=== PATIENT | male | born 1965 | race Caucasian/White ===

== ENCOUNTER → 2018-12-20 09:54 | Outpatient (CLI) | payer BC, SELFPAY ==
[2018-12-20 10:27] LABS: Basophils # 0.1 K/mm3 (0-0.2); Basophils % 0.6 % (0.1-2.0); Eosinophils # 0.3 K/mm3 (0.0-0.4); Eosinophils % 2.4 % (0.1-12.0); Hematocrit 45.5 % (42.0-52.0); Lymphocytes # 3.6 K/mm3 (0.7-4.5); Mean Corpuscular HGB Conc 32.9 g/dL (31.8-35.4); Mean Corpuscular Hemoglobin 29.5 pg (27.0-31.2); Mean Corpuscular Volume 89.5 fl (80-94); Mean Platelet Volume 7.2 fl (7.4-10.4); Monocytes % 7.3 % (1.7-9.3); Neutrophils # 9.2 K/mm3 (1.8-7.8); Neutrophils % 64.8 % (37.0-80.0); Platelet Count 277 K/mm3 (142-424); Red Blood Count 5.09 M/mm3 (4.60-6.20); Red Cell Distribution Width 13.8 % (11.5-17.5); White Blood Count 14.2 K/mm3 (4.8-10.8)
[2018-12-20 10:37] LABS: Alanine Aminotransferase 45 U/L (12-78); Albumin Level 3.3 gm/dL (3.4-5.0); Albumin/Globulin Ratio 0.8 (1.1-1.8); Alkaline Phosphatase 75 U/L (46-116); Anion Gap 11.3 mEq/L (5-15); Aspartate Amino Transferase 17 U/L (15-37); Bilirubin,Total 0.5 mg/dL (0.2-1.0); Blood Urea Nitrogen 16 mg/dL (7-18); Calcium 8.6 mg/dL (8.5-10.1); Carbon Dioxide 26 mmol/L (21.0-32.0); Chloride 105 mmol/L (98-107); Creatinine,Serum 1.02 mg/dL (0.70-1.30); Estimated Glomerular Filt Rate 77 ml/min (>60); GFR (African American) 93 ML/MIN (>60); Globulin 4.4 gm/dl (1.3-3.2); Glucose 116 mg/dL (74-106); Potassium 4.3 mmoL/L (3.5-5.1); Sodium 138 mmol/L (136-145); Total Protein,Serum 7.7 gm/dL (6.4-8.2)
[2018-12-20 11:58] LABS: Bilirubin,Direct 0.1 mg/dL (0.0-0.2); Chol/HDL Ratio 5.3 (1-3.5); Cholesterol 197 mg/dL (140-200); HDL Cholesterol 37 mg/dL (27-67); LDL Cholesterol 131 mg/dL (0-130); Triglycerides 144 mg/dL (30-200); VLDL Cholesterol 29 mg/dL (0-40)
--- NOTE | 2018-12-20 13:07 | CT_ITS ---
CT abdomen pelvis w con CLINICAL INDICATION: Lower abdominal pain extending to the right side ITS.REASON: ABD PAIN ORDERING PHYSICIAN: Daniela Dominguez APRN PATIENT AGE: 53 years COMPARISON: 09/21/2012 TECHNIQUE: Axial images obtained with sagittal and coronal reformats. All CT scans at the facility use one or more dose reduction, viz: automated exposure control, ma/kV adjustment per patient size (including targeted exams where dose is matched to indication, i.e. head), or iterative reconstruction technique. PROCEDURE: Oral Contrast: Gastroview IV Contrast: 75 mL Omnipaque 350. FINDINGS: Lung bases are clear. Postcholecystectomy change. The liver, spleen, adrenal glands, pancreas, and kidneys have an unremarkable appearance. Negative appendix. No intestinal obstruction or free air. No evidence of appendicitis. No intestinal obstruction or free air. There is diverticulosis of the descending and sigmoid colon. There is thickening of the junction of the descending and sigmoid colon in the left lower quadrant with mild stranding of the fat in this region consistent with diverticulitis. No abscess or free air evident. There is a small fat-containing lymph node in the left inguinal region at 2 points 8 x 1.6 cm. There are mildly prominent bilateral inguinal lymph nodes. These however do contain central fatty hilum and are not significantly changed. No acute bony findings. IMPRESSION: Acute diverticulitis in the left lower quadrant. No abscess or perforation. There is diverticulosis of the descending and sigmoid colon
== END ==
PROVIDERS: PCP Nurse Practitioner; Referring Provider Internal Medicine Cardiovascular Disease; Visit Provider Nurse Practitioner Family
DX: R10.30 Lower abdominal pain, unspecified (principal); E78.5 Hyperlipidemia, unspecified; I25.10 Atherosclerotic heart disease of native coronary artery without angina pectoris
CPT/HCPCS: 36415; 74177; 80053; 80061; 82248; 85025; Q9967

== ENCOUNTER → 2019-04-01 07:12 | Outpatient (CLI) | payer BC, SELFPAY | PROVIDERS: PCP Family Medicine; Visit Provider Internal Medicine | DX: E78.2 Mixed hyperlipidemia (principal); I25.10 Atherosclerotic heart disease of native coronary artery without angina pectoris; R06.09 Other forms of dyspnea; Z02.89 Encounter for other administrative examinations; Z95.5 Presence of coronary angioplasty implant and graft | CPT/HCPCS: 93306 ==

== ENCOUNTER → 2019-10-15 13:03 | Outpatient (CLI) | payer BC, SELFPAY ==
[2019-10-15 14:43] LABS: Alanine Aminotransferase 42 U/L (12-78); Albumin Level 4.3 g/dl (3.5-5.0); Alkaline Phosphatase 64 U/L (38-126); Aspartate Amino Transferase 45 U/L (17-59); Bilirubin,Indirect 0.4 mg/dL (0.0-0.9); Bilirubin,Total 0.4 mg/dl (0.2-1.3); Bilirubin,Unconjugated 0.6 mg/dL (0.0-1.1); Chol/HDL Ratio 5.7 (1-3.5); Cholesterol 249 mg/dl (140-200); HDL Cholesterol 44 mg/dl (40-60); Total Protein,Serum 7.4 g/dl (6.3-8.2); Triglycerides 252 mg/dl (30-150); VLDL Cholesterol 50 mg/dL (0-40)
[2019-10-15 14:54] LABS: Direct LDL Cholesterol 179.84 mg/dL (100-129)
== END ==
PROVIDERS: Visit Provider Internal Medicine Cardiovascular Disease
DX: I25.10 Atherosclerotic heart disease of native coronary artery without angina pectoris (principal); E78.2 Mixed hyperlipidemia; I10 Essential (primary) hypertension; R60.0 Localized edema; Z95.5 Presence of coronary angioplasty implant and graft
CPT/HCPCS: 36415; 80061; 80076

== ENCOUNTER → 2020-02-25 10:23 | Outpatient (CLI) | payer BC, SELFPAY ==
[2020-02-25 11:23] LABS: Alanine Aminotransferase 44 U/L (12-78); Aspartate Amino Transferase 38 U/L (17-59); Bilirubin,Unconjugated 0.3 mg/dL (0.0-1.1)
[2020-02-25 11:24] LABS: Alkaline Phosphatase 71 U/L (38-126); Bilirubin,Direct 0.1 mg/dl (0.0-0.4); Bilirubin,Indirect 0.3 mg/dL (0.0-0.9); Bilirubin,Total 0.4 mg/dl (0.2-1.3); Chol/HDL Ratio 3.8 (1-3.5); Cholesterol 188 mg/dl (140-200); HDL Cholesterol 49 mg/dl (40-60); Triglycerides 218 mg/dl (30-150); VLDL Cholesterol 44 mg/dL (0-40)
[2020-02-25 11:35] LABS: Direct LDL Cholesterol 119.18 mg/dL (100-129)
== END ==
PROVIDERS: Visit Provider Internal Medicine Cardiovascular Disease
DX: E78.5 Hyperlipidemia, unspecified (principal); F17.200 Nicotine dependence, unspecified, uncomplicated; G47.33 Obstructive sleep apnea (adult) (pediatric); I20.8 Other forms of angina pectoris; I20.9 Angina pectoris, unspecified; I50.30 Unspecified diastolic (congestive) heart failure; I50.42 Chronic combined systolic (congestive) and diastolic (congestive) heart failure; R06.00 Dyspnea, unspecified; R60.9 Edema, unspecified; Z95.5 Presence of coronary angioplasty implant and graft; I10 Essential (primary) hypertension; I25.10 Atherosclerotic heart disease of native coronary artery without angina pectoris; R06.09 Other forms of dyspnea; R07.9 Chest pain, unspecified
CPT/HCPCS: 36415; 80061; 80076

== ENCOUNTER → 2021-04-14 10:24 | Outpatient (CLI) | payer BC, SELFPAY ==
[2021-04-14 11:48] LABS: Alanine Aminotransferase 40 U/L (12-78); Alkaline Phosphatase 73 U/L (38-126); Anion Gap 14.7 mEq/L (5-15); Aspartate Amino Transferase 36 U/L (17-59); Bilirubin,Indirect 0.4 mg/dL (0.0-0.9); Bilirubin,Total 0.4 mg/dl (0.2-1.3); Bilirubin,Unconjugated 0.3 mg/dL (0.0-1.1); Blood Urea Nitrogen 18 mg/dl (9-20); Calcium 9.1 mg/dl (8.4-10.2); Carbon Dioxide 23 mmol/L (22.0-30.0); Chloride 106 mmol/L (98-107); Cholesterol 182 mg/dl (140-200); Estimated Glomerular Filt Rate 78 ml/min (>60); GFR (African American) 95 ML/MIN (>60); Glucose 128 mg/dl (74-100); HDL Cholesterol 45 mg/dl (40-60); Potassium 4.7 mmoL/L (3.5-5.1); Sodium 139 mmol/L (136-145); Total Protein,Serum 7.3 g/dl (6.3-8.2); Triglycerides 287 mg/dl (30-150); VLDL Cholesterol 57 mg/dL (0-40)
[2021-04-14 12:00] LABS: Direct LDL Cholesterol 94.43 mg/dL (100-129)
== END ==
PROVIDERS: Visit Provider Internal Medicine Cardiovascular Disease
DX: I50.30 Unspecified diastolic (congestive) heart failure (principal); I20.9 Angina pectoris, unspecified; R60.9 Edema, unspecified; I10 Essential (primary) hypertension; E78.5 Hyperlipidemia, unspecified; Z95.5 Presence of coronary angioplasty implant and graft
CPT/HCPCS: 36415; 80048; 80061; 80076

== ENCOUNTER 2021-04-17 13:26 | Emergency (ER) | payer BC, SELFPAY ==
[2021-04-17 13:45] VITALS: BP 150/68; PULSE 86; RESP 19; TEMP 36.7; O2SAT 96; BMI 56.9
--- NOTE | 2021-04-17 14:18 | HMH.EDUTC ---
[facility] Disposition Clinical Impression: Hematuria Qualifiers: Hematuria type: gross Qualified Code(s): R31.0 - Gross hematuria Disposition: Home, Self-Care Condition on Discharge: Good Instructions: DI for Hematuria Additional Instructions: Follow up with Dr Panda to ensure resolution and/or discuss additional testing Prescriptions: levoFLOXacin [Levaquin 500mg tab] 500 mg PO DAILY 7 Days #7 tab Transmission Status: Pending to [facility] Referrals: Tej Panda MD [Primary Care Provider] - Time of Disposition: 16:03 Medical Decision Making - Caleb Inquiry Pt receiving controlled substance: No Vital Signs: 04/17/21 13:45 Temperature 98.1 F Temperature Source Oral Pulse Rate [Right] 86 Respiratory Rate 19 Blood Pressure [Right Arm] 150/68 H Blood Pressure Mean [Right Arm] 95 02 Sat by Pulse Oximetry 96 - Lab Data Lab results reviewed: Yes: I reviewed the patient's lab results. Lab Results 04/17/21 14:45: Urine Color Yellow, Urine Appearance Clear, Urine pH 6.0, Ur Specific [place] 1.025, Urine Protein Negative, Urine Glucose (UA) Negative, Urine Ketones Negative, Urine Blood 3+, Urine Nitrate Negative, Urine Bilirubin Negative, Urine Urobilinogen 0.2, Ur Leukocyte Esterase Trace, Urine RBC 10-20, Urine WBC None, Ur Squamous Epith Cells 3-5, Urine Bacteria None 04/17/21 15:00: WBC 9.4, RBC 5.41, Hgb 16.7, Hct 51.0, MCV 94.2 H, MCH 30.8, MCHC 32.7, RDW 13.8, Plt Count 292, MPV 7.2 L, Neut % (Auto) 54.0, Lymph % (Auto) 34.0, [place] % (Auto) 7.3, Eos % (Auto) 3.7, Baso % (Auto) 1.0, Neut # (Auto) 5.1, Lymph # (Auto) 3.2, [place] # (Auto) 0.7, Eos # (Auto) 0.4, Baso # (Auto) 0.1 04/17/21 15:00: Sodium 142, Potassium 3.9, Chloride 103, Carbon Dioxide 29, Anion Gap 13.9, BUN 14, Creatinine 1.10, Estimated Creat Clear 83, Estimated GFR 70, Est GFR ( Amer) 85, Glucose 112 H, Calcium 9.2, Total Bilirubin 0.5, AST 45, ALT 48, Alkaline Phosphatase 77, Total Creatine Kinase 176 H, Total Protein 7.6, Albumin 4.0, Globulin 3.6 H, Albumin/Globulin Ratio 1.1 Result diagrams: 04/17/21 15:00 04/17/21 15:00 Orders (Tests/Meds): ORDERS Category Date Time Status Urine Culture Stat Micro 04/17/21 15:48 Ordered [facility] HPI - General Stated complaint: blood in urine Time Seen by Provider: 04/17/21 14:33 Mode of Arrival: Ambulatory Source of Information: Patient Limitations: No Limitations Description of Symptoms (Recalled from Triage Doc. by RN): blood in urine starting yesterday. no pain and no other complaints. HEENT Symptoms (Recalled from RN notes): No Resp Symptoms (Recalled from RN notes): No Skin Symptoms (Recalled from RN notes): No MS Symptoms (Recalled from RN notes): No Functional Status (Recalled from RN notes): na - History of Present Illness Provider Complaint: Patient went fishing yesterday. When he got home, he urinated and noticed a red streak running down the side of the toilet bowl. He wiped with tissue and there was a small amount of bright red blood there as well. He urinated when he woke up this am and again there was a small amount of blood. He has a history of HTN, CHF, ALLIE. No history diabetes. No history renal failure. No history kidney stones. He is on Repatha because he could not tolerate statins. He takes Lasix for CHF. He denies fever, pain. No dysuria. No flank pain. No prior history of bleeding. He is on Plavix. Onset (ago): day(s) (1) Location: genitals Relieving factors: none Exacerbating factors: none Associated symptoms: denies other symptoms Treatments prior to arrival: none - Related Data Home Medications Medication Instructions Recorded Confirmed aspirin 81 mg tablet,delayed 81 mg PO QDAY 08/08/17 04/14/21 release levothyroxine 200 mcg tablet 200 mcg PO QDAY tab 08/08/17 04/14/21 Previous Rx's Medication Instructions Recorded furosemide 40 mg tablet 80 mg PO DAILY PRN #90 tab 05/31/19 potassium chloride 10 mEq 10 meq PO QDAY WI
[2021-04-17 14:59] LABS: Appearance,Urine CLEAR (Clear); Bilirubin,Urine Negative (Negative); Blood, Urine 3+ (Negative); Color,Urine YELLOW (Yellow); Glucose,Urine (UA) Negative (Negative); Ketones,Urine Negative (Negative); Leukocyte Esterase,Urine TRACE (Negative); Microscopic, Urine URINE MICROSCOPIC (MICROSCOPIC); Nitrate,Urine Negative (Negative); Protein,Urine Negative (Negative); Specific Gravity, Urine 1.025 (1.005-1.030); Urobilinogen,Urine 0.2 EU/dl (0.2)
[2021-04-17 15:35] LABS: Basophils # 0.1 K/mm3 (0-0.2); Eosinophils # 0.4 K/mm3 (0.0-0.4); Eosinophils % 3.7 % (0.1-12.0); Hemoglobin 16.7 g/dL (14.1-18.0); Lymphocytes # 3.2 K/mm3 (0.7-4.5); Mean Corpuscular HGB Conc 32.7 g/dL (31.8-35.4); Mean Corpuscular Hemoglobin 30.8 pg (27.0-31.2); Mean Corpuscular Volume 94.2 fl (80-94); Mean Platelet Volume 7.2 fl (7.4-10.4); Monocytes # 0.7 K/mm3 (0.1-1.0); Monocytes % 7.3 % (1.7-9.3); Neutrophils # 5.1 K/mm3 (1.8-7.8); Platelet Count 292 K/mm3 (142-424); Red Blood Count 5.41 M/mm3 (4.60-6.20); Red Cell Distribution Width 13.8 % (11.5-17.5); White Blood Count 9.4 K/mm3 (4.8-10.8)
[2021-04-17 15:36] LABS: Chloride 103 mmol/L (98-107); Potassium 3.9 mmoL/L (3.5-5.1); Sodium 142 mmol/L (136-145)
[2021-04-17 15:39] LABS: Alanine Aminotransferase 48 U/L (12-78); Albumin/Globulin Ratio 1.1 (1.1-1.8); Alkaline Phosphatase 77 U/L (38-126); Anion Gap 13.9 mEq/L (5-15); Aspartate Amino Transferase 45 U/L (17-59); Bilirubin,Total 0.5 mg/dl (0.2-1.3); Blood Urea Nitrogen 14 mg/dl (9-20); Calcium 9.2 mg/dl (8.4-10.2); Carbon Dioxide 29 mmol/L (22.0-30.0); Creatine Kinase 176 U/L (55-170); Creatinine Clearance Estimated 83 mL/min (50-200); Estimated Glomerular Filt Rate 70 ml/min (>60); GFR (African American) 85 ML/MIN (>60); Globulin 3.6 g/dL (1.3-3.2); Glucose 112 mg/dl (74-100); Total Protein,Serum 7.6 g/dl (6.3-8.2)
[2021-04-17 16:16] VITALS: BP 145/68; PULSE 85; RESP 16; TEMP 36.7
== END 2021-04-17 16:16 | disposition home or self-care (01) ==
PROVIDERS: Emergency Provider Physician Assistant; PCP Family Medicine
DX: R31.0 Gross hematuria (principal); I10 Essential (primary) hypertension; I50.9 Heart failure, unspecified; E03.9 Hypothyroidism, unspecified; E78.5 Hyperlipidemia, unspecified; I25.10 Atherosclerotic heart disease of native coronary artery without angina pectoris; I25.2 Old myocardial infarction; Z79.899 Other long term (current) drug therapy
CPT/HCPCS: 80053; 81001; 82550; 85025; 87086; 99202; G0463

== ENCOUNTER → 2021-04-20 06:14 | Outpatient (CLI) | payer BC, SELFPAY ==
--- NOTE | 2021-04-20 06:16 | NM_ITS ---
APPROVED REPORT Exam: Nuclear Stress Test Indication: CAD, Hx of NV, HTN, High cholesterol, Tobacco use Patient Location: Outpatient Stress Tech: Lorraine HURTADO Tech:Linh Don, ARRT, RT (R)(N) Ht: 5 ft 11 in Wt: 408 lbs HR: 65 bpm BP: 123/66 mmHg BSA: 2.86 m2 BMI: 56.8 History: CAD, Hx of NV, HTN, High cholesterol, Tobacco use Procedure: Patient received a 0.4 mg of intravenous Lexiscan, resting heart rate 65 bpm, resting blood pressure 123/66 mmHg, with Lexiscan maximum heart rate achived was 83 bpm which is Less than 85 % of the maximum predicted heart rate and blood pressure was 130/68 mmHg. With Lexiscan, patient denied any complaint of chest pain. Electrocardiogram Resting electrocardiogram showed sinus rhythm, with Lexiscan there is less than 1.[address] segment depression noted from the baseline EKG. The EKG portion of the Lexiscan is nondiagnostic. Cardiac Stress and Resting SPECT Images: Cardiac Stress and Resting SPECT images were obtained using technetium 99m Myoview 29.9 mCi stress and 10.23 mCi at rest. Gated SPECT for analysis of segmental wall motion and calculation of the ejection fraction also done. Prone images were also obtained. Cardiac stress and resting SPECT images show uniform myocardial activity without segmental perfusion abnormality, computer derived ejection fraction is 62% with no regional wall motion abnormality, there is transient ischemic dilatation of the left ventricle noted, however it appears to be artifactual than a true finding. Right ventricle is normal size and contractility. Conclusion: 1. The EKG portion of the Lexiscan Myoview is nondiagnostic. 2. No scintigraphic evidence of reversible ischemia seen, computer derived ejection fraction 62% with no regional wall motion abnormality, right ventricle is normal size and contractility 3. Likely normal Lexiscan Myoview study. Electronically signed by : Rafy Senior MD 04/21/2021 09:56:34
--- NOTE | 2021-04-20 06:16 | CA_ITS ---
APPROVED REPORT Exam: Pharmacologic Technologist: Lorraine Calles Ht: 5 ft 11 in Wt: 408 lbs BSA: 2.86 m2 HR: 65 bpm BP: 123/60 mmHg Medical History Medications: Metoprolol,,,,, Asa,,,,, Losartan,,,,, CloPIdogrel,,,,, Nitroglycerin,,,,, IsosoBIDE,,,,, Potassium,,,,, LevothRYROXINE,,,,, Furosemide,,,,, ALIrocumab,,,,, Stress Test Details Test: LEXISCAN HR Resting HR: 65 bpm Max Heart Rate (APMHR): 167.242861 bpm Max HR Achieved: 87 bpm Target HR (85% APMHR): 141.987460 bpm % of APMHR: 52.10 Recovery HR: 75 bpm BP Resting BP: 123.0/60.0 mmHg Max BP: 135.0/64.0 mmHg Recovery BP: 135.0/64.0 mmHg ECG Resting ECG: Normal sinus rhythm, PVC, PAC, LPFB, poor R wave progression. Clinical Exercise duration: 04:01 min Highest Stage Achieved: Exercise capacity: 1.0 METs Stress ECG Conclusion Symptoms: Shortness of air, mild malaise and headache. No chest pain. Arrhythmias/Ectopy: Occasional isolated PVC. ST-T Changes: No significant changes. Conclusion: Unremarkable Lexiscan stress. Myoview images reported separately. Electronically signed by : Rafy Senior MD 04/21/2021 09:53:15
--- NOTE | 2021-04-20 06:16 | CA_ITS ---
APPROVED REPORT EXAM: Comprehensive 2D, Doppler, and color-flow Echocardiogram Die Reamer: Polina Evans CRT Ht: 5 ft 11 in Wt: 408lbs BSA: 2.86 BP: 121/61 mmHg Indications: CAD, edema, HTN, smoker, SOB, Obesity, HLD 2D Dimensions LVOT 2.26 cm (M/F) 1.5-2.5 LA Volume 44.60 mL LA Volume Index 15.60 mL/m2 (M/F) 16-34 M-Mode Dimensions RVDd 2.87 cm (0.9-2.6) LA Diam 4.41 cm (1.9-4.0) LVDd 4.97 cm (3.5-5.7) Ao Diam 3.86 cm (2.0-3.7) LVDs 2.64 cm (3.5-5.7) IVSd 1.42 cm (0.6-1.1) PWd 0.96 cm (0.6-1.1) EF (Teich) 78.00% FS 46.90% EDV (Teich) 116.60 mL ESV (Teich) 25.60 mL LV Diastology E Decel Time 153.00 (160-240 msec) E/A Ratio 0.81 Aortic Valve AO Peak GR. 10.80 mmHg Mitral Valve MV A Velocity 94.00 (40-130 cm/s) E/A Ratio 0.81 MV Decel. Time 153.00 (160-240 ms) Pulmonary Valve PV Peak Velocity 111.00 (50-150 cm/s) Tricuspid Valve TR P. Velocity 129.00 cm/s RAP Estimate 10.00 mmHg RVSP 16.70 mmHg Left Ventricle Technically difficult study because of the patient factors and poor acoustic windows. Left atrium is upper limit of the normal size, left ventricle is normal size, visually estimated ejection fraction of 55% with no obvious regional wall motion abnormality, endocardial surfaces are poorly visualized. Diastolic parameters are inconclusive Right Ventricle Right atrium and right ventricle qualitatively normal size and function. Aortic Valve Aortic valve is minimally thickened and fibrosed. There is no aortic stenosis or aortic insufficiency. Mitral Valve Mitral valve grossly normal, there is trace mitral regurgitation. Tricuspid Valve Tricuspid valve grossly normal, there is trace tricuspid regurgitation, tricuspid regurgitation jet velocity is inadequate for calculation of the right ventricular systolic pressure. Pulmonic Valve Pulmonic valve is poorly visualized. Great Vessels Aortic root is normal size. Pericardium No significant pericardial effusion noted. Conclusion 1. Technically difficult study, normal left ventricular size with preserved left ventricular systolic function, estimated ejection fraction 55% with no regional wall motion abnormality. Diastolic parameters are inconclusive. 2. Trace mitral and tricuspid regurgitation. 3. No significant pericardial effusion noted. Electronically signed by : Rafy Senior MD 04/21/2021 10:11:15
--- NOTE | 2021-04-20 08:15 | HMH.ITSHM ---
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 []SPIRONOLACTONE POTASSIUM NITRO METOPROLOL LOSARTAN ALIROCUMAB LEVOFLOXACIN ISOSORBIDE FUROSEMIDE CLOPIDOGREL ASA
== END ==
PROVIDERS: PCP Family Medicine; Visit Provider Internal Medicine Cardiovascular Disease
DX: I20.9 Angina pectoris, unspecified (principal); I50.30 Unspecified diastolic (congestive) heart failure; I11.0 Hypertensive heart disease with heart failure; E78.5 Hyperlipidemia, unspecified; R60.9 Edema, unspecified; Z95.5 Presence of coronary angioplasty implant and graft
CPT/HCPCS: 78452; 93017; 93306; A9502; J2785

== ENCOUNTER 2021-05-07 17:25 | Emergency (ER) | payer BC, SELFPAY ==
[2021-05-07 17:23] VITALS: BP 157/93; PULSE 76; RESP 16; TEMP 36.4; O2SAT 95; BMI 56.9
--- NOTE | 2021-05-07 17:24 | CT_ITS ---
PROCEDURE INFORMATION: Exam: CT Head Without Contrast Exam date and time: 05/07/2021 5:24 PM Age: 55 years old Clinical indication: Injury or trauma; Blunt trauma (contusions or hematomas); Injury date: 05/07/21; Injury details: Tractor rolled pain lt shoulder; Additional info: Rolled tractor TECHNIQUE: Imaging protocol: Computed tomography of the head without contrast. 3D rendering (Not supervised by radiologist): MIP and/or 3D reconstructed images were created by the technologist. Radiation optimization: All CT scans at this facility use at least one of these dose optimization techniques: automated exposure control; mA and/or kV adjustment per patient size (includes targeted exams where dose is matched to clinical indication); or iterative reconstruction. COMPARISON: No relevant prior studies available. FINDINGS: Brain: Normal. No hemorrhage. Unremarkable white matter. No mass effect. Cerebral ventricles: No ventriculomegaly. 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 Mastoid air cells: Visualized mastoid air cells are well aerated. Bones/joints: Unremarkable. No acute fracture. Soft tissues: Unremarkable. IMPRESSION: No acute intracranial abnormality.
--- NOTE | 2021-05-07 17:25 | XR_ITS ---
PROCEDURE INFORMATION: Exam: XR Left Shoulder Exam date and time: 05/07/2021 5:25 PM Age: 55 years old Clinical indication: Injury or trauma; Other: Tracto rolled; Blunt trauma (contusions or hematomas); Left; Injury date: 05/07/21; Injury details: PT rolled tractor C/O lt shoulder paain TECHNIQUE: Imaging protocol: XR Left shoulder. Views: 2 or more views. COMPARISON: CR XR CHEST AP 05/07/2021 5:58 PM FINDINGS: Bones/joints: No acute fracture or malalignment. Superior humeral head migration suggestive of rotator cuff tear. Soft tissues: Normal. IMPRESSION: 1. No acute osseous abnormality in the left shoulder. 2. Superior migration of the left humeral head suggestive of rotator cuff tear.
--- NOTE | 2021-05-07 17:25 | CT_ITS ---
PROCEDURE INFORMATION: Exam: CT Cervical Spine Without Contrast Exam date and time: 05/07/2021 6:25 PM Age: 55 years old Clinical indication: Injury or trauma; Blunt trauma; Injury date: 05-07-21; Injury details: Tractor rolled over onto PT; Patient HX: Neck pain; Additional info: Rolled tractor TECHNIQUE: Imaging protocol: Computed tomography images of the cervical spine without contrast. Radiation optimization: All CT scans at this facility use at least one of these dose optimization techniques: automated exposure control; mA and/or kV adjustment per patient size (includes targeted exams where dose is matched to clinical indication); or iterative reconstruction. COMPARISON: CT HEAD/BRAIN WO CON 05/07/2021 6:18 PM FINDINGS: Bones/joints: Nonspecific straightening. Vertebral body height and AP alignment is preserved. Moderate degenerative change about the dens. Moderate prevertebral osteophytosis. No acute cervical spine fracture. Discs/Spinal canal/Neural foramina: Multilevel central and foraminal stenoses including high-grade central canal stenosis at C2-C3. Lungs: Lung apices are normal. Pleural spaces: No visible pneumothorax. Vasculature: Vascular calcification. Soft tissues: Unremarkable. IMPRESSION: No acute cervical spine fracture.
--- NOTE | 2021-05-07 17:26 | XR_ITS ---
PROCEDURE INFORMATION: Exam: XR Chest Exam date and time: 05/07/2021 5:26 PM Age: 55 years old Clinical indication: Injury or trauma; Blunt trauma (contusions or hematomas); Injury date: 05-07-21; Injury details: Tractor rolled onto PT; Additional info: Rolled tractor TECHNIQUE: Imaging protocol: XR of the chest. Views: 4 or more views. COMPARISON: ABDPELW CT abdomen pelvis w con 12/20/2018 1:18 PM FINDINGS: Lungs: Lungs are clear. Pleural spaces: No pleural effusion. No pneumothorax. Heart/Mediastinum: Cardiomediastinal silouhette is within normal limits. Bones/joints: No acute osseous abnormality. Soft tissues: Unremarkable. IMPRESSION: No acute findings.
--- NOTE | 2021-05-07 17:27 | HMH.EDGENADL ---
ED Disposition Clinical Impression: Rotator cuff tear Qualifiers: Rotator cuff tear extent: unspecified tear extent Rotator cuff tear trauma status: traumatic Encounter type: initial encounter Laterality: left Qualified Code(s): S46.012A - Strain of muscle(s) and tendon(s) of the rotator cuff of left shoulder, initial encounter Shoulder abrasion Qualifiers: Encounter type: initial encounter Laterality: left Qualified Code(s): S40.212A - Abrasion of left shoulder, initial encounter Shoulder contusion Qualifiers: Encounter type: initial encounter Laterality: left Qualified Code(s): S40.012A - Contusion of left shoulder, initial encounter Disposition: Home, Self-Care Condition on Discharge: Fair Instructions: DI for Rotator Cuff Injury, DI for Contusion, DI for Closed Head Injury, DI for Abrasion Additional Instructions: Sling and swath until seen by orthopedics. Percocet as needed for pain. Ice 20 minutes 4-5 times a day for pain and swelling. Additional instructions for TRAUMA: See your physician as soon as possible for further evaluation. Return to the emergency department immediately if severe headache, altered mental status or confusion, severe chest pain, shortness of breath, abdominal pain, vomiting, severe neck pain, numbness or weakness of arms or legs. Additional instructions for CONTROLLED SUBSTANCES: You have been prescribed a medication that is a controlled substance. Controlled substances include pain medications known as opiates and sedative nerve medications known as benzodiazepines. Tramadol, fioricet, and gabapentin are also controlled substances. Some common opiates include: Codeine (such as Tylenol #3) Hydrocodone (Vicodin, Lortab, Lorcet, [place]) Oxycodone (Percocet, Percodan, Oxycodone, Oxy IR) Some common benzodiazepines include: Diazepam (Valium) Lorazepam (Ativan) Alprazolam (Xanax) Clonazepam (Klonopin) Oxazepam (Serax) All of these controlled substances are highly addictive and frequently abused. Misuse can and frequently does lead to addiction as well as overdose and . Medication should be stored in a locked cabinet or other secure storage unit. Do not store the medication in a motor vehicle. Short term supplies, 3 days or less, are prescribed because of the highly addictive nature of the medication. Any of the controlled substance medication NOT taken should be disposed of properly and NOT SAVED. The recommended method of disposing of unused medications is: Place the medicines in a sealable plastic bag. If the medicine is a solid, crush it or add water to dissolve it. Add something undesirable (cat litter, coffee grounds, etc.) Dispose of sealed bag in household trash Do not flush or pour unused medicines down a sink or drain. Controlled substances should not be shared, given away or sold. Because of the addictive nature and frequent abuse, these medications are sometimes stolen. These medications should be kept in a safe place where they cannot be stolen. Do not keep them in your car or purse. Lost or stolen prescriptions for controlled substances WILL NOT BE REFILLED in this emergency department, regardless of whether a police report was filed. Prescriptions: Oxycodone HCl/Acetaminophen [Percocet 5/325mg tablet] 1 tab PO Q6HP PRN #10 tablet PRN Reason: Moderate To Severe Pain Transmission Status: Sent to [facility] Referrals: Tej Panda MD [Primary Care Provider] - Anton Norton MD [Staff Physician] - 3 days - Critical Care Critical Care Time: No Attestation: On , the high probability of a clinically significant, sudden or life threatening deterioration of the following system(s) required my full and direct attention, intervention and personal management. The time I documented below is in addition to time spent performing reported procedures but includes the following listed in this critical care notation. Medical Decision Sam
--- NOTE | 2021-05-07 17:46 | CT_ITS ---
PROCEDURE INFORMATION: Exam: CT Chest With Contrast; Diagnostic Exam date and time: 05/07/2021 5:46 PM Age: 55 years old Clinical indication: Injury or trauma; Blunt trauma (contusions or hematomas); Injury date: 05-07-21; Injury details: Tractor rolled pain lt shoulder; Additional info: Rolled tractor TECHNIQUE: Imaging protocol: Diagnostic computed tomography of the chest with contrast. Radiation optimization: All CT scans at this facility use at least one of these dose optimization techniques: automated exposure control; mA and/or kV adjustment per patient size (includes targeted exams where dose is matched to clinical indication); or iterative reconstruction. Contrast material: ISOVUE; Contrast volume: 75 ml; Contrast route: IV; COMPARISON: CR XR CHEST AP 05/07/2021 5:58 PM FINDINGS: Lungs: No pulmonary contusion. No appreciable pulmonary edema. Pleural spaces: No pneumothorax. No pleural effusion. Heart: Three vessel coronary artery disease. Heart is normal in size. No pericardial effusion. Aortic valve leaflet calcifications. Aorta: Ascending aortic ectasia. No aortic aneurysm or dissection. Lymph nodes: Multiple conspicuous subcentimeter mediastinal and hilar lymph nodes. No enlarged lymph nodes by CT criteria. Bones/joints: Multilevel bridging osteophytes in the spine, compatible with diffuse idiopathic skeletal hyperostosis (DISH). No acute osseous abnormality. Soft tissues: Gynecomastia. IMPRESSION: 1. No acute findings in the chest. 2. Additional non-acute ancillary findings, as detailed above.
--- NOTE | 2021-05-07 17:47 | CT_ITS ---
PROCEDURE INFORMATION: Exam: CT Abdomen And Pelvis With Contrast Exam date and time: 05/07/2021 5:47 PM Age: 55 years old Clinical indication: Injury or trauma; Blunt; Generalized; Injury date: 05-07-21; Injury details: Tractor rolled; Additional info: Rolled tractor TECHNIQUE: Imaging protocol: Computed tomography of the abdomen and pelvis with contrast. Radiation optimization: All CT scans at this facility use at least one of these dose optimization techniques: automated exposure control; mA and/or kV adjustment per patient size (includes targeted exams where dose is matched to clinical indication); or iterative reconstruction. Contrast material: ISOVUE; Contrast volume: 75 ml; Contrast route: IV; COMPARISON: ABDPELW CT abdomen pelvis w con 12/20/2018 1:18 PM FINDINGS: Limitations: Images are severely degraded by photon starvation artifact related to patient's arm positioning. Liver: Fatty liver. Liver contour is mildly nodular and there is widening of the interlobar fissures. Gallbladder and bile ducts: Status post cholecystectomy. Pancreas: Fatty infiltration of the pancreas. Spleen: Within normal limits. Adrenal glands: Within normal limits. Kidneys and ureters: Within normal limits. Stomach and bowel: Colonic diverticulosis without inflammatory changes. Appendix: Appendix is normal. Intraperitoneal space: No free fluid. No pneumoperitoneum. Vasculature: Moderate amount of calcified and non-calcified arterial atherosclerosis. No abdominal aortic aneurysm. Lymph nodes: No enlarged lymph nodes by CT criteria. Urinary bladder: Within normal limits. Reproductive: Prostate is not included in the field of view. Bones/joints: No acute osseous abnormality, noting the lower pelvis is not included in the field of view. Soft tissues: Unremarkable. IMPRESSION: 1. No acute findings in the abdomen or pelvis. 2. Fatty liver with morphologic changes suggestive of early cirrhosis. Please correlate with liver function tests. 3. Additional chronic ancillary findings are stable, as detailed above. 4. Chest CT reported separately.
[2021-05-07 18:02] LABS: Basophils # 0.2 K/mm3 (0-0.2); Eosinophils # 0.5 K/mm3 (0.0-0.4); Eosinophils % 2.8 % (0.1-12.0); Hemoglobin 15.9 g/dL (14.1-18.0); Lymphocytes # 2.8 K/mm3 (0.7-4.5); Lymphocytes % 17.8 % (10-50); Mean Corpuscular Hemoglobin 30.3 pg (27.0-31.2); Mean Corpuscular Volume 91.7 fl (80-94); Monocytes # 0.8 K/mm3 (0.1-1.0); Neutrophils # 11.6 K/mm3 (1.8-7.8); Neutrophils % 73.3 % (37.0-80.0); Platelet Count 353 K/mm3 (142-424); Red Blood Count 5.24 M/mm3 (4.60-6.20); Red Cell Distribution Width 14.3 % (11.5-17.5); White Blood Count 15.8 K/mm3 (4.8-10.8)
[2021-05-07 18:10] LABS: Alanine Aminotransferase 43 U/L (12-78); Albumin/Globulin Ratio 1.2 (1.1-1.8); Alkaline Phosphatase 74 U/L (38-126); Anion Gap 12.2 mEq/L (5-15); Aspartate Amino Transferase 55 U/L (17-59); Bilirubin,Total 0.5 mg/dl (0.2-1.3); Blood Urea Nitrogen 14 mg/dl (9-20); Carbon Dioxide 20 mmol/L (22.0-30.0); Chloride 108 mmol/L (98-107); Estimated Glomerular Filt Rate 88 ml/min (>60); GFR (African American) 107 ML/MIN (>60); Globulin 3.4 g/dL (1.3-3.2); Glucose 143 mg/dl (74-100); Potassium 4.2 mmoL/L (3.5-5.1); Sodium 136 mmol/L (136-145); Total Protein,Serum 7.4 g/dl (6.3-8.2)
[2021-05-07 18:11] LABS: MANUAL DIFFERENTIAL MANUAL DIFFERENTIAL (MANUAL DIFF)
[2021-05-07 18:24] LABS: Eosinophils % 3 % (0-3); Lymphocytes % 12 % (10-50); Monocytes % 4 % (2-9); Neutrophils % 78 % (42-76); Total Cells Counted 100
[2021-05-07 18:26] LABS: Platelet Estimate Normal; RBC Morphology Normal
--- NOTE | 2021-05-07 20:27 | PC.NURSE ---
Called to check on cervial spine films. Advised she would [facility] to check
[2021-05-07 20:55] VITALS: BP 140/70; PULSE 80; RESP 16; TEMP 37; O2SAT 98
== END 2021-05-07 20:56 | disposition home or self-care (01) ==
PROVIDERS: Emergency Provider Emergency Medicine; PCP Family Medicine
DX: S46.012A Strain of muscle(s) and tendon(s) of the rotator cuff of left shoulder, initial encounter (principal); S40.212A Abrasion of left shoulder, initial encounter; S40.012A Contusion of left shoulder, initial encounter; V84.5XXA Driver of special agricultural vehicle injured in nontraffic accident, initial encounter; Y92.73 Farm field as the place of occurrence of the external cause; I25.10 Atherosclerotic heart disease of native coronary artery without angina pectoris; F17.210 Nicotine dependence, cigarettes, uncomplicated; E78.5 Hyperlipidemia, unspecified; I10 Essential (primary) hypertension; I25.2 Old myocardial infarction
CPT/HCPCS: 70450; 71045; 71260; 72125; 73030; 74177; 80053; 85007; 85025; 96374; 96375; 99282; J2405; Q9967

== ENCOUNTER → 2021-12-29 11:06 | Outpatient (CLI) | payer BC, SELFPAY ==
[2021-12-29 11:23] LABS: Basophils # 0.3 K/mm3 (0-0.2); Basophils % 2.3 % (0.1-2.0); Eosinophils # 0.6 K/mm3 (0.0-0.4); Eosinophils % 4.7 % (0.1-12.0); Hematocrit 47.5 % (42.0-52.0); Hemoglobin 15.3 g/dL (14.1-18.0); Lymphocytes # 2.4 K/mm3 (0.7-4.5); Mean Corpuscular HGB Conc 32.2 g/dL (31.8-35.4); Mean Corpuscular Hemoglobin 30.5 pg (27.0-31.2); Mean Corpuscular Volume 94.7 fl (80-94); Mean Platelet Volume 8.6 fl (7.4-10.4); Monocytes # 0.4 K/mm3 (0.1-1.0); Monocytes % 3.5 % (1.7-9.3); Neutrophils # 8.9 K/mm3 (1.8-7.8); Neutrophils % 70.4 % (37.0-80.0); Platelet Count 303 K/mm3 (142-424); Red Blood Count 5.02 M/mm3 (4.60-6.20); Red Cell Distribution Width 13.7 % (11.5-17.5); White Blood Count 12.6 K/mm3 (4.8-10.8)
[2021-12-29 11:53] LABS: Hemoglobin A1C 12.4 % (4.0-6.0)
[2021-12-29 11:59] LABS: Alanine Aminotransferase 81 U/L (12-78); Albumin Level 4.1 g/dl (3.5-5.0); Albumin/Globulin Ratio 1.2 (1.1-1.8); Alkaline Phosphatase 157 U/L (38-126); Anion Gap 15.6 mEq/L (5-15); Aspartate Amino Transferase 127 U/L (17-59); Bilirubin,Total 0.6 mg/dl (0.2-1.3); Blood Urea Nitrogen 21 mg/dl (9-20); Calcium 10.4 mg/dl (8.4-10.2); Carbon Dioxide 31 mmol/L (22.0-30.0); Chloride 92 mmol/L (98-107); Chol/HDL Ratio 5.6 (1-3.5); Cholesterol 202 mg/dl (140-200); Estimated Glomerular Filt Rate 58 ml/min (>60); GFR (African American) 70 ML/MIN (>60); Globulin 3.5 g/dL (1.3-3.2); HDL Cholesterol 36 mg/dl (40-60); Magnesium 1.8 mg/dl (1.6-2.3); Potassium 4.6 mmoL/L (3.5-5.1); Sodium 134 mmol/L (136-145); Total Protein,Serum 7.6 g/dl (6.3-8.2); Triglycerides 197 mg/dl (30-150); VLDL Cholesterol 39 mg/dL (0-40)
[2021-12-29 12:01] LABS: Free Thyroxine Index 2.3 ug/dL (5.93-13.13); T4 (Thyroxine) 8.1 ug/dl (5.53-11.0); Triiodothryronine (T3) Uptake 28 % (23.5-40.5)
[2021-12-29 12:09] LABS: Direct LDL Cholesterol 138.94 mg/dL (100-129)
[2021-12-29 12:12] LABS: Glucose 427 mg/dl (74-100)
== END ==
PROVIDERS: Visit Provider Internal Medicine Adolescent Medicine
DX: I89.0 Lymphedema, not elsewhere classified (principal); E11.65 Type 2 diabetes mellitus with hyperglycemia; E78.2 Mixed hyperlipidemia
CPT/HCPCS: 36415; 80053; 80061; 83036; 83735; 84436; 84443; 84479; 85025

== ENCOUNTER → 2022-04-25 16:52 | Outpatient (CLI) | payer BC, SELFPAY | PROVIDERS: PCP Nurse Practitioner Family; Visit Provider Nurse Practitioner Family | DX: B35.1 Tinea unguium (principal) | CPT/HCPCS: 87102; 87206 ==

== ENCOUNTER 2022-05-30 11:00 | Outpatient (RCR) | payer BC, SELFPAY ==
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
--- NOTE | 2022-02-17 14:34 | HMH.RHREAS ---
Rehab Reassessment Rehab OP Re-assessment Start: 02/17/22 14:30 Freq: Status: Active Protocol: Document 02/17/22 14:31 SONY (Rec: 02/17/22 14:34 SONY [id number]) Electronically Signed By Gonzalez Orellana, PT 02/17/22 14:31 Rehab Re-assessment Subjective Subjective Pt reports, I haven't been able to come for a couple weeks because me and my both had COVID. Objective Objective Notes B LE continue to presents with multiple small blisters in the lower legs. Tissue remains hard to palpation in B lower legs with continued moderate erythema. Edema remains 2+ pitting. Assessment Progress Assessment Slower Than Expected Assessment Notes Pt progress has been slowed due to other illness as noted above. He continues to have pitting edema, erythema, and mild lipodermatosclerosis of B lower legs. Patient goals met none Goals Not Met ST,2,3 LT,2,3,4,5 Revised Goals none Plan Plan Continue per initial POC Frequency of Therapy 2 x/wk Duration of therapy 4 wks Time and Billing Re-Eval Time 14 Re-Eval Billing Units 1 PHYSICIAN CERTIFICATION: I certify the specified therapy services for Maximo Espitia are required, authorized, and reviewed every 30 days.
--- NOTE | 2022-03-21 11:25 | HMH.RHREAS ---
Rehab Reassessment Rehab OP Re-assessment Start: 02/17/22 14:30 Freq: Status: Active Protocol: Document 03/21/22 11:22 SONY (Rec: 03/21/22 11:25 SONY [id number]) Electronically Signed By Gonzalez Orellana, PT 03/21/22 11:22 Rehab Re-assessment Subjective Subjective Pt reports much less pain and tenderness overall, He feels very happy with his progress. Objective Objective Notes Circumferential measurements: R LE total -10.8 cm. L LE total -11.4 cm. Tissue remains slightly hard to palpation in B lower legs with continued moderate erythema. Less tenderness to palpation noted. Assessment Progress Assessment Progressing as Expected Assessment Notes Significantly improved palpation tenderness and overall edema. Less pitting noted. Erythema remains. Tissue stiffness is decreasing . Patient goals met ST,2,3 Goals Not Met LT,2,3,4,5 Revised Goals none Plan Plan Continue per initial POC Frequency of Therapy 2 x/wk Duration of therapy 4 wks Time and Billing Re-Eval Time 15 Re-Eval Billing Units 1 PHYSICIAN CERTIFICATION: I certify the specified therapy services for Maximo Espitia are required, authorized, and reviewed every 30 days.
--- NOTE | 2022-04-18 11:25 | HMH.RHREAS ---
Rehab Reassessment Rehab OP Re-assessment Start: 02/17/22 14:30 Freq: Status: Active Protocol: Document 04/18/22 11:22 SONY (Rec: 04/18/22 11:25 SONY [id number]) E-signed By Gonzalez Orellana, PT Rehab Re-assessment Subjective Subjective Pt reports, I get a little burning on the back of my left calf sometimes, but only every now and then and its not bad at all. Objective Objective Notes Circumferential measurements: R LE total 374.0 cm. L LE total 376.9 cm. Tissue much less hard to palpation in B lower legs, but mild fibrotic edema remains and B LE with continued moderate erythema. Less tenderness to palpation continues with less pain overall as well. Assessment Progress Assessment Progressing as Expected Assessment Notes Pt has shown significant reduction in fibrotic edema overall, though a small amount remains in B lower legs. Much softer tissue quality from upper ankle superiorly. Continues to improve mobility with decreased edema. Patient goals met ST,2,3 Goals Not Met LT,2,3,4,5 Revised Goals none Plan Plan Continue per initial POC Frequency of Therapy 2 x/wk Duration of therapy 4 wks Time and Billing Re-Eval Time 13 Re-Eval Billing Units 1 PHYSICIAN CERTIFICATION: I certify the specified therapy services for Maximo Espitia are required, authorized, and reviewed every 30 days.
--- NOTE | 2022-05-30 11:39 | HMH.RHREAS ---
Rehab Reassessment Rehab OP Re-assessment Start: 02/17/22 14:30 Freq: Status: Active Protocol: Document 05/30/22 11:33 [email or web address] (Rec: 05/30/22 11:38 PHOJAMES [id number]) E-signed By Gonzalez Orellana, PT Rehab Re-assessment Subjective Subjective Pt reports no c/o pain in B Lower legs and no tenderness. I haven't been here for a week and I don't feel any worse. Objective Objective Notes Tissue much less hard to palpation in B lower legs, very minimal fibrotic edema remains and B LE at the ankle only. Blanchable erythema remains, but is stable. 0/4 tenderness to palpation noted this date. No pitting edema at all. Assessment Progress Assessment Progressing as Expected Assessment Notes Pt appears to be healing very well and maintains his decreased edema with home program independently. He continues to await lymphedema pumps for home use, but otherwise independent with self treatment. Patient goals met ST,2,3 LT,2,3,4,5 Goals Not Met none Revised Goals none Plan Plan Will D/C at this time with continued home program. Time and Billing Re-Eval Time 14 Re-Eval Billing Units 1 PHYSICIAN CERTIFICATION: I certify the specified therapy services for Maximo Espitia are required, authorized, and reviewed every 30 days.
== END 2022-05-30 12:00 | disposition home or self-care (01) ==
LOC: PT 11:00
PROVIDERS: Visit Provider Internal Medicine Adolescent Medicine
DX: I89.0 Lymphedema, not elsewhere classified (principal)
CPT/HCPCS: 97140; 97162; 97164; 97760

== ENCOUNTER 2024-03-10 13:05 | Emergency (ER) | payer BC, SELFPAY ==
[2024-03-10] VITALS (13 sets, daily range): BP systolic 90–125; BP diastolic 43–67; PULSE 57–77; RESP 16–20; TEMP 36.4–36.6; O2SAT 95–97; BMI 52.9
--- NOTE | 2024-03-10 13:32 | PC.NURSE ---
dr link at bedside
--- NOTE | 2024-03-10 13:33 | CT_ITS ---
FINAL REPORT CLINICAL HISTORY: fall, pain COMPARISON: None FINDINGS: Axial imaging of the lumbar spine was obtained without contrast. Sagittal and coronal reformatted images were also obtained and reviewed.This study was performed with techniques to keep radiation doses as low as reasonably achievable (ALARA). Individualized dose reduction techniques using automated exposure control or adjustment of mA and/or kV according to the patient's size were employed. There is artifact secondary to patient's body habitus. There is no fracture. The vertebral alignment is normal. The disc spaces are preserved. Schmorl's nodes are noted at several levels. There is sclerosis in the upper sacrum favored to be reactive. There is no evidence of significant central canal stenosis. IMPRESSION: No acute bony abnormality. Reviewed, Interpreted and Dictated by Shoaib Solomon III, MD Transcribed by Josefina Marroquin Authenticated and '[facility]
--- NOTE | 2024-03-10 13:33 | CT_ITS ---
FINAL REPORT CLINICAL HISTORY: fall, pain COMPARISON: None FINDINGS: Axial CT images of the cervical spine were obtained without contrast. Sagittal and coronal reformatted images were also obtained. This study was performed with techniques to keep radiation doses as low as reasonably achievable (ALARA). Individualized dose reduction techniques using automated exposure control or adjustment of mA and/or kV according to the patient's size were employed. There is artifact secondary to patient's body habitus. There is no evidence of fracture or dislocation. The bony alignment is normal. There is moderate to severe degenerative change with multilevel disc osteophytes causing multilevel neural foraminal narrowing. There is moderate central canal stenosis at C2-3. There is mild central canal stenosis at multiple other levels. No paraspinous soft tissue abnormality is seen. IMPRESSION: No fracture or acute bony abnormality identified. Reviewed, Interpreted and Dictated by Shoaib Solomon III, MD Transcribed by Josefina Marroquin Authenticated and . [facility]
--- NOTE | 2024-03-10 13:33 | CT_ITS ---
FINAL REPORT CLINICAL HISTORY: fall, pain FINDINGS: Axial images of the head were obtained without contrast. Coronal reformatted images were also obtained.This study was performed with techniques to keep radiation doses as low as reasonably achievable (ALARA). Individualized dose reduction techniques using automated exposure control or adjustment of mA and/or kV according to the patient's size were employed. There is no evidence of intracranial hemorrhage or mass. The ventricular size is within normal limits. There is no evidence of shift of the midline structures. No abnormal extra axial fluid collection is identified. There is a lytic focus in the right frontal bone with peripheral sclerotic rim measuring 7 mm which is nonspecific. This can be further evaluated with bone scan or follow-up CT in 6 months to evaluate for stability. 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 IMPRESSION: No acute intracranial abnormality. Lytic focus in the right frontal bone with peripheral sclerotic rim which can be further evaluated with bone scan or CT in 6 months to evaluate for stability. Reviewed, Interpreted and Dictated by Shoaib Solomon III, MD Transcribed by Christie Guy Authenticated and [facility]
--- NOTE | 2024-03-10 13:33 | CT_ITS ---
FINAL REPORT TECHNIQUE: Axial images through the pelvis were performed by computed tomography. Sagittal and coronal reconstruction images were performed. This study was performed with techniques to keep radiation doses as low as reasonably achievable (ALARA). Individualized dose reduction techniques using automated exposure control or adjustment of mA and/or kV according to the patient's size were employed. CLINICAL HISTORY: fall, pain COMPARISON: None FINDINGS: No fracture is identified. No dislocation identified. Degenerative changes are noted in the hips bilaterally. No soft tissue abnormality. IMPRESSION: No acute process. Reviewed, Interpreted and Dictated by Shoaib oSlomon III, MD Transcribed by Josefina Marroquin Authenticated and [facility]
--- NOTE | 2024-03-10 13:33 | CT_ITS ---
FINAL REPORT CLINICAL HISTORY: fall, pain COMPARISON: None FINDINGS: Axial CT images of the thoracic spine were obtained without contrast. Sagittal and coronal reformatted images were also obtained. This study was performed with techniques to keep radiation doses as low as reasonably achievable (ALARA). Individualized dose reduction techniques using automated exposure control or adjustment of mA and/or kV according to the patient's size were employed. Artifact is noted secondary to patient's body habitus. There is no evidence of fracture. The vertebral alignment is normal. Multilevel moderate degenerative changes are noted with multilevel osteophytes. There is no evidence of significant canal stenosis. No paraspinous soft tissue abnormality is identified. IMPRESSION: No fracture or acute bony abnormality. No significant central canal stenosis. Reviewed, Interpreted and Dictated by Shoaib Solomon III, MD Transcribed by Josefina Marroquin Authenticated and . [facility]
--- NOTE | 2024-03-10 13:34 | CT_ITS ---
FINAL REPORT TECHNIQUE: Axial images were obtained from the lung apex to the mid abdomen by computed tomography. Coronal reformatted images were obtained. This study was performed with techniques to keep radiation doses as low as reasonably achievable, (ALARA). Individualized dose reduction techniques using automated exposure control or adjustment of mA and/or kV according to the patient''s size were employed. CLINICAL HISTORY: fall, pain COMPARISON: None FINDINGS: No mediastinal mass or adenopathy is identified. No axillary mass or adenopathy is seen. Coronary artery stents are present. There is no pericardial or pleural effusion. No pulmonary mass or suspicious nodule is identified. No localized pulmonary inflammatory process is noted. The chest wall is intact.Limited images of the upper abdomen are unremarkable. IMPRESSION: No acute process. Reviewed, Interpreted and Dictated by Shoaib Solomon III, MD Transcribed by Josefina Marroquin Authenticated and [facility][1]
--- OUTSIDE RECORDS SUMMARY | 2024-03-10 13:36 | XMS_ITS | Patient Health Record ---
Author Organization [facility] Address [address] [place], [place] [address] Care Team Providers Care Internship Coordinator Name Role Phone Tej Hebert Primary Care Provider [phone] Tej Hebert Unavailable Unavailable ALLERGIES No Known Allergies RESULTS Component Value Reference Range Notes LIPID PANEL, STANDARD (7600) Reviewed date:03/05/2024 09:38:58 AM Interpretation: Performing Lab:CB, [facility] [address], [facility] CenterGeumUY[address] Maximo Richter Notes/Report: NON-FASTING; NON-FASTING; NON-FASTING FASTING:YES FASTING: YES CHOLESTEROL, TOTAL 156 <200 mg/dL HDL CHOLESTEROL 47 > OR = 40 mg/dL TRIGLYCERIDES 193 <150 mg/dL LDL-CHOLESTEROL 80 Reference range: <100 Desirable range <100 mg/dL for primary prevention; <70 mg/dL for patients with CHD or diabetic patients with > or = 2 CHD risk factors. LDL-C is now calculated using the Fay calculation, which is a validated novel method providing better accuracy than the Friedewald equation in the estimation of LDL-C. Tom ESTES et al. PHONG. 2013;310(19): 2179-3885 (http://education.Measureful.com/faq/JIA913) CHOL/HDLC RATIO 3.3 <5.0 (calc) NON HDL CHOLESTEROL 109 <130 mg/dL (calc) For patients with diabetes plus 1 major ASCVD risk factor, treating to a non-HDL-C goal of <100 mg/dL (LDL-C of <70 mg/dL) is considered a therapeutic option. LIPID PANEL, STANDARD (7600) Reviewed date:05/10/2023 02:57:04 PM Interpretation: Performing Lab:SHREYAS [facility]ere1355 [facility]Yug[facility], [facility] CenterAqyxNZ[address] Maximo Richter Notes/Report: NON-FASTING; NON-FASTING; NON-FASTING; NON-FASTING; NON-FAST FASTING:NO FASTING: NO CHOLESTEROL, TOTAL 194 <200 mg/dL HDL CHOLESTEROL 49 > OR = 40 mg/dL TRIGLYCERIDES 128 <150 mg/dL LDL-CHOLESTEROL 121 Reference range: <100 Desirable range <100 mg/dL for primary prevention; <70 mg/dL for patients with CHD or diabetic patients with > or = 2 CHD risk factors. LDL-C is now calculated using the Tom-Florencia calculation, which is a validated novel method providing better accuracy than the Friedewald equation in the estimation of LDL-C. Tom SS et al. PHONG. 2013;310(15): 7557-8171 (http://education.Measureful.Nexgence/faq/KIP826) CHOL/HDLC RATIO 4.0 <5.0 (calc) NON HDL CHOLESTEROL 145 <130 mg/dL (calc) For patients with diabetes plus 1 major ASCVD risk factor, treating to a non-HDL-C goal of <100 mg/dL (LDL-C of <70 mg/dL) is considered a therapeutic option. COMPREHENSIVE METABOLIC PANE (83674) Reviewed date:05/10/2023 02:57:04 PM Interpretation: Performing Lab:SHREYAS [facility] [id number] ComputerteSummit O[facility], [facility] CenterXzifRB[address] Maximo Richter Notes/Report: NON-FASTING; NON-FASTING; NON-FASTING; NON-FASTING; NON-FAST FASTING:NO FASTING: NO GLUCOSE 106 65-139 mg/dL Non-fasting reference interval UREA NITROGEN (BUN) 16 7-25 mg/dL CREATININE 1.03 0.70-1.30 mg/dL EGFR 86 > OR = 60 mL/min/1.73m2 BUN/CREATININE RATIO SEE NOTE: 6-22 (calc) Not Reported: BUN and Creatinine are within reference range. SODIUM 139 135-146 mmol/L POTASSIUM 4.8 3.5-5.3 mmol/L CHLORIDE 105 98-110 mmol/L CARBON DIOXIDE 28 20-32 mmol/L CALCIUM 9.7 8.6-10.3 mg/dL PROTEIN, TOTAL 7.5 6.1-8.1 g/dL ALBUMIN 4.3 3.6-5.1 g/dL GLOBULIN 3.2 1.9-3.7 g/dL (calc) ALBUMIN/GLOBULIN RATIO 1.3 1.0-2.5 (calc) BILIRUBIN, TOTAL 0.6 0.2-1.2 mg/dL ALKALINE PHOSPHATASE 77 35-144 U/L AST 17 10-35 U/L ALT 21 9-46 U/L COMPREHENSIVE METABOLIC PANE L ([id number]) Reviewed date:03/05/2024 09:38:58 AM Interpretation: Performing Lab:SHREYAS NerdiesBlanchard Fwgk4[address] [facility] Maximo Richter Notes/Report: NON-FASTING; NON-FASTING; NON-FASTING FASTING:YES FASTING: YES GLUCOSE 95 65-99 mg/dL Fasting reference interval UREA NITROGEN (BUN) 18 7-25 mg/dL CREATININE 1.03 0.70-1.30 mg/dL EGFR 85 > OR = 60 mL/min/1.73m2 BUN/CREATININE RATIO SEE NOTE: 6-22 (calc) Not Reported: BUN and Creatinine are within reference range. SODIUM 140 135-146 mmol/L POTASSIUM 5.0 3.5-5.3 mmol/L CHLORIDE 107 98-110 mmol/L CARBON DIOXIDE 22 20-32 mmol/L CALCIUM 9.5 8.6-10.3 mg/dL PROTEIN, TOTAL 7.0 6.1-8.1 g/dL ALBUMIN 4.0 3.6-5.1 g/dL GLOBULIN 3.0 1.9-3.7 g/dL (calc) ALBUMIN/GLOBULIN RATIO 1.3 1.0-2.5 (calc) BILIRUBIN, TOTAL 0.4 0.2-1.2 mg/dL ALKALINE PHOSPHATASE 67 35-144 U/L AST 16 10-35 U/L ALT 18 9-46 U/L PROTEIN, TOTAL W/CREAT, RAND OM URINE ([id number]) Reviewed date:05/10/2023 02:57:04 PM Interpretation: Performing Lab:SHREYAS [facility] [address], [facility] CenterThrgXO[address] Maximo Richter Notes/Report: NON-FASTING; NON-FASTING; NON-FASTING; NON-FASTING; NON-FAST FASTING:NO FASTING: NO CREATININE, RANDOM URINE 141 20-320 mg/dL PROTEIN/CREATININE RATIO 121 25-148 mg/g crea t PROTEIN/CREATININE RATIO 0.121 0.025-0 .148 mg/mg creat PROTEIN, TOTAL, RANDOM UR 17 5-25 mg/dL CBC (INCLUDES DIFF/PLT) ([id number]) Reviewed date:05/10/2023 02:57:04 PM Interpretation: Performing Lab:SHREYAS, Edu[facility]on-NewAere[address] [employer], [facility] CenterYwwpXX[address] Maximo Richter Notes/Report: NON-FASTING; NON-FASTING; NON-FASTING; NON-FASTING; NON-FAST FASTING:NO FASTING: NO WHITE BLOOD CELL COUNT 9.3 3.8-10.8 Thousand/ uL RED BLOOD CELL COUNT 6.12 4.20-5.80 Million/uL HEMOGLOBIN 18.1 13.2-17.1 g/dL HEMATOCRIT 55.7 38.5-50.0 % MCV 91.0 80.0-100.0 fL MCH 29.6 27.0-33.0 pg MCHC 32.5 32.0-36.0 g/dL RDW 14.0 11.0-15.0 % PLATELET COUNT 273 140-400 Thousand/uL MPV 9.1 7.5-12.5 fL ABSOLUTE NEUTROPHILS 5720 2115-9108 cells/uL ABSOLUTE LYMPHOCYTES 2446 850-3900 cells/uL ABSOLUTE MONOCYTES 735 200-950 cells/uL ABSOLUTE EOSINOPHILS 307 15-500 cells/uL ABSOLUTE BASOPHILS 93 0-200 cells/uL NEUTROPHILS 61.5 LYMPHOCYTES 26.3 MONOCYTES 7.9 EOSINOPHILS 3.3 BASOPHILS 1.0 URINALYSIS, COMPLETE ([id number]) Reviewed date:05/10/2023 02:57:04 PM Interpretation: Performing Lab:SHREYAS Educanon-NewAere[address] [employer], [facility] CenterIoleAD[address] Maximo Richter Notes/Report: NON-FASTING; NON-FASTING; NON-FASTING; NON-FASTING; NON-FAST FASTING:NO FASTING: NO COLOR YELLOW YELLOW APPEARANCE CLEAR CLEAR SPECIFIC GRAVITY 1.025 1.001-1.035 PH 6.0 5.0-8.0 GLUCOSE 3+ NEGATIVE BILIRUBIN NEGATIVE NEGATIVE KETONES NEGATIVE NEGATIVE OCCULT BLOOD NEGATIVE NEGATIVE PROTEIN NEGATIVE NEGATIVE NITRITE NEGATIVE NEGATIVE LEUKOCYTE ESTERASE NEGATIVE NEGATIVE WBC NONE SEEN < OR = 5 /HPF RBC NONE SEEN < OR = 2 /HPF SQUAMOUS EPITHELIAL CELLS 0-5 < OR = 5 /HPF BACTERIA NONE SEEN NONE SEEN /HPF HYALINE CAST NONE SEEN NONE SEEN /LPF NOTE This urine was analyzed for the presence of WBC, RBC, bacteria, casts, and other formed elements. Only those elements seen were reported. HEMOGLOBIN A1c (496) Reviewed date:05/10/2023 02:57:04 PM Interpretation: Performing Lab:SHREYAS Educanon-[address]ere[address] [employer], [employer] SolutionsVuayJF[address] Maximo Richter Notes/Report: NON-FASTING; NON-FASTING; NON-FASTING; NON-FASTING; NON-FAST FASTING:NO FASTING: NO HEMOGLOBIN A1c 5.4 <5.7 % of total Hgb For the purpose of screening for the presence of diabetes: <5.7% Consistent with the absence of diabetes 5.7-6.4% Consistent with increased risk for diabetes (prediabetes) > or =6.5% Consistent with diabetes This assay result is consistent with a decreased risk of diabetes. Currently, no consensus exists regarding use of hemoglobin A1c for diagnosis of diabetes in children. According to [place] Diabetes Association (ADA) guidelines, hemoglobin A1c <7.0% represents optimal control in non- diabetic patients. Different metrics may apply to specific patient populations. Standards of Medical Care in Diabetes(ADA). HEMOGLOBIN A1c (496) Reviewed date:09/14/2023 10:53:39 AM Interpretation: Performing Lab:SHREYAS [facility]on-[employer] [address], MatrixVisionNdfnSM[address] Maximo Richter Notes/Report: HEMOGLOBIN A1c 5.6 <5.7 % of total Hgb For the purpose of screening for the presence of diabetes: <5.7% Consistent with the absence of diabetes 5.7-6.4% Consistent with increased risk for diabetes (prediabetes) > or =6.5% Consistent with diabetes This assay result is consistent with a decreased risk of diabetes. Currently, no consensus exists regarding use of hemoglobin A1c for diagnosis of diabetes in children. According to [place] Diabetes Association (ADA) guidelines, hemoglobin A1c <7.0% represents optimal control in non- diabetic patients. Different metrics may apply to specific patient populations. Standards of Medical Care in Diabetes(ADA). HbA1c performed on Rod platform. HEMOGLOBIN A1c (496) Reviewed date:03/05/2024 09:38:58 AM Interpretation: Performing Lab:SHREYAS [facility]canon-Dwaine Montoyae13[address] [facility], Dwaine MontoyaDtwmBO[address] Maximo Richter Notes/Report: NON-FASTING; NON-FASTING; NON-FASTING FASTING:YES FASTING: YES HEMOGLOBIN A1c 6.0 <5.7 % of total Hgb For someone without known diabetes, a hemoglobin A1c value between 5.7% and 6.4% is consistent with prediabetes and should be confirmed with a follow-up test. For someone with known diabetes, a value <7% indicates that their diabetes is well controlled. A1c targets should be individualized based on duration of diabetes, age, comorbid conditions, and other considerations. This assay result is consistent with an increased risk of diabetes. Currently, no consensus exists regarding use of hemoglobin A1c for diagnosis of diabetes for children. This test was performed on the Robb mraimar c503 platform. Effective 10/10/23, a change in test platforms from the Rod Seed Core Operator to the Robb marimar c503 may have shifted HbA1c results compared to historical results. Based on laboratory validation testing conducted at [email or web address], the Robb platform relative to the Rod platform had an average increase in HbA1c value of < or = 0.3%. This difference is within accepted variability established by the National Glycohemoglobin Standardization Program. Note that not all individuals will have had a shift in their results and direct comparisons between historical and current results for testing conducted on different platforms is not recommended. REASON FOR REFERRAL Reason Dr. Garduno for 10 ye ar colonoscopy f.u Diagnosis 1 Healthcare [facility] ce (Z00.00) Referral Organization [facility] Referring Provider First Name Tej Referring Provider Last Name Anup Referring Provider Speciality Internal M edicine Referred Organization [facility] Referred Address [address] [place] [address], [place], [place],[address],[place] Referred Provider Specialty Gastroentero logy General Notes email sent to steven chatman with information Referral Priority Routine Referral Appointment Date 11/30/[address] Garduno- Quin Garduno [facility] Referral Organization [facility] Referring Provider First Name Tej Referring Provider Last Name Anup Referring Provider Speciality Internal M edicine Referral Priority Routine Referral Appointment Date 03/14/2024 MEDICATIONS Medication SIG (Take, Route, Frequency, Duration) Notes Start Date End Date Status Comfort EZ Pen Diamond 32G X 5, 100 ea - as directed once a day for 100 days Active One Touch Delica Lancet 33g 1 4 times a day for 25 days Active losartan 100 mg 1 tab(s) orally once a day for 30 days Active levothyroxine 200 mcg (0.2 mg) 1 tab(s) orally once a day for 30 day(s) Active clopidogrel 75 mg 1 tab(s) orally once a day for 30 day(s) Active Metoprolol Succinate ER 100 mg 1 tab(s) orally once a day for 30 day(s) Active nitroglycerin 0.4 mg 1 tab(s) sublingual ly every 5 mins prn Active aspirin 81 mg 1 tab(s) orally once a day for 30 day(s) Active indomethacin 50 mg 1 cap(s) orally 3 ti mes a day as needed for Gout pain for 14 day(s) 03/15/2022 Active One Touch Vereo test strips N/A 1 fingerstick 4 times a day for 25 days 09/19/2022 Active Soliqua 100/33 100 units-33 mcg/mL 15 -16units SC every am for 30 days Active Jardiance 25 mg TAKE ONE TABLET BY MOUTH EVERY DAY IN THE MORNING for 90 days Active Repatha Prefilled Syringe 140 mg/mL as directed subcutaneously every 2 weeks Active spironolactone 50 mg 1 tab(s) orally for 30 day(s) once a day Active Praluent Pen 150 mg/mL as directed subcutaneously every 2 weeks Active isosorbide mononitrate 60 mg 1 tab(s) orally once a day (in the morning) for 30 day(s) Active SOCIAL HISTORY Tobacco Use: Social History Observation Description Date Details (start date - stop date) Current Smoker NA - NA Sex Assigned At : Social History Observation Description Sex Assigned At Unknown Smoking: Question Answer Notes Are you a: current smoker How often do you smoke cigarettes? every day How many cigarettes a day do you smoke? 5 or les s How soon after you wake up d o you smoke your first cigarette? within 5 min Are you interested in quitting? Thinking about q uitting Additional Findings: Tobacco User Light cigarett e smoker ((1-9 cigs/day) PROBLEMS Problem Type ICD Code Onset Dates Problem Status W/U Status Risk SNOMED Code Notes Problem Type 2 diabetes mellitus with other circulatory complications (E11.59) Active confirmed 15989454723227054 Problem Mixed hyperlipidemia (E78.2) Active confirmed 407484351 Problem Atherosclerotic heart disease of [place] coronary artery without angina pectoris (I25.10) Active confirmed 329291984 Problem Personal history of nicotine dependence (Z87.891) Active confirmed 322379350 Problem Morbid obesity (E66.01) Active confirmed 743523323 Problem salvage determiner (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 of insulin (Z79.4) Active confirmed 886451168 Problem Arthritis, multiple joint involvement (M12.9) Active confirmed 62674708632588 Problem Arthritis involving multiple sites (M12.9) Active confirmed 95701352768036 Problem Gouty arthritis (M10.9) Active confirmed 05767413 Problem Seasonal allergic rhinitis due to pollen (J30.1) Active confirmed 45438947 Problem Primary hypertension (I10) Active confirmed 41445187 Problem Acquired lymphedema of lower extremity (I89.0) Active confirmed 704676890 VITAL SIGNS Heart Rate 76 /min 03/03/2024 Temperature 97.7 degrees Fahrenheit 03/03/2024 Blood pressure diastolic 70 mm Hg 03/03/2024 Height 5 ft 11 in in 03/03/2024 Blood pressure systolic 140 mm Hg 03/03/2024 Weight 381.2 lbs 03/03/2024 BMI 53.16 kg/m2 03/03/2024 Encounters Encounter Location Date Provider Diagnosis [facility] [address] [facility] [address] [place] [address] 01/21/2024 Tejyoshi Hebert [facility] [address] [facility] [address] [place] [address] 05/07/2023 Tej Bessuman Type 2 diabetes cecile itus with hyperglycemia, without long-term current use of insulin E11.65 ; Atherosclerosis of [place] coronary artery of [place] heart without angina pectoris I25.10 ; Mixed hyperlipidemia E78.2 and Seasonal allergic rhinitis due to pollen J30.1 [facility] [address] [facility] [address] [place], [place] [address] 09/12/2023 Tej Hebert Mixed hyperlipidemia E78.2 ; Primary hypertension I10 ; Type 2 diabetes mellitus with hyperglycemia, without long-term current use of insulin E11.65 and Healthcare maintenance Z00.00 [facility] [address] [place], [place] [address] 03/03/2024 Tej Hebert Type 2 diabetes cecile itus with other circulatory complications E11.59 ; Atherosclerotic heart disease of [place] coronary artery without angina pectoris I25.10 ; Mixed hyperlipidemia E78.2 and Recurrent umbilical hernia K42.9 ASSESSMENTS Encounter Date Diagnosis Assessment Notes Treatment Notes Treatment Clinical Notes 05/07/2023 Atherosclerosis of c[place] coronary artery of [place] heart without angina pectoris (ICD-10 - I25.10) Lipid panel will be drawn on patient today, as well as CMP and CBC, to monitor patient's kidney functioning, assess WBC count for the presence of a UTI and lipid levels. 05/07/2023 Type 2 diabetes mellitus with hyperglycemia, without long-term current use of insulin (ICD-10 - E11.65) Urinalysis will be collected form patient today to assess microalbuminuria, hematuria, and presence of glucose due to type II diabetes. Labs will be drawn to assess A1C. 09/12/2023 Mixed hyperlipidemia (ICD-10 - E78.2) - Controlled on repatha, lipid panel at next appointment 09/12/2023 Primary hypertension (ICD-10 - I10) COntrolled 100/66 today 03/03/2024 Type 2 diabetes mellitus with other circulatory complications (ICD-10 - E11.59) Patient continues to lose weight well. No changes in plan, check A1c today. Also check labs to monitor renal function and response to therapy for proteinuria and CHF prevention given his atherosclerotic heart disease we will also check lipids. Please note I will review all labs personally 03/03/2024 Atherosclerotic hear t disease of cadd[place] coronary artery without angina pectoris (ICD-10 - I25.10) 03/03/2024 Mixed hyperlipidemia (ICD-10 - E78.2) 09/12/2023 Type 2 diabetes mellitus with hyperglycemia, without long-term current use of insulin (ICD-10 - E11.65) Home reading slightly increased in the 120-140 range. Currently on selequa and jardiance Repeat A1c today 05/07/2023 Mixed hyperlipidemia (ICD-10 - E78.2) Lipid panel will be drawn today to assess cholesterol and triglyceride levels. 09/12/2023 Healthcare maintenance (ICD-10 - Z00.00) Due for cscope last 2013 with no polyps --Had diverticulitis. Will repeat endoscopy. Up-to-date with vaccines. Weight maintenance discussed. Good blood pressure control. Non-smoker 05/07/2023 Seasonal allergic rhinitis due to pollen (ICD-10 - J30.1) A refill of montelukast sodium will be sent to patient's pharmacy. 03/03/2024 Recurrent umbilical hernia (ICD-10 - K42.9) Patient has proactively gotten an appoint with surgery.Encourage this. Encouraged weight belt/attempting to reduce stress on the umbilical hernia PLAN OF TREATMENT Pending Test Test Name Order Date Physical Therapy : Lymphedema 01/09/2022 M-Complete Blood Count Auto Diff 023 M-Comprehensive Metabolic Panel 08/30/19 23 M-Hemoglobin A1C 08/30/2022 M-Uric Acid 08/30/2022 M-Lipid Panel 08/30/2022 M-Thyroid Stimulating Hormone 08/30/2022 CT Scan : Chest, Lung Cancer Screening 0 08/30/2022 Uric Acid 05/17/2022 Next Appt Details Provider Name:Tej Dawson Andreisuman, 07/09/2024 10:00:00 AM, [address], [place], [address], Insurance Providers Payer Name Payer Address Payer Phone Subscriber Number Group Number Insured Name Patient Relationship to Insured Coverage Start Date Coverage End Date [facility] [address] [place] [id number] Maximo Vargas Self - patient is the insured MEDICATIONS ADMINISTERED Medication Instructions Date of Administration Dosage Notes Dexamethasone 4mg Injection 01/03/2023 4 mg MEDICAL (GENERAL) HISTORY Medical History History ICD Code Heart Attack HTN Hyperlipidemia Umbilical Hernia Surgical History Surgery Date(Month/Year) 2 cardiac stents 2016 1 cardiac stent 2018 left rotator cuff repair 10/2021 Colonoscopy s/p diverticulitis, negative for polys 2014 lt shoulder surgery 2021 Hospitalization History Reason Date(Month/Year) lt shoulder surgery 2021 2 cardiac stents 2016
--- OUTSIDE RECORDS SUMMARY | 2024-03-10 13:36 | XMS_ITS ---
Author Organization [facility] Address [address] [place], [place] [address] Care Team Providers Care Oracle Obiee Developer Name Role Phone Tej Hebert Primary Care Provider Tej Hebert Unavailable Unavailable ALLERGIES No Known Allergies RESULTS Component Value Reference Range Notes LIPID PANEL, STANDARD (7600) Reviewed date:03/05/2024 09:38:58 AM Interpretation: Performing Lab:CB, [facility] [id number] [facility] CenterEsbsZQ[address] Maximo Richter Notes/Report: NON-FASTING; NON-FASTING; NON-FASTING FASTING:YES [...] of LDL-C. Tom SS et al. PHONG. 2013;310(19): 1324-7600 (http://education.Lytro.ZenDoc/faq/[email or web address]) CHOL/HDLC RATIO 3.3 <5.0 (calc) NON HDL CHOLESTEROL 109 <130 mg/dL (calc) For patients with diabetes plus 1 major ASCVD risk factor, treating to a non-HDL-C goal of <100 mg/dL (LDL-C of <70 mg/dL) is considered a therapeutic option. COMPREHENSIVE METABOLIC PANBeata Medina (98658) Reviewed date:03/05/2024 09:38:58 AM Interpretation: Performing Lab:[facility] [id number], [place] [id number] Maximo Richter Notes/Report: NON-FASTING; NON-FASTING; NON-FASTING FASTING:YES [...] 16 10-35 U/L ALT 18 9-46 U/L HEMOGLOBIN A1c (496) Reviewed date:03/05/2024 09:38:58 AM Interpretation: Performing Lab:[facility] [id number] [facility], [facility] HospitalEsqfRD[address] Maximo Richter Notes/Report: NON-FASTING; NON-FASTING; NON-FASTING FASTING:YES [...] This test was performed on the Robb marimar c503 platform. Effective 10/10/23, a change in test platforms from the [employer] to the Robb marimar c503 may have shifted HbA1c results compared to historical results. Based on laboratory validation testing conducted at [facility], the Robb platform relative to the Rod [...] different platforms is not recommended. REASON FOR VISIT Patient here today to evaluate an umbilical hernia. Patient states he had surgery around 5281-6265.He states it was about golf ball size yesterday. MEDICATIONS Medication SIG (Take, Route, Frequency, Duration) Notes Start Date End Date Status One Touch Vereo test strips N/A 1 fingerstick 4 times a day for 25 days 09/19/2022 Active Soliqua 100/33 100 units-33 mcg/mL 15 -16units SC every am for 30 days Active Jardiance 25 mg TAKE ONE TABLET BY MOUTH EVERY DAY IN THE MORNING for 90 days Active Comfort EZ Pen [place] 32G X 5, 100 ea - as directed once a day for 100 days Active One Touch Delica Lancet 33g 1 4 times a day for 25 days Active clopidogrel 75 mg 1 tab(s) orally [...] Gout pain for 14 day(s) 03/15/2022 Active levothyroxine 200 mcg (0.2 mg) 1 tab(s) orally once a day for 30 day(s) Active Repatha Prefilled Syringe 140 mg/mL as directed subcutaneously every 2 weeks Active spironolactone 50 mg 1 tab(s) orally for 30 day(s) once a day Active Praluent Pen 150 mg/mL as directed subcutaneously every 2 weeks Active isosorbide mononitrate 60 mg 1 tab(s) orally once a day (in the morning) for 30 day(s) Active losartan 100 mg 1 tab(s) orally once a day for 30 days Active PROBLEMS Problem Type ICD Code Onset Dates Problem Status W/U Status Risk SNOMED Code Notes Problem Type 2 diabetes mellitus with other circulatory complications (E11.59) Active confirmed [id number] Problem 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 [address] [facility] [address] [place] [address] 03/03/2024 Tej Hebert Type 2 diabetes cecile itus with other circulatory complications E11.59 ; Atherosclerotic heart disease of morongo coronary artery without angina pectoris I25.10 ; Mixed hyperlipidemia E78.2 and Recurrent umbilical hernia K42.9 ASSESSMENTS Encounter Date Diagnosis Assessment Notes Treatment Notes Treatment Clinical Notes 03/03/2024 Type 2 diabetes mellitus with other [...] personally 03/03/2024 Atherosclerotic hear t disease of morongo coronary artery without angina pectoris (ICD-10 - I25.10) 03/03/2024 Mixed hyperlipidemia (ICD-10 - E78.2) 03/03/2024 Recurrent umbilical hernia (ICD-10 - K42.9) Patient has proactively gotten an appoint with surgery.Encourage this. Encouraged weight belt/attempting to reduce stress on the umbilical hernia PLAN OF TREATMENT Treatment Notes Assessment Notes Type 2 diabetes mellitus wit h other circulatory complications Patient continues to lose weight well. No changes in plan, check A1c today. Also check labs to monitor renal function and response to therapy for proteinuria and CHF prevention given his atherosclerotic heart disease we will also check lipids. Please note I will review all labs personally Recurrent umbilical hernia Patient has p jes gotten an appoint with surgery.Encourage this. Encouraged weight belt/attempting to reduce stress on the umbilical hernia Next Appt Details Follow Up: 4 Months, Reason: Provider Name:Tej Hebert, 07/09/2024 10:00:00 AM, [address], [address], [place], [address], Progress Notes * JENNIFER MaximoDOB: 8 (58 yo M)Acc No.[id number]:03/03/2024 Progress Notes Patient:??JENNIFERJessyMaximo Provider:??Tej Hebert MD :1965?Age:58 Y?Sex:Ma le Date:03/03/2024 Address:[address] [place] [address], [id number] Subjective: * Chief Complaints: * ?1. Patient here today to evaluate an umbilical hernia. Patient states he had surgery around 0782-2929. He states it was about golf ball size yesterday.. * HPI: ?gen:? Patient is here in follow-up of a possible umbilical hernia. He had surgery in 2004 for similar problem and thinks that it might have returned, he had a golf ball swelling yesterday, pushed on it quite a bit and now it is smaller. Still has residual pain. ?Denies vomiting, coughing or changes in bowel or bladder habits. ?Also needs labs, missed his last appointment for his follow-up diabetes labs. ?Continues to lose weight slowly but steadily. * Medical History:??Heart Ray ck, HTN, Hyperlipidemia, Umbilical Hernia. * Medications:??Taking Repatha Prefilled Syringe 140 mg/mL solution as directed subcutaneously every 2 weeks , Taking spironolactone 50 mg tablet 1 tab(s) orally , Notes to Pharmacist: once a day, Taking Praluent Pen 150 mg/mL solution as directed subcutaneously every 2 weeks , Taking isosorbide mononitrate 60 mg tablet, extended release 1 tab(s) orally once a day (in the morning) , Taking clopidogrel 75 mg tablet 1 tab(s) orally once a day , Taking Metoprolol Succinate ER 100 mg tablet, extended release 1 tab(s) orally once a day , Taking nitroglycerin 0.4 mg tablet 1 tab(s) sublingually every 5 mins prn , Taking aspirin 81 mg delayed release tablet 1 tab(s) orally once a day , Taking indomethacin 50 mg capsule 1 cap(s) orally 3 times a day as needed for Gout pain , Taking One Touch Vereo test strips N/A N/A 1 fingerstick 4 times a day , Taking Soliqua 100/33 100 units-33 mcg/mL solution 15 -16units SC every am , Taking Jardiance 25 mg tablet TAKE ONE TABLET BY MOUTH EVERY DAY IN THE MORNING , Taking Comfort EZ Pen [place] 32G X 5, 100 ea - as directed once a day , Taking One Touch Delica Lancet 33g 1 4 times a day , Taking losartan 100 mg tablet 1 tab(s) orally once a day , Taking levothyroxine 200 mcg (0.2 mg) tablet 1 tab(s) orally once a day , Medication List reviewed and reconciled with the patient * Allergies:??N.K.D.A. Objective: * Vitals:??Nurse: bailey, Pain: 0, Temp: 97.7, RR: 20, HR: 76, BP: 140/70, Ht: 5 ft 11 in, Wt: 381.2, BMI:53.16. * Examination: ?General Examination: ?Lungs clear, heart rate regular, abdomen is soft, does have a palpable umbilical hernia on the right side of the umbilicus its about the size of a golf ball, is reducible with some discomfort. No redness, no deformity of the rest of his abdomen. ?Trace lymphedema as previously noted but overall improving. Assessment: * Assessment: 1.??Type 2 diabetes mellitus with other circulatory complications - E11.59 (Primary)??2.??Atherosclerotic heart disease of morongo coronary artery without angina pectoris - I25.10??3.??Mixed hyperlipidemia - E78.2??4.??Recurrent umbilical hernia - K42.9?? Plan: * Treatment: 2.??Atherosclerotic heart di sease of morongo coronary artery without angina pectoris?LAB: LIPID PANEL, STANDARD (7600) ?LAB: COMPREHENSIVE METABOLIC PANEL (19156) ?LAB: HEMOGLOBIN A1c (496) 3.??Mixed hyperlipidemia?LAB: LIPID PANEL, STANDARD (7600) ?LAB: COMPREHENSIVE METABOLIC PANEL (13868) ?LAB: HEMOGLOBIN A1c (496) 4.??Recurrent umbilical jenelle ia?? Notes: Patient has proactively gotten an appoint with surgery.Encourage this. Encouraged weight belt/attempting to reduce stress on the umbilical hernia? * Follow Up:??4 Months * * Sign off status: Completed true * Provider:??Tej Hebert MD Augusto e:??03/03/2024
--- OUTSIDE RECORDS SUMMARY | 2024-03-10 13:36 | XMS_ITS ---
Author Organization [facility] Address [address] [facility] [address] [place] [address] Care Team Providers Care Manager Purchasing Name Role Phone Tej Hebert Primary Care Provider Tej Hebert Unavailable Unavailable REASON FOR VISIT 4 month check up Encounters Encounter Location Date Provider Diagnosis [facility] [address] [place] [address] 01/21/2024 Tej Hebert PLAN OF TREATMENT Next Appt Details Provider Name:Tej Hebert, 07/09/2024 10:00:00 AM, [address] [facility], [address], [place], [address], Progress Notes * Maximo RODRIGUEZDOB: [birth year] (58 yo M)Acc No.[id number]:01/21/2024 Progress Notes Patient:??Maximo RODRIGUEZ Provider:??Tej Hebert MD :1965?Age:58 Y?Sex:Ma le Date:01/21/2024 Address:[address], [place] Subjective: * Chief Complaints: * ?1. 4 month check up. * Medical History:?? Objective: Assessment: Plan: * Treatment: * * Sign off status: Pending * Provider:??Tej Hebert MD Augusto e:??01/21/2024
--- OUTSIDE RECORDS SUMMARY | 2024-03-10 13:36 | XMS_ITS ---
Author Organization [facility] Address [address] [place] [address] Care Team Providers Care Receptionist Scheduler Name Role Phone Tej Hebert Primary Care Provider Tej Hebert Unavailable Unavailable ALLERGIES No Known Allergies RESULTS Component Value Reference Range Notes HEMOGLOBIN A1c (496) Reviewed date:09/14/2023 10:53:39 AM Interpretation: Performing Lab:CB, [facility] [id number], [place] Maximo Richter Notes/Report: HEMOGLOBIN A1c 5.6 <5.7 [...] diagnosis of diabetes in children. According to [place] Diabetes Association (ADA) guidelines, hemoglobin A1c <7.0% represents optimal control in non- diabetic patients. Different metrics may apply to specific patient populations. Standards of Medical Care in Diabetes(ADA). HbA1c performed on [employer] platform. REASON FOR REFERRAL Reason Dr. Garduno for 10 ye ar colonoscopy f.u Diagnosis [facility] ce (Z00.00) Referral Organization [facility] Referring Provider First Name Tej Referring Provider Last Name Anup Referring Provider Speciality Internal M edicine Referred Organization [facility] Referred Address [address] [facility] [address] [facility], [place],[address],[place] Referred Provider Specialty Gastroentero andrew General Notes email sent to steven chatman with information Referral Priority Routine Referral Appointment Date 11/30/2023 REASON FOR VISIT 4 month check up MEDICATIONS Medication SIG (Take, Route, Frequency, Duration) Notes Start Date End Date Status indomethacin 50 mg 1 cap(s) orally 3 ti mes a day as needed for Gout pain for 14 day(s) 03/15/2022 Active One Touch Vereo test strips N/A 1 fingerstick 4 times a day for 25 days 09/19/2022 Active One Touch Delica Lancet 33g 1 4 times a day for 25 days 09/19/2022 Active Comfort EZ Pen [place] 32G X 5, 100 ea - as directed once a day for 100 days 09/19/2022 Active Metoprolol Succinate ER 100 mg 1 tab(s) orally once a day for 30 day(s) Active nitroglycerin 0.4 mg 1 tab(s) sublingual ly every 5 mins prn Active aspirin 81 mg 1 tab(s) orally once a day for 30 day(s) Active isosorbide mononitrate 60 mg 1 tab(s) orally once a day (in the morning) for 30 day(s) Active clopidogrel 75 mg 1 tab(s) orally once a day for 30 day(s) Active Jardiance 25 mg TAKE ONE TABLET BY MOUTH EVERY DAY IN THE MORNING for 90 days Active levothyroxine 200 mcg (0.2 mg) 1 tab(s) orally once a day for 30 day(s) Active spironolactone 50 mg 1 tab(s) orally for 30 day(s) once a day Active Praluent Pen 150 mg/mL as directed subcutaneously every 2 weeks Active Repatha Prefilled Syringe 140 mg/mL as directed subcutaneously every 2 weeks Active Soliqua 100/33 100 units-33 mcg/mL 15 units SC every am for 30 days Active losartan 100 mg 1 tab(s) orally once a day for 30 days Active SOCIAL HISTORY Tobacco Use: Social History [...] User Light cigarett e smoker ((1-9 cigs/day) VITAL SIGNS Temperature 97.8 degrees Fahrenheit 09/12/19 24 Heart Rate 72 /min 09/12/2023 Blood pressure systolic 100 mm Hg 09/12/19 24 Blood pressure diastolic 66 mm Hg 024 Height 5 ft 11 in in 09/12/2023 Weight 389.0 lbs 09/12/2023 BMI 54.25 kg/m2 09/12/2023 Encounters Encounter Location Date Provider Diagnosis [facility] [address] [place], [place] [address] 09/12/2023 Tej Hebert Mixed hyperlipidemia E78.2 ; Primary hypertension I10 ; Type 2 diabetes mellitus with hyperglycemia, without long-term current use of insulin E11.65 and Healthcare maintenance Z00.00 ASSESSMENTS Encounter Date Diagnosis Assessment Notes Treatment Notes Treatment Clinical Notes 09/12/2023 Mixed hyperlipidemia (ICD-10 - E78.2) - Controlled on repatha, lipid panel at next appointment 09/12/2023 Primary hypertension (ICD-10 - I10) COntrolled 100/66 today 09/12/2023 Type 2 diabetes mellitus with hyperglycemia, without long-term current use of insulin (ICD-10 - E11.65) Home reading slightly increased in the 120-140 range. Currently on selequa and jardiance Repeat A1c today 09/12/2023 Healthcare maintenance (ICD-10 - Z00.00) Due for cscope last 2013 with no polyps --Had diverticulitis. Will repeat endoscopy. Up-to-date with vaccines. Weight maintenance discussed. Good blood pressure control. Non-smoker PLAN OF TREATMENT Treatment Notes Assessment Notes Mixed hyperlipidemia - Controlled on rep atha, lipid panel at next appointment Primary hypertension COntrolled 100/66 t minh Type 2 diabetes mellitus wit h hyperglycemia, without long-term current use of insulin Home reading slightly increased in the 120-140 range. Currently on selequa and jardiance Repeat A1c today Healthcare maintenance Due for cscope last 2013 with no polyps --Had diverticulitis. Will repeat endoscopy. Up-to-date with vaccines. Weight maintenance discussed. Good blood pressure control. Non-smoker Referrals Referral Date Details 11/30/2023 11/30/2023, Dr. Sandra weaver for 10 year colonoscopy f.u , [address], [place], [address], Next Appt Details Follow Up: prn, Reason: Provider Name:Tej Hebert, 07/09/2024 10:00:00 AM, [address] [facility], [address], [place], [address], Progress Notes * Maximo RODRIGUEZDOB: [birth year] (57 yo M)Acc No.[id number]:09/12/2023 Progress Notes Patient:??Maximo RODRIGUEZ Provider:??Tej Hebert MD :1965?Age:57 Y?Sex:Ma le Date:09/12/2023 Address:[address] [place], [place] [id number] Subjective: * Chief Complaints: * ?1. 4 month check up. * HPI: ?gen:? Patient presents today for a 4 month follow-up and prev care update ? 2. Diabetes: Patient denies polyuria, polydipsia, and polyphagia. Patient states that his at home glucose levels run around 120-140. ? 3. Allergies: well controlled ? 4. HTN: Patient endorses taking his BP medication. Patient denies lightheadedness, syncope, and headaches. ? 5. Weightloss: Gained weight through the holidays, will work on getting back on track. ?In regards to preventative care update please see review of systems and assessment/plan below. * Medical History:??Heart Ray ck, HTN, Hyperlipidemia. * Surgical History:??2 cardiac stents 2017, 1 cardiac stent 2019, left rotator cuff repair 10/2021, Colonoscopy s/p diverticulitis, negative for polys 2013, lt shoulder surgery 2021. * Hospitalization/Major Diagno stic Procedure:??2 cardiac stents 2016, lt shoulder surgery 2021. * Family History:??Father: ali ve.??Mother: alive.??Paternal Grand Father: .??Paternal Grand Mother: .??Maternal Grand Father: .??Maternal Grand Mother: alive.??Paternal uncle: alive.??Paternal aunt: alive, 2 .??Maternal uncle: alive.??Maternal aunt: .??Siblings: alive, sister-heart attack, diagnosed with Heart Disease.??Children: alive, oldest -cerebal palsy.??1 brother(s) , 1 sister(s) - healthy. 2 daughter(s) . .?? * Social History:??Smoking??Ar e you a:??current smoker,??How often do you smoke cigarettes???every day,??How many cigarettes a day do you smoke???5 or less,??How soon after you wake up do you smoke your first cigarette???within 5 min,??Are you interested in quitting???Thinking about quitting,??Additional Findings: Tobacco User??Light cigarette smoker ((1-9 cigs/day).??Recreational drug use: no. Exercise: yes. Home smoke detector use: yes. Caffeine: no. Living Will: No. Alcohol: socially, Type: , Frequency: ,Years: , Determination:. Sexually active: yes. Travel outside [place]: no. Occupation: Disabled. * Medications:??Taking Repatha Prefilled Syringe 140 mg/mL [...] fingerstick 4 times a day , Taking One Touch Delica Lancet 33g 1 4 times a day , Taking Comfort EZ Pen [place] 32G X 5, 100 ea - as directed once a day , Taking Soliqua 100/33 100 units-33 mcg/mL solution 15 units SC every am , Taking losartan 100 mg tablet 1 tab(s) orally once a day , Taking Jardiance 25 mg tablet TAKE ONE TABLET BY MOUTH EVERY DAY IN THE MORNING , Taking levothyroxine 200 mcg (0.2 mg) tablet 1 tab(s) orally once a day , Discontinued Cetirizine Hydrochloride 10 mg tablet 1 tab(s) orally once a day , Discontinued Montelukast Sodium 10 mg tablet 1 tab(s) orally once a day , Medication List reviewed and reconciled with the patient * Allergies:??N.K.D.A. Objective: * Vitals:??Nurse: bailey, Temp: 97 .8, RR: 20, HR: 72, BP: 100/66, Ht: 5 ft 11 in, Wt: 389.0, BMI:54.25. * Examination: ?General Examination: ?General??Pleasant and Cooperative, NAD on RA,.?Heart:??Regular Rate and Rhythm, no murmur, rubs or gallops.?HEENT:??pharynx and tonsils normal, TM's normal.?Lungs:??LCTAB, No wheezes, crackles or rhonchi, Good air movement,.?Abdomen:??Soft, NTND, BSNA, No organomegaly or peritoneal signs..?Skin:??without acute rashes.?Extremities:??normal ROM,, no clubbing, no edema,, no foot lesions,.?Psych??Normal Mood/Affect.? Assessment: * Assessment: 1.??Mixed hyperlipidemia - E 78.2 (Primary)??2.??Primary hypertension - I10??3.??Type 2 diabetes mellitus with hyperglycemia, without long-term current use of insulin - E11.65??4.??Healthcare maintenance - Z00.00?? Plan: * Treatment: 2.??Primary hypertension?? Notes: COntrolled 100/66 today? 3.??Type 2 diabetes mellitus with hyperglycemia, without long-term current use of insulin?LAB: HEMOGLOBIN A1c (496) Notes: Home reading slightly increased in the 120-140 range. Currently on selequa and jardiance Repeat A1c today? 4.??Healthcare maintenance?? Notes: Due for cscope last 2013 with no polyps --Had diverticulitis. Will repeat endoscopy. Up-to-date with vaccines. Weight maintenance discussed. Good blood pressure control. Non-smoker ? Referral To: ?Reason:Dr. Garduno for 10 year colonoscopy f.u * Follow Up:??prn * * Sign off status: Completed true * Provider:??Tej Hebert MD Augusto e:??09/12/2023 History and Physical Notes * Examination Category Sub-Category Detail Notes General Examination HEENT: pharynx and tonsils normal, TM's normal Heart: Regular Rate and Rhy thm, no murmur, rubs or gallops Lungs: LCTAB, No wheezes, c rackles or rhonchi, Good air movement, Abdomen: Soft, NTND, BSNA, No organomegaly or peritoneal signs. Extremities: normal ROM,, no club qasim, no edema,, no foot lesions, Skin: without acute rashes General Pleasant and Coopera tive, NAD on RA, Psych Normal Mood/Affect Consultation Request Notes Referral Date Referring Provider Referred Provider Not es 09/12/[address] Allran f or 10 year colonoscopy f.u
[2024-03-10] MEDS: LIDOCAINE 5% TRANSDERMAL PATCH 1 EACH TP (13:43)
[2024-03-10] MEDS: ACETAMINOPHEN 500MG TAB 1000 MG PO (13:43)
[2024-03-10] MEDS: ONDANSETRON 4MG/2ML VIAL 4 MG IV (13:43)
[2024-03-10] MEDS: MORPHINE 4MG/ML SYRINGE 4 MG IV (13:44)
[2024-03-10] MEDS: KETOROLAC 30MG/ML VIAL 15 MG IV (13:44)
[2024-03-10 14:01] LABS: Basophils # 0.1 K/mm3 (0-0.2); Basophils % 0.9 % (0.1-2.0); Eosinophils # 0.3 K/mm3 (0.0-0.4); Eosinophils % 3.1 % (0.1-12.0); Hematocrit 50.6 % (42.0-52.0); Hemoglobin 16.7 g/dL (14.1-18.0); Lymphocytes # 2.4 K/mm3 (0.7-4.5); Lymphocytes % 23.3 % (10-50); Mean Corpuscular HGB Conc 32.9 g/dL (31.8-35.4); Mean Corpuscular Hemoglobin 30.6 pg (27.0-31.2); Mean Platelet Volume 8.1 fl (7.4-10.4); Monocytes # 0.5 K/mm3 (0.1-1.0); Monocytes % 4.7 % (1.7-9.3); Platelet Count 259 K/mm3 (142-424); Red Blood Count 5.45 M/mm3 (4.60-6.20); Red Cell Distribution Width 14.7 % (11.5-17.5); White Blood Count 10.2 K/mm3 (4.8-10.8)
[2024-03-10 14:02] LABS: Activated Partial Thrombo Time 30.7 seconds (22.8-30.6); INR 0.99 (0.9-1.1); Prothrombin Time 11.1 seconds (10.1-12.5)
--- NOTE | 2024-03-10 14:06 | HMH.EDGENADL ---
Discharge Plan Disposition Patient Disposition: Home, Self-Care Prescriptions Prescriptions: New cyclobenzaprine 10 mg tablet 10 mg PO TID PRN (Reason: muscle spasm) 5 Days Qty: 15 0RF No Action aspirin 81 mg tablet,delayed release (DR/EC) 81 mg PO QDAY levothyroxine 200 mcg tablet 200 mcg PO QDAY nitroglycerin 0.4 mg tablet, sublingual 0.4 mg SUBLINGUAL Q5M PRN (Reason: chest pain) Qty: 30 0RF (DME) pen needle, diabetic [BD Ultra-Fine Morena Pen Needle] 32 gauge x 5/32 needle See Rx Instructions .ROUTE .MEDSUPPLY Qty: 50 Patient Comments: USE DIRECTED with injections Rx Instructions: As directed Soliqua 100/33 100 unit-33 mcg/mL insulin pen 15 unit SQ Patient Comments: INJECT UP TO 60 UNITS SUBCUTANEOUSLY EVERY DAY IN THE MORNING Jardiance 25 mg tablet 25 mg PO DAILY Patient Comments: TAKE ONE TABLET BY MOUTH EVERY DAY IN THE MORNING cyclobenzaprine 10 mg tablet 10 mg PO indomethacin 50 mg capsule 50 mg PO ONCE PRN Praluent Pen 150 mg/mL pen injector See Rx Instructions .ROUTE .COMPLEX Qty: 2 11RF Dose Instruction: INJECT THE CONTENTS OF 1 PEN SUBCUTANEOUSLY EVERY 2 WEEKS (INJECT INTO ABDOMEN, THIGH, OR UPPER ARM & ROTATE SITES) Rx Instructions: INJECT THE CONTENTS OF 1 PEN SUBCUTANEOUSLY EVERY 2 WEEKS (INJECT INTO ABDOMEN, THIGH, OR UPPER ARM & ROTATE SITES) losartan 100 mg tablet See Rx Instructions .ROUTE .COMPLEX 90 Days Qty: 90 1RF Dose Instruction: TAKE ONE TABLET BY MOUTH EVERY DAY Rx Instructions: TAKE ONE TABLET BY MOUTH EVERY DAY clopidogrel 75 mg tablet See Rx Instructions .ROUTE .COMPLEX Qty: 90 1RF Dose Instruction: TAKE ONE TABLET BY MOUTH EVERY DAY Rx Instructions: TAKE ONE TABLET BY MOUTH EVERY DAY spironolactone 50 mg tablet See Rx Instructions .ROUTE .COMPLEX Qty: 60 6RF Dose Instruction: TAKE ONE TABLET BY MOUTH TWICE DAILY NEEDED FOR EDEMA Rx Instructions: TAKE ONE TABLET BY MOUTH TWICE DAILY NEEDED FOR EDEMA isosorbide mononitrate 60 mg tablet extended release 24 hr See Rx Instructions .ROUTE .COMPLEX Qty: 90 3RF Dose Instruction: TAKE ONE TABLET BY MOUTH EVERY MORNING Rx Instructions: TAKE ONE TABLET BY MOUTH EVERY MORNING metoprolol succinate 100 mg tablet extended release 24 hr See Rx Instructions .ROUTE .COMPLEX Qty: 90 1RF Dose Instruction: TAKE ONE TABLET BY MOUTH EVERY DAY Rx Instructions: TAKE ONE TABLET BY MOUTH EVERY DAY Repatha SureClick 140 mg/mL pen injector See Rx Instructions .ROUTE .COMPLEX Qty: 2 11RF Dose Instruction: INJECT 140 MG SUBCUTANEOUSLY EVERY 2 WEEKS Rx Instructions: INJECT 140 MG SUBCUTANEOUSLY EVERY 2 WEEKS Referrals Follow up/Referrals: Tej Hebert MD [Primary Care Provider] - See instructions Activity Restrictions/Add. Instructions Additional Instructions/Restrictions: No evidence of an acute traumatic abnormality all your CAT scans were normal labs were unremarkable. Expect significant pain and discomfort with neck several days you may take Tylenol and the muscle relaxer that is been prescribed to you. Incidentally there was a lytic lesion that was found on the CT scan of your head and the frontal aspect of her skull. As discussed there were no lytic lesions elsewhere no other abnormalities to the rest of your skeleton likely an incidental finding that is on remarkable but we recommend a follow-up CT scan in 6 months to ensure stability. Clinical Impressions Clinical Impression: Fall, Back pain, Hypotension Print Language Print Language: Slovenian Discharge ED Provider: Candace Barreto General Adult HPI <Candace Barreto DO - Last Filed: 03/10/24 16:56> General Chief complaint: Fall Stated complaint: Lower/mid back pain Time Seen by Provider: 03/10/24 13:26 Mode of Arrival: Wheelchair Source of Information: Patient Limitations: No Limitations Description of Symptoms (Recalled from ER Triage Doc. by RN): pt to the ED via wheelchair with complaints of middle to lower back pain that radiated around to his left lower rib. pt reports he attempted to get out of a truck bed when his foot slipped off the tire and he fell onto the ground. pt reports he landed on his bottom more so on his left hip and denied any head/neck injury. pt reports PMS in both legs and denies any sensory deficits. pt reports increase in pain with movement History of Present Illness HPI narrative: This patient is a 58-year-old male with a history of type 2 diabetes, hypertension, hyperlipidemia, CAD, ALLIE, and obesity presenting to the emergency department for evaluation with concern for a fall. He was on the bed of a truck when he was trying to step off of it, and he fell backwards onto the ground from the truck bed. He states he mostly landed on his butt. He is ambulatory but he has significant low back pain with any attempted movement. No head injury, loss of consciousness, chest pain, shortness of breath, abdominal pain, numbness, tingling, or other concerns. He does take aspirin and Plavix. Related Data Home Medications ?Medication ?Instructions ?Recorded ?Confirmed aspirin 81 mg tablet,delayed 81 mg PO QDAY 08/08/17 02/22/23 release levothyroxine 200 mcg tablet 200 mcg PO QDAY 08/08/17 02/22/23 empagliflozin 25 mg tablet 25 mg PO DAILY 01/13/22 02/22/23 (Jardiance) insulin glargine 100 15 unit SQ 01/13/22 02/22/23 unit-lixisenatide 33 mcg/mL subcutaneous pen (Soliqua 100/33) pen needle, diabetic 32 gauge x #50 ea 01/13/22 02/22/23 (BD Ultra-Fine Morena Pen Needle) cyclobenzaprine 10 mg tablet 10 mg PO 04/25/22 02/22/23 indomethacin 50 mg capsule 50 mg PO ONCE PRN 08/04/22 02/22/23 Previous Rx's ?Medication ?Instructions ?Recorded nitroglycerin 0.4 mg sublingual 0.4 mg sublingual Q5M PRN chest 02/27/20 tablet pain #30 tabs alirocumab 150 mg/mL subcutaneous See Rx Instructions .Route 01/17/22 pen injector (Praluent Pen) .COMPLEX #2 mL losartan 100 mg tablet See Rx Instructions .Route 04/17/22 .COMPLEX 90 days #90 tabs clopidogrel 75 mg tablet See Rx Instructions .Route 01/09/23 .COMPLEX #90 tabs spironolactone 50 mg tablet See Rx Instructions .Route 05/03/23 .COMPLEX #60 tabs isosorbide mononitrate 60 mg See Rx Instructions .Route 11/15/23 tablet,extended release 24 hr .COMPLEX #90 tabs metoprolol succinate 100 mg See Rx Instructions .Route 01/08/24 tablet,extended release 24 hr .COMPLEX #90 tabs evolocumab 140 mg/mL subcutaneous See Rx Instructions .Route 01/11/24 pen injector (Repatha SureClick) .COMPLEX #2 mL cyclobenzaprine 10 mg tablet 10 mg PO TID PRN muscle spasm 5 03/10/24 days #15 tabs Allergies Allergy/AdvReac Type Severity Reaction Status Date / Time [id number] Reductase AdvReac Intermediate Verified 02/22/23 13:30 Inhibitor [Pqqwwam-Khe-Nnz Reductase Inhibitor] PFS <Candace Barreto DO - Last Filed: 03/10/24 16:56> [facility] Disclaimer: The information contained in this section may have been updated after the patient was seen, as this information can be updated by other users. Medical History Chest pain Diastolic congestive heart failure Hyperlipidemia ALLIE (obstructive sleep apnea) Edema NYHA class 2 and GRICELDA/AHA stage C chronic combined systolic and diastolic congestive heart failure CAD (coronary artery disease) Hypertension Surgical History Stented coronary artery Social History Smoking Status: Current every day smoker alcohol intake: never substance use type: denies use current occupational status: employed Travel in the last 8 weeks: Inside the [place] household members: spouse housing: house <Candace Barreto DO - Last Filed: 03/10/24 16:56> ROS Obtained: Yes All systems reviewed & no additional complaints except as documented Physical Exam <Candace Barreto DO - Last Filed: 03/10/24 16:56> General General appearance: alert and obese Comment: Uncomfortable appearing Head Head exam: atraumatic and normocephalic Eye Eye exam: Present normal appearance, PERRL and EOMI ENT ENT exam: Present normal exam, normal oropharynx, mucous membranes moist and normal external ear exam Neck Neck exam: Present normal inspection, full ROM and trachea midline; Absent tenderness Chest Chest inspection: Present normal inspection and symmetric chest wall rise; Absent tenderness Respiratory Respiratory exam: Present normal lung sounds bilaterally; Absent respiratory distress, wheezes, stridor or accessory muscle use Cardiovascular Cardiovascular exam: Present regular rate and normal rhythm Abdominal Exam Abdominal exam: Present soft; Absent distention, tenderness or guarding Extremities Exam Extremities exam: Present normal inspection, full ROM and normal capillary refill; Absent tenderness or edema Back Exam Back exam: Present tenderness (Lumbar spine) and vertebral tenderness (Lumbar spine) Neurological Exam Neurological exam: Present alert, oriented X3, CN II-XII intact and normal gait; Absent motor sensory deficit Psychiatric Psychiatric exam: Present normal affect and normal mood Skin Skin exam: Present warm and dry Medical Decision Making <Candace Barreto, DO - Last Filed: 03/10/24 16:56> Medical Records Medical records reviewed: Yes I reviewed the patient's medical records. Caleb Inquiry Pt receiving controlled substance: No Vital Signs: 03/10/24 13:05 03/10/24 13:10 03/10/24 13:30 Temperature 97.6 F Temperature Source Oral Pulse Rate 74 77 Pulse Rate [Left Radial] 77 Respiratory Rate 16 20 Blood Pressure 125/67 106/56 L Blood Pressure [Right Arm] 125/67 Blood Pressure Mean 72 Blood Pressure Mean [Right Arm] 86 Blood Pressure Source [Right Arm] Automatic Cuff Blood Pressure Position [Right Arm] Sitting 02 Sat by Pulse Oximetry 96 96 96 Oxygen Delivery Method Room Air Room Air Room Air 03/10/24 13:52 03/10/24 14:00 03/10/24 15:00 Temperature Temperature Source Pulse Rate 74 68 65 Pulse Rate [Left Radial] Respiratory Rate Blood Pressure 107/66 L 94/55 L 90/55 L Blood Pressure [Right Arm] Blood Pressure Mean 75 69 64 Blood Pressure Mean [Right Arm] Blood Pressure Source [Right Arm] Blood Pressure Position [Right Arm] 02 Sat by Pulse Oximetry 96 96 95 Oxygen Delivery Method Room Air Room Air Room Air 03/10/24 15:30 03/10/24 15:45 03/10/24 16:00 Temperature Temperature Source Pulse Rate 67 57 L 59 L Pulse Rate [Left Radial] Respiratory Rate Blood Pressure 98/54 L 90/43 L 94/55 L Blood Pressure [Right Arm] Blood Pressure Mean 66 67 64 Blood Pressure Mean [Right Arm] Blood Pressure Source [Right Arm] Blood Pressure Position [Right Arm] 02 Sat by Pulse Oximetry 97 95 96 Oxygen Delivery Method Room Air Room Air Room Air 03/10/24 16:30 03/10/24 17:00 03/10/24 17:30 Temperature Temperature Source Pulse Rate 60 58 L 60 Pulse Rate [Left Radial] Respiratory Rate 18 16 18 Blood Pressure 110/55 L 96/47 L 112/63 Blood Pressure [Right Arm] Blood Pressure Mean Blood Pressure Mean [Right Arm] Blood Pressure Source [Right Arm] Blood Pressure Position [Right Arm] 02 Sat by Pulse Oximetry 96 95 95 Oxygen Delivery Method Room Air Room Air Room Air Lab Data Lab results reviewed: Yes I reviewed the patient's lab results. Lab Results 03/10/24 13:45: WBC 10.2, RBC 5.45, Hgb 16.7, Hct 50.6, MCV 93.0, MCH 30.6, MCHC 32.9, RDW 14.7, Plt Count 259, MPV 8.1, Neut % (Auto) 68.0, Lymph % (Auto) 23.3, Williamson % (Auto) 4.7, Eos % (Auto) 3.1, Baso % (Auto) 0.9, Neut # (Auto) 7.0, Lymph # (Auto) 2.4, Williamson # (Auto) 0.5, Eos # (Auto) 0.3, Baso # (Auto) 0.1, PT 11.1, INR 0.99, APTT 30.7 H, Sodium 137, Potassium 4.4, Chloride 109 H, Carbon Dioxide 20 L, Anion Gap 12.4, BUN 24 H, Creatinine 1.10, Estimated Creat Clear 80, Estimated GFR 69, Est GFR ( Amer) 84, Glucose 99, Calcium 9.7, Total Bilirubin 0.8, AST 38, ALT 33, Alkaline Phosphatase 70, Total Protein 7.9, Albumin 4.4, Globulin 3.5 H, Albumin/Globulin Ratio 1.3 03/10/24 13:45 03/10/24 13:45 Orders (Tests/Meds): ED MEDICATIONS Discontinued Medications Generic Name Dose Route Start Last Admin Trade Name Freq PRN Reason Stop Dose Admin Acetaminophen 1,000 mg 03/10/24 13:33 03/10/24 13:43 Acetaminophen 500mg Tab PO 03/10/24 13:34 1,000 mg ONCE ONE Administration Lactated Ringer's 1,000 mls @ 999 mls/hr 03/10/24 15:39 03/10/24 15:48 Lactated Ringer's 1000 Ml Bag IV 03/10/24 16:39 999 mls/hr .Q1H1M ONE Administration Iopamidol 100 ml 03/10/24 16:21 03/10/24 16:22 Iopamidol-370 (76%);100ml Bottle IV 03/10/24 16:22 100 ml ONCE ONE Administration Ketorolac Tromethamine 15 mg 03/10/24 13:33 03/10/24 13:44 Ketorolac 30mg/Ml Vial IV 03/10/24 13:34 15 mg ONCE ONE Administration Lidocaine 1 each 03/10/24 13:33 03/10/24 13:43 Lidocaine 5% Transdermal Patch TP 03/10/24 13:34 1 each ONCE ONE Administration Morphine Sulfate 4 mg 03/10/24 13:33 03/10/24 13:44 Morphine 4mg/Ml Syringe IV 03/10/24 13:34 4 mg ONCE ONE Administration Ondansetron HCl 4 mg 03/10/24 13:33 03/10/24 13:43 Ondansetron 4mg/2ml Vial IV 03/10/24 13:34 4 mg ONCE ONE Administration Sodium Chloride 10 ml 03/10/24 16:21 03/10/24 16:22 Sodium Chloride 0.9% 10ml Syr (Rad Only) IV 03/10/24 16:22 10 ml ONCE ONE Administration Sodium Chloride 50 ml 03/10/24 16:21 03/10/24 16:22 0.9 % Sodium Chloride 50 Ml Vial IV 03/10/24 16:22 50 ml ONCE ONE Administration ORDERS Category Date Time Status CT angio abdomen pelvis Stat Cat Scan 03/10/24 15:[address] angio chest PE protocol Stat Cat Scan 03/10/24 15:[address] bony pelvis Stat Cat Scan 03/10/24 13:[address] cervical spine wo con Stat Cat Scan 03/10/24 13:[address] chest wo con Stat Cat Scan 03/10/24 13:[address] head/brain wo con Stat Cat Scan 03/10/24 13:[address] lumbar spine wo con Stat Cat Scan 03/10/24 13:[address] thoracic spine wo con Stat Cat Scan 03/10/24 13:33 Completed Complete Blood Count Auto Diff Stat Lab 03/10/24 13:45 Completed Comprehensive Metabolic Panel Stat Lab 03/10/24 13:45 Completed PT INR [Prothrombin Time INR] Stat Lab 03/10/24 13:45 Completed PTT [Activated Partial Thrombo Time] Stat Lab 03/10/24 13:45 Completed Medical Decision Narrative: In summary, this patient is a 58-year-old male presenting to the Emergency Department for evaluation of low back pain. Differential diagnoses considered include but are not limited to head trauma, neck trauma back trauma, spinal cord injury, polytrauma. Ruling out the most morbid conditions drove assessment. It should be noted patient's history includes CAD on aspirin and Plavix which may or may not be at goal therapy. This complicates all aspects of care by increasing patient's risk for morbidity. On exam, the patient is uncomfortable appearing. He is hemodynamically stable and neurologically intact with no alarm findings concerning for spinal cord compression or cauda equina syndrome. He was given IV Toradol, IV morphine, IV Zofran, topical Lidoderm patch, and oral Tylenol presented medic improvement of pain. Workup included CT head, CT spines without contrast, CT bony pelvis without contrast. No obvious acute traumatic injury noted on scans. Labs reassuring without acutely concerning abnormality. Patient got good pain control after interventions above, but on reassessment was hypotensive. Despite being hypotensive with systolics in the 70s even on manual pressure, patient had no new concerns or complaints. No chest pain, abdominal pain, or other concerns. No new numbness or tingling and he remains neurologically intact in his lower extremities and upper extremities. He has had no increase in heart rate, respiratory rate, or changes in vital signs otherwise. EKG was obtained and is reassuring. I independently interpreted at 1638 and noted sinus bradycardia with a ventricular rate of [address] changes concerning for ischemia. Given his hypotension in setting of trauma, CTAs of the chest, abdomen, and pelvis were added onto his workup. He was given a bolus of IV fluids. Patient care was handed out to the oncoming provider, Dr. Gore, pending this and reassessment. <Alanna Gore MD - Last Filed: 03/10/24 18:21> Vital Signs: 03/10/24 13:05 03/10/24 13:10 03/10/24 13:30 Temperature 97.6 F Temperature Source Oral Pulse Rate 74 77 Pulse Rate [Left Radial] 77 Respiratory Rate 16 20 Blood Pressure 125/67 106/56 L Blood Pressure [Right Arm] 125/67 Blood Pressure Mean 72 Blood Pressure Mean [Right Arm] 86 Blood Pressure Source [Right Arm] Automatic Cuff Blood Pressure Position [Right Arm] Sitting 02 Sat by Pulse Oximetry 96 96 96 Oxygen Delivery Method Room Air Room Air Room Air 03/10/24 13:52 03/10/24 14:00 03/10/24 15:00 Temperature Temperature Source Pulse Rate 74 68 65 Pulse Rate [Left Radial] Respiratory Rate Blood Pressure 107/66 L 94/55 L 90/55 L Blood Pressure [Right Arm] Blood Pressure Mean 75 69 64 Blood Pressure Mean [Right Arm] Blood Pressure Source [Right Arm] Blood Pressure Position [Right Arm] 02 Sat by Pulse Oximetry 96 96 95 Oxygen Delivery Method Room Air Room Air Room Air 03/10/24 15:30 03/10/24 15:45 03/10/24 16:00 Temperature Temperature Source Pulse Rate 67 57 L 59 L Pulse Rate [Left Radial] Respiratory Rate Blood Pressure 98/54 L 90/43 L 94/55 L Blood Pressure [Right Arm] Blood Pressure Mean 66 67 64 Blood Pressure Mean [Right Arm] Blood Pressure Source [Right Arm] Blood Pressure Position [Right Arm] 02 Sat by Pulse Oximetry 97 95 96 Oxygen Delivery Method Room Air Room Air Room Air 03/10/24 16:30 03/10/24 17:00 03/10/24 17:30 Temperature Temperature Source Pulse Rate 60 58 L 60 Pulse Rate [Left Radial] Respiratory Rate 18 16 18 Blood Pressure 110/55 L 96/47 L 112/63 Blood Pressure [Right Arm] Blood Pressure Mean Blood Pressure Mean [Right Arm] Blood Pressure Source [Right Arm] Blood Pressure Position [Right Arm] 02 Sat by Pulse Oximetry 96 95 95 Oxygen Delivery Method Room Air Room Air Room Air Lab Data Lab results reviewed: Yes I reviewed the patient's lab results. Lab Results 03/10/24 13:45: WBC 10.2, RBC 5.45, Hgb 16.7, Hct 50.6, MCV 93.0, MCH 30.6, MCHC 32.9, RDW 14.7, Plt Count 259, MPV 8.1, Neut % (Auto) 68.0, Lymph % (Auto) 23.3, Williamson % (Auto) 4.7, Eos % (Auto) 3.1, Baso % (Auto) 0.9, Neut # (Auto) 7.0, Lymph # (Auto) 2.4, Williamson # (Auto) 0.5, Eos # (Auto) 0.3, Baso # (Auto) 0.1, PT 11.1, INR 0.99, APTT 30.7 H, Sodium 137, Potassium 4.4, Chloride 109 H, Carbon Dioxide 20 L, Anion Gap 12.4, BUN 24 H, Creatinine 1.10, Estimated Creat Clear 80, Estimated GFR 69, Est GFR ( Amer) 84, Glucose 99, Calcium 9.7, Total Bilirubin 0.8, AST 38, ALT 33, Alkaline Phosphatase 70, Total Protein 7.9, Albumin 4.4, Globulin 3.5 H, Albumin/Globulin Ratio 1.3 Orders (Tests/Meds): ED MEDICATIONS Discontinued Medications Generic Name Dose Route Start Last Admin Trade Name Freq PRN Reason Stop Dose Admin Acetaminophen 1,000 mg 03/10/24 13:33 03/10/24 13:43 Acetaminophen 500mg Tab PO 03/10/24 13:34 1,000 mg ONCE ONE Administration Lactated Ringer's 1,000 mls @ 999 mls/hr 03/10/24 15:39 03/10/24 15:48 Lactated Ringer's 1000 Ml Bag IV 03/10/24 16:39 999 mls/hr .Q1H1M ONE Administration Iopamidol 100 ml 03/10/24 16:21 03/10/24 16:22 Iopamidol-370 (76%);100ml Bottle IV 03/10/24 16:22 100 ml ONCE ONE Administration Ketorolac Tromethamine 15 mg 03/10/24 13:33 03/10/24 13:44 Ketorolac 30mg/Ml Vial IV 03/10/24 13:34 15 mg ONCE ONE Administration Lidocaine 1 each 03/10/24 13:33 03/10/24 13:43 Lidocaine 5% Transdermal Patch TP 03/10/24 13:34 1 each ONCE ONE Administration Morphine Sulfate 4 mg 03/10/24 13:33 03/10/24 13:44 Morphine 4mg/Ml Syringe IV 03/10/24 13:34 4 mg ONCE ONE Administration Ondansetron HCl 4 mg 03/10/24 13:33 03/10/24 13:43 Ondansetron 4mg/2ml Vial IV 03/10/24 13:34 4 mg ONCE ONE Administration Sodium Chloride 10 ml 03/10/24 16:21 03/10/24 16:22 Sodium Chloride 0.9% 10ml Syr (Rad Only) IV 03/10/24 16:22 10 ml ONCE ONE Administration Sodium Chloride 50 ml 03/10/24 16:21 03/10/24 16:22 0.9 % Sodium Chloride 50 Ml Vial IV 03/10/24 16:22 50 ml ONCE ONE Administration ORDERS Category Date Time Status CT angio abdomen pelvis Stat Cat Scan 03/10/24 15:[address] angio chest PE protocol Stat Cat Scan 03/10/24 15:[address] bony pelvis Stat Cat Scan 03/10/24 13:[address] cervical spine wo con Stat Cat Scan 03/10/24 13:[address] chest wo con Stat Cat Scan 03/10/24 13:[address] head/brain wo con Stat Cat Scan 03/10/24 13:[address] lumbar spine wo con Stat Cat Scan 03/10/24 13:[address] thoracic spine wo con Stat Cat Scan 03/10/24 13:33 Completed Complete Blood Count Auto Diff Stat Lab 03/10/24 13:45 Completed Comprehensive Metabolic Panel Stat Lab 03/10/24 13:45 Completed PT INR [Prothrombin Time INR] Stat Lab 03/10/24 13:45 Completed PTT [Activated Partial Thrombo Time] Stat Lab 03/10/24 13:45 Completed Medical Decision Narrative: In summary, this patient is a 58-year-old male presenting to the Emergency Department for evaluation of low back pain. Differential diagnoses considered include but are not limited to head trauma, neck trauma back trauma, spinal cord injury, polytrauma. Ruling out the most morbid conditions drove assessment. It should be noted patient's history includes CAD on aspirin and Plavix which may or may not be at goal therapy. This complicates all aspects of care by increasing patient's risk for morbidity. On exam, the patient is uncomfortable appearing. He is hemodynamically stable and neurologically intact with no alarm findings concerning for spinal cord compression or cauda equina syndrome. He was given IV Toradol, IV morphine, IV Zofran, topical Lidoderm patch, and oral Tylenol presented medic improvement of pain. Workup included CT head, CT spines without contrast, CT bony pelvis without contrast. No obvious acute traumatic injury noted on scans. Labs reassuring without acutely concerning abnormality. Patient got good pain control after interventions above, but on reassessment was hypotensive. Despite being hypotensive with systolics in the 70s even on manual pressure, patient had no new concerns or complaints. No chest pain, abdominal pain, or other concerns. No new numbness or tingling and he remains neurologically intact in his lower extremities and upper extremities. He has had no increase in heart rate, respiratory rate, or changes in vital signs otherwise. EKG was obtained and is reassuring. I independently interpreted at 1638 and noted sinus bradycardia with a ventricular rate of [address] changes concerning for ischemia. Given his hypotension in setting of trauma, CTAs of the chest, abdomen, and pelvis were added onto his workup. He was given a bolus of IV fluids. Patient care was handed out to the oncoming provider, Dr. Gore, pending this and reassessment. This is Dr. Gore I took over from Dr. Barreto pending CT scans and reassessment of patient's blood pressure. Blood pressure has stabilized patient clinically does not have any signs or symptoms of any hypotension CT scans unremarkable on my evaluation of the radiology reads. However there is a incidental lytic lesion found in the frontal aspect of the skull I discussed this with the patient he is aware of this and will follow-up for a repeat CT scan in 6 months. Prescription for Flexeril was given to the patient patient was discharged in stable condition. Critical Care <Candace Barreto, DO - Last Filed: 03/10/24 16:56> Critical Care Time Critical Care Time: No
[2024-03-10 14:52] LABS: Albumin Level 4.4 g/dl (3.5-5.0); Chloride 109 mmol/L (98-107)
[2024-03-10 14:53] LABS: Potassium 4.4 mmoL/L (3.5-5.1); Sodium 137 mmol/L (136-145)
[2024-03-10 14:55] LABS: Alanine Aminotransferase 33 U/L (12-78); Anion Gap 12.4 mEq/L (5-15); Aspartate Amino Transferase 38 U/L (17-59); Blood Urea Nitrogen 24 mg/dl (9-20); Carbon Dioxide 20 mmol/L (22.0-30.0); Creatinine Clearance Estimated 80 mL/min (50-200); Estimated Glomerular Filt Rate 69 ml/min (>60); GFR (African American) 84 ML/MIN (>60)
[2024-03-10 14:56] LABS: Albumin/Globulin Ratio 1.3 (1.1-1.8); Alkaline Phosphatase 70 U/L (38-126); Bilirubin,Total 0.8 mg/dl (0.2-1.3); Calcium 9.7 mg/dl (8.4-10.2); Globulin 3.5 g/dL (1.3-3.2); Glucose 99 mg/dl (74-100); Total Protein,Serum 7.9 g/dl (6.3-8.2)
--- NOTE | 2024-03-10 15:45 | CT_ITS ---
PROCEDURE INFORMATION: Exam: CTA Chest With Contrast CTA Abdomen and Pelvis With Contrast Exam date and time: 03/10/2024 4:15 PM Age: 58 years old Clinical indication: Other: Fall, now hypotensive, back pain TECHNIQUE: Imaging protocol: Computed tomographic angiography of the chest with contrast. Exam focused on the arteries. Computed tomographic angiography of the abdomen and pelvis with contrast. Exam focused on the arteries. 3D rendering (Not supervised by radiologist): MIP and/or 3D reconstructed images were created by the technologist. Radiation optimization: All CT scans at this facility use at least one of these dose optimization techniques: automated exposure control; mA and/or kV adjustment per patient size (includes targeted exams where dose is matched to clinical indication); or iterative reconstruction. Contrast material: ISOVUE 370; Contrast volume: 100 ml; Contrast route: INTRAVENOUS (IV); COMPARISON: 1. CT BONY PELVIS 03/10/2024 2:[address] ABDOMEN PELVIS W CON 05/07/2021 6:[address] abdomen pelvis w con 12/20/2018 1:18 PM FINDINGS: VASCULATURE: Pulmonary arteries: Normal. No pulmonary emboli. Aorta: The aorta is normal caliber without focal abnormality. No dissection or aneurysm. There is atherosclerotic disease of the visualized aorta and its major branch vessels. Celiac trunk and mesenteric arteries: There is mild narrowing at the origin of the superior mesenteric artery with distal patency. Renal arteries: No occlusion or significant stenosis. Right iliac arteries: No occlusion or significant stenosis. Left iliac arteries: No occlusion or significant stenosis. CHEST: Lungs: Scattered areas of bronchial wall thickening which are likely chronic inflammatory. A few areas of subpleural reticulation are noted, nonspecific. Pleural spaces: Unremarkable. No pneumothorax. No pleural effusion. Heart: Trace pericardial fluid which is likely physiologic. Coronary arteries: There is moderate coronary atherosclerotic disease/calcification although evaluation is limited secondary to the non gated nature of the study. ABDOMEN AND PELVIS: Liver: No mass. Gallbladder and biliary ducts: The patient is status post cholecystectomy. Pancreas: There is fatty replacement of the pancreas. Spleen: Unremarkable. No splenomegaly. Adrenal glands: Unremarkable. No mass. Kidneys and ureters: There is nonspecific bilateral perinephric stranding. Stomach and bowel: Unremarkable. No obstruction. No mucosal thickening. Appendix: No evidence of appendicitis. Intraperitoneal space: Unremarkable. No free air. No significant fluid collection. Urinary bladder: Unremarkable. No mass. Reproductive: Unremarkable as visualized. Lymph nodes: There are calcified mediastinal lymph nodes likely reflecting prior granulomatous disease. Bones/joints: There is diffuse degenerative disease of the visualized osseous structures. Soft tissues: There is bilateral gynecomastia. IMPRESSION: 1. The aorta is normal caliber without focal abnormality. No dissection or aneurysm. 2. No acute traumatic injury is identified.
--- NOTE | 2024-03-10 15:47 | PC.NURSE ---
Manual BP 76/44 @ 1549
[2024-03-10] MEDS: LACTATED RINGERS 1000ML 1,000 ML 999 ML IV (15:48)
[2024-03-10] MEDS: 0.9 % SODIUM CHLORIDE 50 ML VIAL IV (16:22)
[2024-03-10] MEDS: SODIUM CHLORIDE 0.9% 10ML SYR (RAD ONLY) 10 ML IV (16:22)
[2024-03-10] MEDS: IOPAMIDOL-370 (76%);100ML BOTTLE 100 ML IV (16:22)
--- NOTE | 2024-03-10 16:34 | ECG_ITS ---
APPROVED REPORT Exam: Resting ECG HR:56 bpm ECG Measurements Heart Rate 56 AXES HI 175 P 66 QRSd 103 QRS 151 QT 415 T 41 QTc 408 Conclusion SINUS BRADYCARDIA INDETERMINATE AXIS LEFT POSTERIOR FASCICULAR BLOCK [QRS AXIS > 109, INFERIOR Q] ABNORMAL ECG UNCONFIRMED REPORT Electronically signed by : Mateus Gore, 03/10/2024 22:45:17
--- NOTE | 2024-03-10 18:13 | PC.NURSE ---
I rounded on the the pt, no new complaints at this time. pt is sitting up visiting with his . call curly in reach.
== END 2024-03-10 18:26 | disposition home or self-care (01) ==
PROVIDERS: Emergency Provider Emergency Medicine; PCP Internal Medicine Adolescent Medicine
DX: M54.59 Other low back pain (principal); M54.6 Pain in thoracic spine; I95.9 Hypotension, unspecified; R00.1 Bradycardia, unspecified; F17.210 Nicotine dependence, cigarettes, uncomplicated; I11.0 Hypertensive heart disease with heart failure; I25.10 Atherosclerotic heart disease of native coronary artery without angina pectoris; I50.30 Unspecified diastolic (congestive) heart failure; E78.5 Hyperlipidemia, unspecified; E11.9 Type 2 diabetes mellitus without complications; Z79.4 Long term (current) use of insulin; Z79.84 Long term (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 of oral hypoglycemic drugs; W17.89XA Other fall from one level to another, initial encounter
CPT/HCPCS: 70450; 71250; 71275; 72125; 72128; 72131; 72192; 74174; 80053; 85025; 85610; 85730; 93005; 96361; 96374; 96375; 99285; J1885; J2270; J2405; J7120; Q9967

== ENCOUNTER 2024-04-03 08:37 | Outpatient (CLI) | payer BC, SELFPAY ==
--- NOTE | 2024-04-03 10:37 | CA_ITS ---
APPROVED REPORT EXAM: Comprehensive 2D, Doppler, and color-flow Echocardiogram Manager Contact: Isabel Fields RT(R) Ht: 5 ft 11 in Wt: 385lbs BSA: 2.79 BP: 127/73 mmHg Indications: angina, HTN, smoker, hyperlipidemia, CHF, ALLIE, pre op, CAD, hx [place] 2D Dimensions IVSd 0.84 cm M: 0.6-1.2 LVEF (Visual) 61.30 % PWd 1.01 cm M: 0.6 - 1.2 LA Volume 55.80 mL LVDd 5.25 cm M: 4.2 - 5.9 LA Volume Index 20.00 mL/m2 (M/F) 16-34 LVDs 3.51 cm M: 2.5 - 4.0 EF AP4 49.00 % Left Atrium 3.91 cm M: 3.0 - 4.0 GL Strain -9.4 % M-Mode Dimensions RVDd 3.01 cm (0.9-2.6) LA Diam 4.22 cm (1.9-4.0) LVDd 5.64 cm (3.5-5.7) LVDs 3.48 cm (3.5-5.7) IVSd 0.98 cm (0.6-1.1) PWd 1.02 cm (0.6-1.1) EF (Teich) 63.90% EPSs 0.34 cm FS 35.10% EDV (Teich) 138.90 mL TAPSE 2.66 (<1.7) ESV (Teich) 50.20 mL LV Diastology E Decel Time 170 (160-240 msec) E/A Ratio 1.09 MED A' 14.40 cm/s LAT A' 10.40 cm/s Aortic Valve JUAN Index 0.98 cm2/m2 AoV Peak Hair. 146.0 (50-130 cm/s) AO Peak GR. 8.50 mmHg AO Mean GR. 4.30 (<5 mmHg) AO VTI 27.9 (18-25 cm) JUAN (VTI) 2.80 (2.5-4.5 cm2) Mitral Valve MV A Velocity 90.0 (40-130 cm/s) E/A Ratio 1.09 Pulmonary Valve PV Peak Velocity 98.0 (50-150 cm/s) Left Ventricle The left ventricle is normal size. The left ventricular systolic function is normal. The left ventricular ejection fraction is within the normal range. There is normal left ventricular wall thickness. There is normal LV segmental wall motion. The left ventricular diastolic function is normal. LVEF is 55%. Right Ventricle Right ventricle is mildly dilated. The right ventricular systolic function is normal. Atria The left atrium size is normal. The right atrium size is normal. There is no Doppler evidence of interatrial shunt. Aortic Valve The aortic valve is mildly thickened. There is no aortic valvular stenosis. Trace aortic regurgitation is present. Mitral Valve The mitral valve is normal in structure. No evidence of mitral valve stenosis. Trace mitral regurgitation. Tricuspid Valve The tricuspid valve leaflets are thin and pliable. Trace tricuspid regurgitation. There is insufficient TR jet to estimate RVSP. Pulmonic Valve The pulmonary valve is normal in structure. Trace pulmonic regurgitation. Great Vessels The aortic root is normal in size. The ascending aorta is not well-visualized. IVC is normal in size and collapses >50% with inspiration. Pericardium There is no pericardial effusion. Other Information Study Quality: Fair Conclusion Normal biventricular systolic function. Mild RV dilation. No significant valvular stenosis or regurgitation. Electronically signed by : Yolanda Portillo MD 04/09/2024 10:17:25
--- OUTSIDE RECORDS SUMMARY | 2024-04-08 11:57 | XMS_ITS ---
Author Organization [facility] Address [address] [place] [address] Care Team Providers Care Environmental Health Officer Name Role Phone Tej Hebert Primary Care Provider Tej Hebert Unavailable Unavailable Allergies No Known Allergies Results Component Value Reference Range Notes HEMOGLOBIN A1c (496) Reviewed date:09/14/2023 10:53:39 AM Interpretation: Performing Lab:CB, [facility] [address], [place] Maximo Richter Notes/Report: HEMOGLOBIN A1c 5.6 <5.7 [...] diagnosis of diabetes in children. According to [place] Diabetes Association (ADA) guidelines, hemoglobin A1c <7.0% represents optimal control in non- diabetic patients. Different metrics may apply to specific patient populations. Standards of Medical Care in Diabetes(ADA). HbA1c performed on Aisle50 platform. Reason For Referral Reason Dr. Garduno for 10 ye ar colonoscopy f.u Diagnosis 1 [facility] ce (Z00.00) Referral Organization [facility] Referring Provider First Name Tej Referring Provider Last Name Anup Referring Provider Speciality Internal M edicine Referred Organization [facility] Referred Address [address] [facility] [facility], [place],[address],[place] Referred Provider Specialty Gastroentero andrew General Notes email sent to steven chatman with information Referral Priority Routine Referral Appointment Date 11/30/2023 REASON FOR VISIT 4 month check up Medications Medication SIG (Take, Route, Frequency, Duration) Notes [...] 25 days 09/19/2022 Active Comfort EZ Pen [place] 32G X 5, 100 ea - as [...] once a day for 30 days Active Social History Tobacco Use: Social History Observation Description Date Details (start date - stop date) Current Smoker NA - NA Smoking: Question Answer Notes Are you a: [...] User Light cigarett e smoker ((1-9 cigs/day) Vital Signs Temperature 97.8 degrees Fahrenheit 09/12/19 24 Blood pressure systolic 100 mm Hg 09/12/19 24 Blood pressure diastolic 66 mm Hg 024 Heart Rate 72 /min 09/12/2023 Height 5 ft 11 in in 09/12/2023 Weight 389.0 lbs 09/12/2023 BMI 54.25 kg/m2 09/12/2023 Encounters Encounter Location Date Provider Diagnosis [facility] [address] [place], [place] [address] 09/12/2023 Tej Hebert Mixed hyperlipidemia E78.2 ; Primary hypertension I10 ; Type 2 diabetes mellitus with hyperglycemia, without long-term current use of insulin E11.65 and Healthcare maintenance Z00.00 Assessments Encounter Date Diagnosis (ICD Code) Assessment Notes Treat ment Notes Treatment Clinical Notes 09/12/2023 Mixed hyperlipidemia [...] maintenance discussed. Good blood pressure control. Non-smoker Plan Of Treatment Treatment Notes Assessment Notes Mixed hyperlipidemia - [...] pressure control. Non-smoker Referrals Referral Date Details 09/12/2023 09/12/2023, Dr. Sandra weaver for 10 year colonoscopy f.u , [address], [place], [address], Next Appt Details Follow Up: prn, Reason: Provider Name:Tej Samir Hebert, 07/09/2024 10:00:00 AM, [address], [address], [place], [address], Progress Notes * JENNIFERMaximo MarquezDOB: 8 (57 yo M)Acc No.[id number]:09/12/2023 Progress Notes Patient:?Maximo RODRIGUEZ Provider:?Tej Hebert MD :1965???Age:57 Y???Sex:Male Augusto e:09/12/2023 Address:[address] [place], [place] [id number] Subjective: * Chief Complaints: * ???1. 4 month check up. * HPI: ???gen:? Patient presents today for a 4 month [...] of systems and assessment/plan below. * Medical History:?Heart Attac k, HTN, Hyperlipidemia. * Surgical History:?2 cardiac stents 2016, 1 cardiac stent 2018, left rotator cuff repair 10/2021, Colonoscopy s/p diverticulitis, negative for polys 2013, lt shoulder surgery 2021. * Hospitalization/Major Diagno stic Procedure:?2 cardiac stents 2016, lt shoulder surgery 2021. * Family History:?Father: caridad baptiste.?Mother: alive.?Paternal Grand Father: .?Paternal Grand Mother: .?Maternal Grand Father: .?Maternal Grand Mother: alive.?Paternal uncle: alive.?Paternal aunt: alive, 2 .?Maternal uncle: alive.?Maternal aunt: .?Siblings: alive, sister-heart attack, diagnosed with Heart Disease.?Children: alive, oldest - cerebal palsy.?1 brother(s) , 1 sister(s) - healthy. 2 daughter(s) . .? * Social History:?Smoking?Are you a:?current smoker,?How often do you smoke cigarettes??every day,?How many cigarettes a day do you smoke??5 or less,?How soon after you wake up do you smoke your first cigarette??within 5 min,?Are you interested in quitting??Thinking about quitting,?Additional Findings: Tobacco User?Light cigarette smoker ((1-9 cigs/day).?Recreational drug use: no. Exercise: yes. Home smoke detector use: yes. Caffeine: no. Living Will: No. Alcohol: socially, Type: , Frequency: ,Years: , Determination:. Sexually active: yes. Travel outside [place]: no. Occupation: Disabled. * Medications:?Taking Repatha Prefilled Syringe 140 mg/mL solution as [...] a day , Taking Comfort EZ Pen [place] 32G X 5, 100 ea - as [...] reviewed and reconciled with the patient * Allergies:?N.K.D.A. Objective: * Vitals:?Nurse: bailey, Temp: 97. 8, RR: 20, HR: 72, BP: 100/66, Ht: 5 ft 11 in, Wt: 389.0, BMI:54.25. * Examination: ???General Examination: ?General?Pleasant and Cooperative, NAD on RA,.?Heart:?Regular Rate and Rhythm, no murmur, rubs or gallops.?HEENT:?pharynx and tonsils normal, TM's normal.?Lungs:?LCTAB, No wheezes, crackles or rhonchi, Good air movement,.?Abdomen:?Soft, NTND, BSNA, No organomegaly or peritoneal signs..?Skin:?without acute rashes.?Extremities:?normal ROM,, no clubbing, no edema,, no foot lesions,.?Psych?Normal Mood/Affect.? Assessment: * Assessment: 1.?Mixed hyperlipidemia - E7 8.2 (Primary)?2.?Primary hypertension - I10?3.?Type 2 diabetes mellitus with hyperglycemia, without long-term current use of insulin - E11.65?4.?Healthcare maintenance - Z00.00? Plan: * Treatment: 2.?Primary hypertension? Notes: COntrolled 100/66 today?? 3.?Type 2 diabetes mellitus with hyperglycemia, without long-term current use of insulin?LAB: HEMOGLOBIN A1c (496) Notes: Home reading slightly increased in the 120-140 range. Currently on selequa and jardiance Repeat A1c today?? 4.?Healthcare maintenance? Notes: Due for cscope last 2013 with no polyps --Had diverticulitis. Will repeat endoscopy. Up-to-date with vaccines. Weight maintenance discussed. Good blood pressure control. Non-smoker ? Referral To: ?Reason:Dr. Garduno for 10 year colonoscopy f.u * Follow Up:?prn * * Sign off status: Completed true * Provider:?Tej Hebert MD Date :?09/12/2023 Generated for Printi ng/Faelizabethg/eTransmitting on:?04/08/2024 11:57 AM EDT History and Physical Notes * Examination Category [...]
--- OUTSIDE RECORDS SUMMARY | 2024-04-08 11:57 | XMS_ITS ---
Author Organization [facility] Address [address] [place], [place] [address] Care Team Providers Care Human Resources Project Coordinator Name Role Phone Tej Hebert Primary Care Provider Tej Hebert Unavailable Unavailable Allergies No Known Allergies Results Component Value Reference Range Notes LIPID PANEL, STANDARD (7600) Reviewed date:03/05/2024 09:38:58 AM Interpretation: Performing Lab:CB, [facility] [id number] [facility]olp[facility] Maximo Richter Notes/Report: NON-FASTING; NON-FASTING; NON-FASTING FASTING:YES [...] LDL-C. Tom SS et al. PHONG. 2013;310(19): 8894-6194 (http://education.Hurray!.Jule Game/faq/ONX216) CHOL/HDLC RATIO 3.3 <5.0 (calc) NON HDL CHOLESTEROL 109 <130 mg/dL (calc) For patients with diabetes plus 1 major ASCVD risk factor, treating to a non-HDL-C goal of <100 mg/dL (LDL-C of <70 mg/dL) is considered a therapeutic option. COMPREHENSIVE METABOLIC PANBeata Medina (58088) Reviewed date:03/05/2024 09:38:58 AM Interpretation: Performing Lab:[facility] [address], [place] Maximo Richter Notes/Report: NON-FASTING; NON-FASTING; NON-FASTING FASTING:YES [...] Reviewed date:03/05/2024 09:38:58 AM Interpretation: Performing Lab:[facility] [address] [facility], [facility]CyqmOE[address] Maximo Richter Notes/Report: NON-FASTING; NON-FASTING; NON-FASTING FASTING:YES [...] a change in test platforms from the [employer]ol[employer] to the Robb marimar c503 may have shifted HbA1c results compared to historical results. Based on laboratory validation testing conducted at [facility], the Robb platform relative to the Rod [...] hernia. Patient states he had surgery around 6925-1853.He states it was about golf ball size yesterday. Medications Medication SIG (Take, Route, Frequency, Duration) [...] for 90 days Active Comfort EZ Pen [place] 32G X 5, 100 ea - as [...] once a day for 30 days Active Problems Problem Type SNOMED Code ICD Code Onset Dates Problem Status W/U Status Risk Notes Problem [id number] 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) Active confirmed Problem [id number] Atherosclerotic heart disease of [place] coronary artery without angina pectoris (I25.10) Active confirmed Vital Signs Temperature 97.7 degrees Fahrenheit 03/03/20 24 Blood pressure systolic 140 mm Hg 03/03/20 24 Blood pressure diastolic 70 mm Hg 024 Heart Rate 76 /min 03/03/2024 Height 5 ft 11 in in 03/03/2024 Weight 381.2 lbs 03/03/2024 BMI 53.16 kg/m2 03/03/2024 Encounters Encounter Location Date Provider Diagnosis [facility] [address] [facility] [address] [place] [address] 03/03/2024 Tej Hebert Type 2 diabetes cecile itus with other circulatory complications E11.59 ; Atherosclerotic heart disease of [place] coronary artery without angina pectoris I25.10 ; Mixed hyperlipidemia E78.2 and Recurrent umbilical hernia K42.9 Assessments Encounter Date Diagnosis (ICD Code) Assessment Notes Treatment Notes Treatment Clinical Notes [...] personally 03/03/2024 Atherosclerotic hear t disease of [place] coronary artery without angina pectoris (ICD-10 - I25.10) 03/03/2024 Mixed hyperlipidemia (ICD-10 - E78.2) 03/03/2024 Recurrent umbilical hernia (ICD-10 - K42.9) Patient has proactively gotten an appoint with surgery.Encourage this. Encouraged weight belt/attempting to reduce stress on the umbilical hernia Plan Of Treatment Treatment Notes Assessment Notes Type 2 diabetes [...] personally Recurrent umbilical hernia Patient has p bladimirly gotten an appoint with surgery.Encourage this. Encouraged weight belt/attempting to reduce stress on the umbilical hernia Next Appt Details Follow Up: 4 Months, Reason: Provider Name:Tej Hebert, 07/09/2024 10:00:00 AM, [address], [place], [address], Progress Notes * JENNIFER MaximoDOB: 8 (58 yo M)Acc No.[id number]:03/03/2024 Progress Notes Patient:?JENNIFERMaximo Marquez Provider:?Tej Hebert MD :1965???Age:58 Y???Sex:Male Augusto e:03/03/2024 Address:[address] [place] [address], [place], [id number] Subjective: * Chief Complaints: * ???1. Patient here today to evaluate an umbilical hernia. Patient states he had surgery around 3073-1219. He states it was about golf ball size yesterday.. * HPI: ???gen:? Patient is here in follow-up of a [...] lose weight slowly but steadily. * Medical History:?Heart Attac k, HTN, Hyperlipidemia, Umbilical Hernia. * Medications:?Taking Repatha Prefilled Syringe 140 mg/mL [...] THE MORNING , Taking Comfort EZ Pen [place] 32G X 5, 100 ea - as [...] patient * Allergies:?N.K.D.A. Objective: * Vitals:?Nurse: bailey, Pain: 0, Temp: 97.7, RR: 20, HR: 76, BP: 140/70, Ht: 5 ft 11 in, Wt: 381.2, BMI:53.16. * Examination: ???General Examination: ???Lungs clear, heart rate regular, abdomen is soft, does have a palpable umbilical hernia on the right side of the umbilicus its about the size of a golf ball, is reducible with some discomfort. No redness, no deformity of the rest of his abdomen. ?Trace lymphedema as previously noted but overall improving. Assessment: * Assessment: 1.?Type 2 diabetes mellitus with other circulatory complications - E11.59 (Primary)?2.?Atherosclerotic heart disease of [place] coronary artery without angina pectoris - I25.10?3. Mixed hyperlipidemia - E78.2?4.?Recurrent umbilical hernia - K42.9? Plan: * Treatment: 2.?Atherosclerotic heart dis ease of [place] coronary artery without angina pectoris?LAB: LIPID PANEL, STANDARD (7600) ?LAB: COMPREHENSIVE METABOLIC PANEL (66091) ?LAB: HEMOGLOBIN A1c (496) 3.?Mixed hyperlipidemia?LAB: LIPID PANEL, STANDARD (7600) ?LAB: COMPREHENSIVE METABOLIC PANEL (00492) ?LAB: HEMOGLOBIN A1c (496) 4.?Recurrent umbilical herni a? Notes: Patient has proactively gotten an appoint with surgery.Encourage this. Encouraged weight belt/attempting to reduce stress on the umbilical hernia?? * Follow Up:?4 Months * * Sign off status: Completed true * Provider:?Tej Hebert MD Date :?03/03/2024 Generated for Surjit sullivan/Magali/eTransmitting on:?04/08/2024 11:56 AM EDT
--- OUTSIDE RECORDS SUMMARY | 2024-04-08 11:57 | XMS_ITS ---
Author Organization [facility] Address [address] [facility] [address] [place] [address] Care Team Providers Care Photolithographer Name Role Phone Tej Hebert Primary Care Provider Tej Hebert Unavailable Unavailable REASON FOR VISIT 4 month check up Encounters Encounter Location Date Provider Diagnosis [facility] [address] [place] [address] 01/21/2024 Tej Hebert Plan Of Treatment Next Appt Details Provider Name:Tej Hebert, 07/09/2024 10:00:00 AM, [address], [address], [place], [address], Progress Notes * Maximo RODRIGUEZDOB: 8 (58 yo M)Acc No.[id number]:01/21/2024 Progress Notes Patient:?Maximo RODRIGUEZ Provider:?Tej Hebert MD :1965???Age:58 Y???Sex:Male Augusto e:01/21/2024 Address:[address], [place] Subjective: * Chief Complaints: * ???1. 4 month check up. * Medical History:? Objective: * Vitals:? Assessment: Plan: * Treatment: * * Electronic signature of Malick Hebert MD FAAP on 04/08/2024 at 11:56 AM EDT Sign off status: Pending * Provider:?Tej Hebert MD Date :?01/21/2024 Generated for Surjti sullivan/Magali/Stephen on:?04/08/2024 11:56 AM EDT
--- OUTSIDE RECORDS SUMMARY | 2024-04-08 11:57 | XMS_ITS | Patient Health Record ---
Author Organization [facility] Address [address] [place], [place] [address] Care Team Providers Care Mathematics Academic Chair Name Role Phone Tej Hebert Primary Care Provider [phone] Tej Hebert Unavailable Unavailable Allergies No Known Allergies Results Component Value Reference Range Notes HEMOGLOBIN A1c (496) Reviewed date:09/14/2023 10:53:39 AM Interpretation: Performing Lab:CB, [facility] [address], FoodBuzzEednRG[address] Maximo Richter Notes/Report: HEMOGLOBIN A1c 5.6 <5.7 [...] diagnosis of diabetes in children. According to British Diabetes Association (ADA) guidelines, hemoglobin A1c <7.0% represents optimal control in non- diabetic patients. Different metrics may apply to specific patient populations. Standards of Medical Care in Diabetes(ADA). HbA1c performed on Blue Calypso platform. LIPID PANEL, STANDARD (7600) Reviewed date:03/05/2024 09:38:58 AM Interpretation: Performing Lab:CB, [facility] [address], WhoWannaItwvJR[address] Maximo Richter Notes/Report: NON-FASTING; NON-FASTING; NON-FASTING FASTING:YES FASTING: YES CHOLESTEROL, TOTAL 156 <200 mg/dL HDL CHOLESTEROL 47 > OR = 40 mg/dL TRIGLYCERIDES 193 <150 mg/dL LDL-CHOLESTEROL 80 Reference range: <100 Desirable range <100 mg/dL for primary prevention; <70 mg/dL for patients with CHD or diabetic patients with > or = 2 CHD risk factors. LDL-C is now calculated using the Tom-Don calculation, which is a validated novel method providing better accuracy than the Friedewald equation in the estimation of LDL-C. Tom ESTES et al. PHONG. 2013;310(19): 7209-6185 (http://education.Deligic.Glints/faq/ZCK194) CHOL/HDLC RATIO 3.3 <5.0 (calc) NON HDL CHOLESTEROL 109 <130 mg/dL (calc) For patients with diabetes plus 1 major ASCVD risk factor, treating to a non-HDL-C goal of <100 mg/dL (LDL-C of <70 mg/dL) is considered a therapeutic option. COMPREHENSIVE METABOLIC JAMILA Medina (00093) Reviewed date:03/05/2024 09:38:58 AM Interpretation: Performing Lab:CB, [facility] [address], [facility] ClinicZvkmBU[address] Maximo Richter Notes/Report: NON-FASTING; NON-FASTING; NON-FASTING FASTING:YES [...] Reviewed date:03/05/2024 09:38:58 AM Interpretation: Performing Lab:SHRE[facility] Hrzd[address] [facility]ScanteH[facility], Essent[facility] HealthDihlEZ[address] Maximo Richter Notes/Report: NON-FASTING; NON-FASTING; NON-FASTING FASTING:YES [...] change in test platforms from the Rod A&P Mechanic to the Robb marimar c503 may have shifted HbA1c results compared to historical results. Based on laboratory validation testing conducted at [facility], the Robb platform relative to the Rod platform had an average increase in HbA1c value of < or = 0.3%. This difference is within accepted variability established by the National Glycohemoglobin Standardization Program. Note that not all individuals will have had a shift in their results and direct comparisons between historical and current results for testing conducted on different platforms is not recommended. HEMOGLOBIN A1c (496) Reviewed date:05/10/2023 02:57:04 PM Interpretation: Performing Lab:SHRE[facility] [address] [facility] SolutionsH[facility], Essent[facility] HealthGgvnQI[address] Maximo Richter Notes/Report: NON-FASTING; NON-FASTING; NON-FASTING; NON-FASTING; [...] diagnosis of diabetes in children. According to British Diabetes Association (ADA) guidelines, hemoglobin A1c <7.0% represents optimal control in non- diabetic patients. Different metrics may apply to specific patient populations. Standards of Medical Care in Diabetes(ADA). URINALYSIS, COMPLETE (5463) Reviewed date:05/10/2023 02:57:04 PM Interpretation: Performing Lab:SHREYAS, [facility] [address], FoodBuzzBuinRV[address] Maximo Richter Notes/Report: NON-FASTING; NON-FASTING; NON-FASTING; NON-FASTING; [...] HYALINE CAST NONE SEEN NONE SEEN /LPF CBC (INCLUDES DIFF/PLT) (639 9) Reviewed date:05/10/2023 02:57:04 PM Interpretation: Performing Lab:SHREYAS [facility] [address], WhoWannaBeipUM[address] Maximo Richter Notes/Report: NON-FASTING; NON-FASTING; NON-FASTING; NON-FASTING; NON-FAST FASTING:NO FASTING: NO WHITE BLOOD CELL COUNT 9.3 3.8-10.8 Thousand/ uL RED BLOOD CELL COUNT 6.12 4.20-5.80 Million/uL HEMOGLOBIN 18.1 13.2-17.1 g/dL HEMATOCRIT 55.7 38.5-50.0 % MCV 91.0 80.0-100.0 fL MCH 29.6 27.0-33.0 pg MCHC 32.5 32.0-36.0 g/dL RDW 14.0 11.0-15.0 % PLATELET COUNT 273 140-400 Thousand/uL MPV 9.1 7.5-12.5 fL ABSOLUTE NEUTROPHILS 5720 0069-2240 cells/uL ABSOLUTE LYMPHOCYTES 2446 850-3900 cells/uL ABSOLUTE MONOCYTES 735 200-950 cells/uL ABSOLUTE EOSINOPHILS 307 15-500 cells/uL ABSOLUTE BASOPHILS 93 0-200 cells/uL NEUTROPHILS 61.5 LYMPHOCYTES 26.3 MONOCYTES 7.9 EOSINOPHILS 3.3 BASOPHILS 1.0 PROTEIN, TOTAL W/CREAT, RAND OM URINE (2245) Reviewed date:05/10/2023 02:57:04 PM Interpretation: Performing Lab:SHREYAS, [facility]WhoWannae1355 [facility]anteSun[facility] Medical, Essentia HealthCljxES[address] Maximo Richter Notes/Report: NON-FASTING; NON-FASTING; NON-FASTING; NON-FASTING; NON-FAST FASTING:NO FASTING: NO CREATININE, RANDOM URINE 141 20-320 mg/dL PROTEIN/CREATININE RATIO 121 25-148 mg/g crea t PROTEIN/CREATININE RATIO 0.121 0.025-0 .148 mg/mg creat PROTEIN, TOTAL, RANDOM UR 17 5-25 mg/dL COMPREHENSIVE METABOLIC PANE L (08126) Reviewed date:05/10/2023 02:57:04 PM Interpretation: Performing Lab:SHREYAS [facility] [address] [place], Essentia HealthOmivYK[address] Maximo Richter Notes/Report: NON-FASTING; NON-FASTING; NON-FASTING; NON-FASTING; [...] 17 10-35 U/L ALT 21 9-46 U/L LIPID PANEL, STANDARD (7600) Reviewed date:05/10/2023 02:57:04 PM Interpretation: Performing Lab:SHREYAS, [facility] [address], Dwaine MontoyaWwrgJI[address] Maximo Richter Notes/Report: NON-FASTING; NON-FASTING; NON-FASTING; NON-FASTING; [...] LDL-C. Tom SS et al. PHONG. 2013;310(19): 7875-2563 (http://education.Deligic.Glints/faq/ACD011) CHOL/HDLC RATIO 4.0 <5.0 (calc) NON HDL CHOLESTEROL 145 <130 mg/dL (calc) For patients with diabetes plus 1 major ASCVD risk factor, treating to a non-HDL-C goal of <100 mg/dL (LDL-C of <70 mg/dL) is considered a therapeutic option. Reason For Referral Reason Dr. Garduno for 10 ye ar colonoscopy f.u Diagnosis 1 [facility] (Z00.00) Referral Organization [facility] Referring Provider First Name Tej Referring Provider Last Name Anup Referring Provider Speciality Internal edicine Referred Organization [facility] Referred Address [address] [facility] [address] [facility], [place], [place],[address], Referred Provider Specialty Gastroentero logy General Notes email sent to steven chatman with information Referral Priority Routine Referral Appointment Date 11/30/[address] Garduno- Colonosc opy- Dr. Garduno [facility] Referral Organization [facility] Referring Provider First Name Tej Referring Provider Last Name Anup Referring Provider Speciality Internal M edicine Referral Priority Routine Referral Appointment Date 03/14/2024 Medications Medication SIG (Take, Route, Frequency, Duration) Notes Start Date End Date Status Comfort EZ Pen [place] 32G X 5, 100 ea - as [...] (in the morning) for 30 day(s) Active Social History Tobacco Use: Social History [...] User Light cigarett e smoker ((1-9 cigs/day) Problems Problem Type SNOMED Code ICD Code Onset Dates Problem Status W/U Status Risk Notes Problem [id number] 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) Active confirmed Problem 279477033 Mixed hyperlipidemia (E78.2) Active confirmed Problem 501983105 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) Active confirmed Problem 621221943 Personal history of nicotine dependence (Z87.891) Active confirmed Problem 886132301 Morbid obesity (E66.01) Active confirmed Problem 629239233 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) Active confirmed Problem 12379383646333 Arthritis, multiple joint involvement (M12.9) Active confirmed Problem 82338051128724 Arthritis involving multiple sites (M12.9) Active confirmed Problem 57090810 Gouty arthritis (M10.9) Active confirmed Problem 30763427 Seasonal allergi c rhinitis due to pollen (J30.1) Active confirmed Problem 72685154 Primary hypertension (I10) Active confirmed Problem 719940649 Acquired lymphedema of lower extremity (I89.0) Active confirmed Vital Signs Heart Rate 76 /min 03/03/2024 Temperature 97.7 degrees Fahrenheit 03/03/2024 Blood pressure diastolic 70 mm Hg 03/03/2024 Height 5 ft 11 in in 03/03/2024 Blood pressure systolic 140 mm Hg 03/03/2024 Weight 381.2 lbs 03/03/2024 BMI 53.16 kg/m2 03/03/2024 Encounters Encounter Location Date Provider Diagnosis [facility] [address] [facility] [address] [place], [place] [address] 05/07/2023 Tej Anup Type 2 diabetes cecile itus with hyperglycemia, without long-term current use of insulin E11.65 ; Atherosclerosis of red cliff coronary artery of red cliff heart without angina pectoris I25.10 ; Mixed hyperlipidemia E78.2 and Seasonal allergic rhinitis due to pollen J30.1 [facility] [address] [facility] [address] [place] [address] 09/12/2023 Tej Hebert Mixed hyperlipidemia E78.2 ; Primary hypertension I10 ; Type 2 diabetes mellitus with hyperglycemia, without long-term current use of insulin E11.65 and Healthcare maintenance Z00.00 [facility] [address] [facility] [address] [place] [address] 03/03/2024 Tej Hebert Type 2 diabetes cecile itus with other circulatory complications E11.59 ; Atherosclerotic heart disease of red cliff coronary artery without angina pectoris I25.10 ; Mixed hyperlipidemia E78.2 and Recurrent umbilical hernia K42.9 Assessments Encounter Date Diagnosis (ICD Code) Assessment Notes Treatment Notes Treatment Clinical Notes 05/07/2023 Atherosclerosis of red cliff coronary artery of red cliff heart without angina pectoris (ICD-10 - I25.10) [...] personally 03/03/2024 Atherosclerotic hear t disease of red cliff coronary artery without angina pectoris (ICD-10 - [...] on the umbilical hernia Plan Of Treatment Pending Test Test Name Order Date Physical Therapy : Lymphedema 01/09/2022 M-Complete Blood Count Auto Diff 023 M-Comprehensive Metabolic Panel 08/30/19 23 M-Hemoglobin A1C 08/30/2022 M-Uric Acid 08/30/2022 M-Lipid Panel 08/30/2022 M-Thyroid Stimulating Hormone 08/30/2022 CT Scan : Chest, Lung Cancer Screening 0 08/30/2022 Uric Acid 05/17/2022 Next Appt Details Provider Name:Tej Samir Hebert, 07/09/2024 10:00:00 AM, [address], [address], [place], [address], Insurance Providers Payer Name Payer Address Payer Phone Subscriber Number Group Number Insured Name Patient Relationship to Insured Coverage Start Date Coverage End Date [facility] [address] [place] [address] [id number] Maximo Espitia Self - patient is the insured Medications Administered Medication Instructions Date of Administration Dosage Notes Dexamethasone 4mg Injection 01/03/2023 4 mg Medical (General) History Medical History History ICD Code Heart Attack HTN Hyperlipidemia Umbilical Hernia Surgical History Surgery Date(Month/Year) 2 cardiac stents 2016 1 cardiac stent 2018 left rotator cuff repair 10/2021 Colonoscopy s/p diverticulitis, negative for polys 2013 lt shoulder surgery 2021 Hospitalization History Reason Date(Month/Year) lt shoulder surgery 2021 2 cardiac stents 2016
== END 2024-04-03 23:59 | disposition home or self-care (01) ==
PROVIDERS: PCP Internal Medicine Adolescent Medicine; Visit Provider Physician Assistant
DX: I50.42 Chronic combined systolic (congestive) and diastolic (congestive) heart failure (principal); I25.118 Atherosclerotic heart disease of native coronary artery with other forms of angina pectoris; Z01.818 Encounter for other preprocedural examination
CPT/HCPCS: 93306

== ENCOUNTER 2024-04-04 07:51 | Outpatient (CLI) | payer BC, SELFPAY ==
--- NOTE | 2024-04-04 | CA_ITS ---
APPROVED REPORT Exam: Pharmacologic Technologist: Shira Andrade, Ht: 5 ft 11 in Wt: 385 lbs BSA: 2.79 m2 HR: 63 bpm BP: 119/65 mmHg Rhythm: Nsr, left axis deviation, poor R wave progression Indications: CAD pre op testing Medical History Medical History: HTN, Hyperlipidemia, Smoking Medications: Aspirin, Clopidogrel, Empagliflozin, Evolocumab, Indomethacin, Soliqua, Isosorbide Mononitrate ER, Levothyroxine, Losartan, Metoprolol Succinate ER, Nitroglycerin, Spironolactone Allergies: Statins-HMG CoA Reductase Inhibitor Cardiac Risk Factors: HTN, Hyperlipidemia, Smoking Stress Test Details Test: LEXISCAN HR Resting HR: 71 bpm Max Heart Rate (APMHR): 164 bpm Max HR Achieved: 90 bpm Target HR (85% APMHR): 139 bpm % of APMHR: 55 Recovery HR: 74 bpm BP Resting BP: 119/65 mmHg Max BP: 134/62 mmHg Recovery BP: 131.0/69.0 mmHg ECG Resting ECG: Nsr, left axis deviation, poor R wave progression Stress ECG: No significant ST changes Arrhythmia: Occasional PVCs Clinical Exercise duration: 04:32 min Highest Stage Achieved: Stress ECG Conclusion Pt had soa and mild head discomfort. No chest pain. Occasional PVC No significant ST changes Conclusion: Unremarkable lexiscan stress. Myoview images reported separately. Test Summary REST . . . . . . . Resting REST 03:46 . . 71 . 119/ 65 . . Stage 1 01:00 . . 83 . . . . Stage 2 01:00 . . 86 . . . . Stage 3 01:00 . . 82 . 134/ 62 . . Stage 4 01:00 . . 82 . 124/ 62 . . Stage 4 01:32 . . 80 . 124/ 62 . Stop exercise at 04:32 RECOVERY 01:00 . . 76 . . . . RECOVERY 02:00 . . 82 . 118/ 70 . . RECOVERY 03:00 . . 74 . 118/ 70 . . RECOVERY 03:27 . . 74 . 131/ 69 . . Electronically signed by : Yolanda Portillo MD 04/07/2024 22:56:02
--- NOTE | 2024-04-04 07:58 | NM_ITS ---
APPROVED REPORT Exam: Nuclear Stress Test Indication: cad, chf, htn, hyperlipidemia, tob use, c.p., edema, sleep apnea Patient Location: Outpatient Stress Tech: Shira Andrade CO Tech:Fani Kerr SHERMAN RT (R)(N)(M) Ht: 6 ft 1 in Wt: 384 lbs HR: 71 bpm BP: 119/65 mmHg BSA: 2.84 m2 TID: 1.68 BMI: 50.6 History: cad, chf, htn, hyperlipidemia, tob use, c.p., edema, sleep apnea. pt could not lay on stomach for prone images. Procedure: Patient received 0.4 mg of intravenous Lexiscan, resting heart rate 71 bpm, resting blood pressure 119/65 mmHg, with Lexiscan maximum heart rate achieved was 86 bpm which is % of the maximum predicted heart rate and blood pressure was 134/62 mmHg. With Lexiscan, patient denied any complaint of chest pain. Cardiac Stress and Resting SPECT Images: Cardiac Stress and Resting SPECT images were obtained using technetium 99m Myoview 31.6 mCi stress and 10.51 mCi at rest. The patient could not lie on his abdomen. Therefore, prone stress imaging is not performed. This may affect the diagnostic interpretation of the study findings. Resting and stress imaging in supine positions demonstrate a large sized, moderate, reversible perfusion defect in the inferior LV wall. There is increase in transient ischemic dilatation ratio (TID 1.68), suggestive of possible multivessel disease or balanced ischemia. Gated imaging demonstrates normal global LV systolic function. There is mild hypokinesis of the inferior LV wall. LVEF is calculated at 54%. Conclusion: Large sized, moderate, reversible perfusion defect in the inferior LV wall. Findings are suggestive of reversible ischemia. There is increase in transient ischemic dilatation ratio (TID 1.68), suggestive of possible multivessel disease or balanced ischemia. Gated imaging demonstrates normal global LV systolic function. There is mild hypokinesis of the inferior LV wall. LVEF is calculated at 54%. Electronically signed by : Yolanda Portillo MD 04/07/2024 22:58:14
[2024-04-04] MEDS: SODIUM CHLORIDE 0.9% 10ML SYR (RAD ONLY) 10 ML IV ×2 (08:00→08:50)
[2024-04-04] MEDS: REGADENOSON 0.4MG/5ML SYRINGE 0.4 MG IV (08:50)
[2024-04-04] MEDS: ISOTOPE MYOVIEW (PER STUDY) 1 DOSE IV (09:30)
== END 2024-04-04 23:59 | disposition home or self-care (01) ==
LOC: RAD 07:52
PROVIDERS: PCP Internal Medicine Adolescent Medicine; Visit Provider Physician Assistant
DX: Z01.818 Encounter for other preprocedural examination (principal); I25.118 Atherosclerotic heart disease of native coronary artery with other forms of angina pectoris
CPT/HCPCS: 78452; 93017; 93018; A9502; J2785

== ENCOUNTER 2024-04-23 07:35 | Day surgery (SDC) | payer BC, SELFPAY ==
[2024-04-23] VITALS (13 sets, daily range): BP systolic 93–144; BP diastolic 53–98; PULSE 50–84; RESP 16–19; TEMP 36.7; O2SAT 93–98; BMI 53.8
--- NOTE | 2024-04-23 07:13 | IR_ITS ---
APPROVED REPORT Patient Location: Outpatient Assistant Front Desk Manager: SHERMAN Greer RT (R) PROCEDURES Left heart catheterization Left ventriculogram Selective coronary angiogram INDICATION Abnormal Myoview Informed consent was obtained prior to the procedure. COMPLICATIONS NONE Estimated Blood Loss: LESS THAN 10 ML TECHNIQUE One percent lidocaine used to anesthetize the right anterior aspect of the wrist. The right radial artery was accessed via the Seldinger technique. A 6 Georgian sheath was placed in the right radial artery. 2.5 mg of Verapamil, 800 mcg of nitroglycerin, 1mg Lidocaine and 5000 U Heparin were given through the arterial sheath. The papa catheter was also used to perform left heart catheterization, left ventriculogram and selective coronary angiogram. At the end of the procedure the sheath was removed good hemostasis was achieved using Traclet band, patient was transferred to the postop holding area in stable condition. ANGIOGRAPHIC RESULTS The left main artery Normal The left anterior descending artery Proximal 10% luminal irregularities with mid vessel concentric 30% stenosis The circumflex artery Has diffuse 20% luminal regularities The right coronary artery Dominant with diffuse 20 and 30% luminal regularities The MCDONALD ventriculogram reveals Hyperdynamic at 70% The left ventricular end-diastolic pressure Severely elevated at 25 to 30 mmHg IMPRESSION Mild to moderate nonflow limiting coronary disease Hyperdynamic ventricle Elevated LVEDP PLAN 1. Increase spironolactone to 100 mg daily plus add Lasix 40 mg daily 2. Recommend sleep study 3. Medical management 4. Weight loss 5. Risk factor modification Electronically signed by : Griffin Dinh MD 04/23/2024 15:43:32
--- OUTSIDE RECORDS SUMMARY | 2024-04-23 07:38 | XMS_ITS ---
Author Organization [facility] Address [address] [place] [address] Care Team Providers Care Remelt Sugar Boiler Name Role Phone Tej Hebert Primary Care Provider Tej Hebert Unavailable Unavailable Allergies No Known Allergies Results Component Value Reference Range Notes HEMOGLOBIN A1c (496) Reviewed date:09/14/2023 10:53:39 AM Interpretation: Performing Lab:CB, [facility] [address], [place] MontoyaCyziUF[address] Maximo Richter Notes/Report: HEMOGLOBIN A1c 5.6 <5.7 [...] diagnosis of diabetes in children. According to [place] Diabetes Association (ADA) guidelines, hemoglobin A1c <7.0% represents optimal control in non- diabetic patients. Different metrics may apply to specific patient populations. Standards of Medical Care in Diabetes(ADA). HbA1c performed on Adcast platform. Reason For Referral Reason Dr. Garduno for 10 ye ar colonoscopy f.u Diagnosis [address] [facility] ce (Z00.00) Referral Organization [facility] Referring Provider First Name Tej Referring Provider Last Name Anup Referring Provider Speciality Internal M edicine Referred Organization [facility] Referred Address [address] [facility] [address] [facility], [place],[address] Referred Provider Specialty Gastroentero andrew General Notes [...] 25 days 09/19/2022 Active Comfort EZ Pen [place] 32G X 5, 100 ea - as [...] 09/12/2023 Encounters Encounter Location Date Provider Diagnosis [facility] [address] [place], [place] [address] 09/12/2023 Tej Hebert Mixed hyperlipidemia E78.2 ; [...] [address], [place], [address], Next Appt Details Follow Up: prn, Reason: Provider Name:Tej Samir Hebert, 07/09/2024 10:00:00 AM, [address], [address], [place], [address], Progress Notes * JENNIFERMaximo MarquezDOB: 8 (57 yo M)Acc No.[id number]:09/12/2023 Progress Notes Patient:?Maximo RODRIGUEZ Provider:?Tej Hebert MD :1965???Age:57 Y???Sex:Male Augusto e:09/12/2023 Address:[address] [place], [place] [address] Subjective: * Chief Complaints: * ???1. 4 [...] a day , Taking Comfort EZ Pen [place] 32G X 5, 100 ea - as [...] Hebert MD Date :?09/12/2023 Generated for Printi ng/Faxing/eTransmitting on:?04/23/2024 07:37 AM EDT History and Physical Notes * [...]
--- OUTSIDE RECORDS SUMMARY | 2024-04-23 07:38 | XMS_ITS ---
Author Organization [facility] Address [address] [facility] [address] [place] [address] Care Team Providers Care Tin Roller Hot Mill Name Role Phone Tej Hebert Primary Care Provider Tej Hebert Unavailable Unavailable REASON FOR VISIT 4 month check up Encounters Encounter Location Date Provider Diagnosis [facility] [address] [place] [address] 01/21/2024 Tej Hebert Plan Of Treatment Next Appt Details Provider Name:Tej Hebert, 07/09/2024 10:00:00 AM, [address], [address], [place], [address], Progress Notes * Maximo RODRIGUEZDOB: 8 (58 yo M)Acc No.[id number]:01/21/2024 Progress Notes Patient:?Maximo RODRIGUEZ Provider:?Tej Hebert MD :1965???Age:58 Y???Sex:Male Augusto e:01/21/2024 Address:[address], [place] Subjective: * Chief Complaints: * ???1. 4 month check up. * Medical History:? Objective: * Vitals:? Assessment: Plan: * Treatment: * * Electronic signature of Malick Hebert MD FAAP on 04/23/2024 at 07:37 AM EDT Sign off status: Pending * Provider:?Tej Hebert MD Date :?01/21/2024 Generated for Surjit sullivan/Magali/Stephen on:?04/23/2024 07:37 AM EDT
--- OUTSIDE RECORDS SUMMARY | 2024-04-23 07:38 | XMS_ITS ---
Author Organization [facility] Address [address] [place], [place] [address] Care Team Providers Care Certified Respiratory Therapist Name Role Phone Tej Hebert Primary Care Provider [phone] Tej Hebert Unavailable Unavailable Allergies No Known Allergies Results Component Value Reference Range Notes LIPID PANEL, STANDARD (7600) Reviewed date:03/05/2024 09:38:58 AM Interpretation: Performing Lab:CB, [facility] Uvpm[address] [facility], [facility], [facility] CenterTmpgID[address] Maximo Richter Notes/Report: FASTING: YES FASTING:YES NON-FASTING; NON-FASTING; NON-FASTING CHOLESTEROL, TOTAL 156 <200 mg/dL HDL CHOLESTEROL [...] LDL-C. Tom SS et al. PHONG. 2013;310(19): 8439-3897 (http://education.Olympia Media Group.Maytech/faq/TKX859) CHOL/HDLC RATIO 3.3 <5.0 (calc) NON HDL CHOLESTEROL 109 <130 mg/dL (calc) For patients with diabetes plus 1 major ASCVD risk factor, treating to a non-HDL-C goal of <100 mg/dL (LDL-C of <70 mg/dL) is considered a therapeutic option. COMPREHENSIVE METABOLIC PANBeata Medina ([address]) Reviewed date:03/05/2024 09:38:58 AM Interpretation: Performing Lab:[facility] Untr[address] [facility], [facility] ServicesUvhwQA[address] Maximo Richter Notes/Report: NON-FASTING; NON-FASTING; NON-FASTING FASTING:YES [...] Reviewed date:03/05/2024 09:38:58 AM Interpretation: Performing Lab:[facility] Qbui[address]26 [address] [facility], [facility] ServicesBydgUD[address] aMximo Richter Notes/Report: FASTING: YES FASTING:YES NON-FASTING; NON-FASTING; NON-FASTING HEMOGLOBIN A1c 6.0 <5.7 % of total [...] change in test platforms from the Rod Venue Manager to the Robb marimar c503 may have shifted HbA1c results compared to historical results. Based on laboratory validation testing conducted at [facility], the Robb platform relative to the Rod [...] hernia. 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) Active confirmed Problem 563282498 Atherosclerotic heart disease of campo coronary artery without angina pectoris (I25.10) Active confirmed Vital Signs Temperature 97.7 degrees Fahrenheit 03/03/20 24 Blood pressure systolic 140 mm Hg 03/03/20 24 Blood pressure diastolic 70 mm Hg 024 Heart Rate 76 /min 03/03/2024 Height 5 ft 11 in in 03/03/2024 Weight 381.2 lbs 03/03/2024 BMI 53.16 kg/m2 03/03/2024 Encounters Encounter Location Date Provider Diagnosis [facility] [address] [facility] [address] [place] [address] 03/03/2024 Tej Hebert Type 2 diabetes cecile itus with other circulatory complications E11.59 ; Atherosclerotic heart disease of campo coronary artery without angina pectoris I25.10 ; [...] personally 03/03/2024 Atherosclerotic hear t disease of campo coronary artery without angina pectoris (ICD-10 - [...] [address], [address], [place], [address], Progress Notes * JENNIFER MaximoDOB: 8 (58 yo M)Acc No.[id number]:03/03/2024 Progress Notes Patient:?JENNIFERMaximo Marquez Provider:?Tej Hebert MD :1965???Age:58 Y???Sex:Male Augusto e:03/03/2024 Address:[address] [place] [address], [place], [place] Subjective: * Chief Complaints: * ???1. Patient here today to evaluate an umbilical hernia. Patient states he had surgery around 3153-9535. He states it was about golf ball [...] THE MORNING , Taking Comfort EZ Pen [place] 32G X 5, 100 ea - as [...] complications - E11.59 (Primary)?2.?Atherosclerotic heart disease of campo coronary artery without angina pectoris - I25.10?3. Mixed hyperlipidemia - E78.2?4.?Recurrent umbilical hernia - K42.9? Plan: * Treatment: 2.?Atherosclerotic heart dis ease of campo coronary artery without angina pectoris?LAB: LIPID PANEL, STANDARD (7600) ?LAB: COMPREHENSIVE METABOLIC PANEL (91020) ?LAB: HEMOGLOBIN A1c (496) 3.?Mixed hyperlipidemia?LAB: LIPID PANEL, STANDARD (7600) ?LAB: COMPREHENSIVE METABOLIC PANEL (50874) ?LAB: HEMOGLOBIN A1c (496) 4.?Recurrent umbilical herni a? Notes: Patient has proactively gotten an appoint with surgery.Encourage this. Encouraged weight belt/attempting to reduce stress on the umbilical hernia?? * Follow Up:?4 Months * * Sign off status: Completed true * Provider:?Tej Hebert MD Date :?03/03/2024 Generated for Surjit sullivan/Magali/eTransmitting on:?04/23/2024 07:37 AM EDT
--- OUTSIDE RECORDS SUMMARY | 2024-04-23 07:38 | XMS_ITS | Patient Health Record ---
Author Organization [facility] Address [address] [place], [place] [address] Care Team Providers Care Balcony Worker Name Role Phone Tej Hebert Primary Care Provider Tej Hebert Unavailable Unavailable Allergies No Known Allergies Results Component Value Reference Range Notes HEMOGLOBIN A1c (496) Reviewed date:09/14/2023 10:53:39 AM Interpretation: Performing Lab:CB, [facility] [address], Kaonetics TechnologiesRvdiWE[address] Maximo Richter Notes/Report: HEMOGLOBIN A1c 5.6 <5.7 [...] diagnosis of diabetes in children. According to [place] Diabetes Association (ADA) guidelines, hemoglobin A1c <7.0% represents optimal control in non- diabetic patients. Different metrics may apply to specific patient populations. Standards of Medical Care in Diabetes(ADA). HbA1c performed on [employer] platform. LIPID PANEL, STANDARD (7600) Reviewed date:03/05/2024 09:38:58 AM Interpretation: Performing Lab:CB, [facility] [address], Blaze BiosciencePszjHG[address] Maximo Richter Notes/Report: NON-FASTING; NON-FASTING; NON-FASTING FASTING:YES FASTING: YES CHOLESTEROL, TOTAL 156 <200 mg/dL HDL CHOLESTEROL 47 > OR = 40 mg/dL TRIGLYCERIDES 193 <150 mg/dL LDL-CHOLESTEROL 80 Reference range: <100 Desirable range <100 mg/dL for primary prevention; <70 mg/dL for patients with CHD or diabetic patients with > or = 2 CHD risk factors. LDL-C is now calculated using the Tmo-Don calculation, which is a validated novel method providing better accuracy than the Friedewald equation in the estimation of LDL-C. Tom ESTES et al. PHONG. 2013;310(19): 0453-6880 (http://education.[employer].iJento/faq/VFQ459) CHOL/HDLC RATIO 3.3 <5.0 (calc) NON HDL CHOLESTEROL 109 <130 mg/dL (calc) For patients with diabetes plus 1 major ASCVD risk factor, treating to a non-HDL-C goal of <100 mg/dL (LDL-C of <70 mg/dL) is considered a therapeutic option. COMPREHENSIVE METABOLIC JAMILA Medina ([id number]) Reviewed date:03/05/2024 09:38:58 AM Interpretation: Performing Lab:CB, [facility] [address], [facility] HospitalGecuGF[address] Maximo Richter Notes/Report: NON-FASTING; NON-FASTING; NON-FASTING FASTING:YES [...] Reviewed date:03/05/2024 09:38:58 AM Interpretation: Performing Lab:[facility] [address] [facility] [place] [facility] ServicesCjmvPP[address] Maximo Richter Notes/Report: NON-FASTING; NON-FASTING; NON-FASTING FASTING:YES [...] change in test platforms from the Rod Brattice Builder to the Robb marimar c503 may have shifted HbA1c results compared to historical results. Based on laboratory validation testing conducted at [facility], the Robb platform relative to the Rod [...] Reviewed date:05/10/2023 02:57:04 PM Interpretation: Performing Lab:[facility] [address] [facility] [place] [facility] ServicesOfwlKY[address] Maximo Richter Notes/Report: NON-FASTING; NON-FASTING; NON-FASTING; NON-FASTING; NON-FAST FASTING:NO FASTING: NO HEMOGLOBIN A1c 5.4 <5.7 % of total Hgb According to [place] Diabetes Association (ADA) guidelines, hemoglobin A1c <7.0% represents optimal control in non- diabetic patients. Different metrics may apply to specific patient populations. Standards of Medical Care in Diabetes(ADA). Currently, no consensus exists regarding use of hemoglobin A1c for diagnosis of diabetes in children. For the purpose of screening for the presence of diabetes: <5.7% Consistent with the absence of diabetes 5.7-6.4% Consistent with increased risk for diabetes (prediabetes) > or =6.5% Consistent with diabetes This assay result is consistent with a decreased risk of diabetes. URINALYSIS, COMPLETE ([id number]) Reviewed date:05/10/2023 02:57:04 PM Interpretation: Performing Lab:[facility] [employer] [facility], Kaonetics TechnologiesFnmqTC[address] Maximo Richter Notes/Report: NON-FASTING; NON-FASTING; NON-FASTING; NON-FASTING; [...] CAST NONE SEEN NONE SEEN /LPF NOTE RBC, bacteria, casts, and other formed elements. Only those elements seen were reported. This urine was analyzed for the presence of WBC, CBC (INCLUDES DIFF/PLT) ([id number] 9) Reviewed date:05/10/2023 02:57:04 PM Interpretation: Performing Lab:[facility] [facility], [employer] BioscienceMknlRE[address] Maxiom Richter Notes/Report: NON-FASTING; NON-FASTING; NON-FASTING; NON-FASTING; NON-FAST FASTING:NO FASTING: NO WHITE BLOOD CELL COUNT 9.3 3.8-10.8 Thousand/ uL RED BLOOD CELL COUNT 6.12 4.20-5.80 Million/uL HEMOGLOBIN 18.1 13.2-17.1 g/dL HEMATOCRIT 55.7 38.5-50.0 % MCV 91.0 80.0-100.0 fL MCH 29.6 27.0-33.0 pg MCHC 32.5 32.0-36.0 g/dL RDW 14.0 11.0-15.0 % PLATELET COUNT 273 140-400 Thousand/uL MPV 9.1 7.5-12.5 fL ABSOLUTE NEUTROPHILS 5720 3494-1766 cells/uL ABSOLUTE LYMPHOCYTES 2446 850-3900 cells/uL ABSOLUTE MONOCYTES 735 200-950 cells/uL ABSOLUTE EOSINOPHILS 307 15-500 cells/uL ABSOLUTE BASOPHILS 93 0-200 cells/uL NEUTROPHILS 61.5 LYMPHOCYTES 26.3 MONOCYTES 7.9 EOSINOPHILS 3.3 BASOPHILS 1.0 PROTEIN, TOTAL W/CREAT, RAND OM URINE ([id number]) Reviewed date:05/10/2023 02:57:04 PM Interpretation: Performing Lab:[facility] [employer], Kaonetics TechnologiesRkvyPF[address] Maximo Richter Notes/Report: NON-FASTING; NON-FASTING; NON-FASTING; NON-FASTING; NON-FAST FASTING:NO FASTING: NO CREATININE, RANDOM URINE 141 20-320 mg/dL PROTEIN/CREATININE RATIO 121 25-148 mg/g crea t PROTEIN/CREATININE RATIO 0.121 0.025-0 .148 mg/mg creat PROTEIN, TOTAL, RANDOM UR 17 5-25 mg/dL COMPREHENSIVE METABOLIC PANE L ([id number]) Reviewed date:05/10/2023 02:57:04 PM Interpretation: Performing Lab:[facility] [address] [employer], Kaonetics TechnologiesDnhfSW[address] Maximo Richter Notes/Report: NON-FASTING; NON-FASTING; NON-FASTING; NON-FASTING; [...] (7600) Reviewed date:05/10/2023 02:57:04 PM Interpretation: Performing Lab:CB, [facility] [address], Dwaine MontoyaNfmwOO[address] Maximo Richter Notes/Report: NON-FASTING; NON-FASTING; NON-FASTING; NON-FASTING; [...] LDL-C. Tom SS et al. PHONG. 2013;310(19): 4007-6484 (http://education.[employer].iJento/faq/GEM258) CHOL/HDLC RATIO 4.0 <5.0 (calc) NON HDL CHOLESTEROL 145 <130 mg/dL (calc) factor, treating to a non-HDL-C goal of <100 mg/dL (LDL-C of <70 mg/dL) is considered a therapeutic option. For patients with diabetes plus 1 major ASCVD risk Reason For Referral Reason Dr. Garduno for 10 ye ar colonoscopy f.u Diagnosis 1 [facility] ce (Z00.00) Referral Organization [facility] Referring Provider First Name Tej Referring Provider Last Name Anup Referring Provider Speciality Internal M edicine Referred Organization [facility] Referred Address [address], [place], [place],[address],[place] Referred Provider Specialty Gastroentero logy General Notes email sent to steven chatman with information Referral Priority Routine Referral Appointment Date 11/30/[address] 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) Active confirmed Problem 783663707 Mixed hyperlipidemia (E78.2) Active confirmed Problem 942556340 Atherosclerotic heart disease of [place] coronary artery without angina pectoris (I25.10) Active confirmed Problem 403411133 Personal history of nicotine dependence (Z87.891) Active confirmed Problem 788205377 Morbid obesity (E66.01) Active confirmed Problem 900170670 [facility] (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 of insulin (Z79.4) Active confirmed Problem 66147652966823 Arthritis, multiple joint involvement (M12.9) Active confirmed Problem 15947276299704 Arthritis involving multiple sites (M12.9) Active confirmed Problem 18752781 Gouty arthritis (M10.9) Active confirmed Problem 12752324 Seasonal allergi c rhinitis due to pollen (J30.1) Active confirmed Problem 36248782 Primary hypertension (I10) Active confirmed Problem 496769307 Acquired lymphedema of lower extremity (I89.0) Active confirmed Vital Signs Heart Rate 76 /min 03/03/2024 Temperature 97.7 degrees Fahrenheit 03/03/2024 Blood pressure diastolic 70 mm Hg 03/03/2024 Height 5 ft 11 in in 03/03/2024 Blood pressure systolic 140 mm Hg 03/03/2024 Weight 381.2 lbs 03/03/2024 BMI 53.16 kg/m2 03/03/2024 Encounters Encounter Location Date Provider Diagnosis [place] [facility] [address] [facility] [address] [place], [facility] [id number] 05/07/2023 Tej Anup Type 2 diabetes cecile itus with hyperglycemia, without long-term current use of insulin E11.65 ; Atherosclerosis of [place] coronary artery of [place] heart without angina pectoris I25.10 ; Mixed hyperlipidemia E78.2 and Seasonal allergic rhinitis due to pollen J30.1 [place] [facility] [address] [facility] [address] [place], [facility] [id number] 09/12/2023 Tej Anup Mixed hyperlipidemia E78.2 ; Primary hypertension I10 ; Type 2 diabetes mellitus with hyperglycemia, without long-term current use of insulin E11.65 and Healthcare maintenance Z00.00 [facility] [address] [place] [address] 03/03/2024 Tej Hebert Type 2 diabetes cecile itus with other circulatory complications E11.59 ; Atherosclerotic heart disease of [place] coronary artery without angina pectoris I25.10 ; Mixed hyperlipidemia E78.2 and Recurrent umbilical hernia K42.9 Assessments Encounter Date Diagnosis (ICD Code) Assessment Notes Treatment Notes Treatment Clinical Notes 05/07/2023 Atherosclerosis of [place] coronary artery of [place] heart without angina pectoris (ICD-10 - I25.10) [...] personally 03/03/2024 Atherosclerotic hear t disease of [place] coronary artery without angina pectoris (ICD-10 - [...] Acid 05/17/2022 Next Appt Details Provider Name:Tej Hebert, 07/09/2024 10:00:00 AM, [address], [place], [address], Insurance Providers Payer Name Payer Address Payer Phone Subscriber Number Group Number Insured Name Patient Relationship to Insured Coverage Start Date Coverage End Date [facility] [address] [place] [address] [id number] Maximo Espitia Self - patient is [...]
[2024-04-23 08:19] LABS: Basophils # 0.1 K/mm3 (0-0.2); Basophils % 1.6 % (0.1-2.0); Eosinophils # 0.4 K/mm3 (0.0-0.4); Eosinophils % 4.7 % (0.1-12.0); Hematocrit 54.2 % (42.0-52.0); Hemoglobin 17.1 g/dL (14.1-18.0); Lymphocytes # 2.3 K/mm3 (0.7-4.5); Lymphocytes % 25.5 % (10-50); Mean Corpuscular HGB Conc 31.6 g/dL (31.8-35.4); Mean Corpuscular Hemoglobin 30.6 pg (27.0-31.2); Mean Platelet Volume 6.8 fl (7.4-10.4); Monocytes # 0.7 K/mm3 (0.1-1.0); Monocytes % 7.3 % (1.7-9.3); Neutrophils # 5.5 K/mm3 (1.8-7.8); Neutrophils % 60.9 % (37.0-80.0); Platelet Count 268 K/mm3 (142-424); Red Blood Count 5.58 M/mm3 (4.60-6.20); Red Cell Distribution Width 14.3 % (11.5-17.5)
[2024-04-23 08:31] LABS: Anion Gap 8.3 mEq/L (5-15); Blood Urea Nitrogen 17 mg/dl (9-20); Calcium 9.5 mg/dl (8.4-10.2); Carbon Dioxide 27 mmol/L (22.0-30.0); Chloride 109 mmol/L (98-107); Creatinine Clearance Estimated 80 mL/min (50-200); Estimated Glomerular Filt Rate 69 ml/min (>60); GFR (African American) 84 ML/MIN (>60); Glucose 113 mg/dl (74-100); Potassium 4.3 mmoL/L (3.5-5.1); Sodium 140 mmol/L (136-145)
[2024-04-23] MEDS: HEPARIN 1,000 UNITS/500ML NS (CATH LAB) 3000 UNIT IV (09:39)
[2024-04-23] MEDS: diphenhydrAMINE 50MG/ML VIAL 50 MG IV (09:39)
[2024-04-23] MEDS: 0.9 % SODIUM CHLORIDE 500 ML 25 ML IV (09:40)
[2024-04-23] MEDS: HEPARIN 1,000 UNITS/ML 10ML VIAL (CATH LAB) 10000 UNIT IV (09:40)
[2024-04-23] MEDS: LIDOCAINE 1% 10ML MDV 20 ML IJ (09:41)
[2024-04-23] MEDS: VERAPAMIL 2.5MG/ML 2ML VIAL 2.5 MG IV (09:41)
[2024-04-23] MEDS: MIDAZOLAM HCL 1MG/1ML 5ML VIAL 1 MG IV (09:41)
[2024-04-23] MEDS: NITROGLYCERIN 800MCG/8ML SYR (CATH LAB) 800 MCG IA (09:41)
[2024-04-23] MEDS: FENTANYL 100MCG/2ML VIAL 50 MCG IV (09:42)
--- NOTE | 2024-04-23 10:34 | SUR.PHASEII ---
Pt to post op until discharge. Report given to ADA Samson.
[2024-04-23] MEDS: IOPAMIDOL-370 (76%);100ML BOTTLE 110 ML IV (14:48)
== END 2024-04-23 13:30 | disposition home or self-care (01) ==
PROVIDERS: PCP Internal Medicine Adolescent Medicine; Visit Provider Internal Medicine
DX: I25.118 Atherosclerotic heart disease of native coronary artery with other forms of angina pectoris (principal); R93.1 Abnormal findings on diagnostic imaging of heart and coronary circulation; F17.210 Nicotine dependence, cigarettes, uncomplicated; E11.9 Type 2 diabetes mellitus without complications; Z79.4 Long term (current) use of insulin; Z79.899 Other long term (current) drug therapy; I50.42 Chronic combined systolic (congestive) and diastolic (congestive) heart failure; I11.0 Hypertensive heart disease with heart failure; E66.01 Morbid (severe) obesity due to excess calories; Z68.43 Body mass index [BMI] 50.0-59.9, adult; I25.2 Old myocardial infarction
CPT/HCPCS: 80048; 85025; 93458; 99152; C1725; C1760; C1769; J1200; J1644; J2250; J3010; Q9967

== ENCOUNTER 2024-05-07 13:43 | Outpatient (CLI) | payer BC, SELFPAY ==
[2024-05-07 14:16] LABS: Chloride 104 mmol/L (98-107)
[2024-05-07 14:17] LABS: Potassium 4.5 mmoL/L (3.5-5.1); Sodium 139 mmol/L (136-145)
[2024-05-07 14:20] LABS: Anion Gap 13.5 mEq/L (5-15); Blood Urea Nitrogen 25 mg/dl (9-20); Calcium 9.9 mg/dl (8.4-10.2); Carbon Dioxide 26 mmol/L (22.0-30.0); Estimated Glomerular Filt Rate 63 ml/min (>60); GFR (African American) 76 ML/MIN (>60); Glucose 115 mg/dl (74-100)
[2024-05-07 14:58] LABS: Basophils # 0.1 K/mm3 (0-0.2); Basophils % 1.1 % (0.1-2.0); Eosinophils # 0.4 K/mm3 (0.0-0.4); Eosinophils % 3.9 % (0.1-12.0); Hematocrit 52.7 % (42.0-52.0); Hemoglobin 16.6 g/dL (14.1-18.0); Lymphocytes # 3.2 K/mm3 (0.7-4.5); Mean Corpuscular HGB Conc 31.6 g/dL (31.8-35.4); Mean Corpuscular Hemoglobin 30.7 pg (27.0-31.2); Mean Corpuscular Volume 97.1 fl (80-94); Mean Platelet Volume 7.1 fl (7.4-10.4); Monocytes # 0.6 K/mm3 (0.1-1.0); Neutrophils # 5.7 K/mm3 (1.8-7.8); Neutrophils % 57.2 % (37.0-80.0); Platelet Count 287 K/mm3 (142-424); Red Blood Count 5.43 M/mm3 (4.60-6.20); Red Cell Distribution Width 14.2 % (11.5-17.5); White Blood Count 9.9 K/mm3 (4.8-10.8)
== END 2024-05-07 23:59 | disposition home or self-care (01) ==
LOC: LAB 13:46
PROVIDERS: PCP Internal Medicine Adolescent Medicine; Visit Provider Nurse Practitioner
DX: I95.9 Hypotension, unspecified (principal); E78.2 Mixed hyperlipidemia; R60.0 Localized edema; I25.118 Atherosclerotic heart disease of native coronary artery with other forms of angina pectoris; I10 Essential (primary) hypertension; Z72.0 Tobacco use
CPT/HCPCS: 36415; 80048; 85025

== ENCOUNTER 2024-07-09 12:21 | Outpatient (CLI) | payer BC, SELFPAY ==
[2024-07-09 13:26] LABS: Chloride 108 mmol/L (98-107); Sodium 137 mmol/L (136-145)
[2024-07-09 13:27] LABS: Potassium 4.4 mmoL/L (3.5-5.1)
[2024-07-09 13:29] LABS: Blood Urea Nitrogen 30 mg/dl (9-20); Estimated Glomerular Filt Rate 57 ml/min (>60); GFR (African American) 69 ML/MIN (>60)
[2024-07-09 13:30] LABS: Anion Gap 11.4 mEq/L (5-15); Calcium 9.2 mg/dl (8.4-10.2); Carbon Dioxide 22 mmol/L (22.0-30.0); Glucose 112 mg/dl (74-100)
[2024-07-09 17:40] LABS: Hemoglobin A1C 6.2 % (4.0-6.0)
[2024-07-10 06:05] LABS: Basophils # 0.2 K/mm3 (0-0.2); Basophils % 1.3 % (0.1-2.0); Eosinophils # 0.4 K/mm3 (0.0-0.4); Eosinophils % 3.3 % (0.1-12.0); Hematocrit 49.8 % (42.0-52.0); Hemoglobin 16.4 g/dL (14.1-18.0); Lymphocytes # 2.5 K/mm3 (0.7-4.5); Lymphocytes % 22.8 % (10-50); Mean Corpuscular HGB Conc 32.9 g/dL (31.8-35.4); Mean Corpuscular Volume 94.2 fl (80-94); Mean Platelet Volume 9.3 fl (7.4-10.4); Monocytes # 0.7 K/mm3 (0.1-1.0); Monocytes % 6.8 % (1.7-9.3); Neutrophils # 7.2 K/mm3 (1.8-7.8); Neutrophils % 65.8 % (37.0-80.0); Platelet Count 261 K/mm3 (142-424); Red Blood Count 5.28 M/mm3 (4.60-6.20); Red Cell Distribution Width 14.2 % (11.5-17.5); White Blood Count 10.9 K/mm3 (4.8-10.8)
== END 2024-07-09 23:59 | disposition home or self-care (01) ==
PROVIDERS: PCP Internal Medicine Adolescent Medicine; Visit Provider Surgery
DX: Z01.812 Encounter for preprocedural laboratory examination (principal)
CPT/HCPCS: 80048; 83036; 85025

== ENCOUNTER 2024-07-14 09:46 | Day surgery (SDC) | payer BC, SELFPAY ==
[2024-07-09 12:43] VITALS: BMI 54.5
[2024-07-14] VITALS (13 sets, daily range): BP systolic 105–137; BP diastolic 62–85; PULSE 68–88; RESP 14–18; TEMP 36.1–43; O2SAT 91–98
[2024-07-14] MEDS: LACTATED RINGERS 1000ML 1,000 ML 25 ML IV (10:18)
--- NOTE | 2024-07-14 10:39 | P.PNANES_ITS ---
[facility] Disclaimer: The information contained in this section may have been updated after the patient was seen, as this information can be updated by other users. Medical History Abnormal findings on diagnostic imaging of heart and coronary circulation Atypical angina Pre-op testing Chest pain Diastolic congestive heart failure Hyperlipidemia ALLIE (obstructive sleep apnea) Edema NYHA class 2 and GRICELDA/AHA stage C chronic combined systolic and diastolic congestive heart failure CAD (coronary artery disease) Hypertension Surgical History History of umbilical hernia repair History of colonoscopy Stented coronary artery Family History (Updated 07/09/24 @ 12:41 by Chapin Singh RN) Other Family history of diabetes mellitus Social History (Updated 07/09/24 @ 12:42 by Chapin Singh RN) Smoking Status: Current every day smoker alcohol intake: never substance use type: denies use current occupational status: employed and unemployed Travel in the last 8 weeks: None household members: spouse housing: house [facility] Anesthesia Checklist Patient Identification Patient Identification: Arm Band, Family and Verbal (Name & ) Structural Data Admitted From: Home Planned Operative Procedure/s: Lap. UHR Consent for Planned Operative Procedure(s) Verified: Yes Verified Documents: Surgical Consent and History and Physical NPO Status Verified Time NPO: 22:00 Chart Verification Results Verified: CBC, BMP, ECG and Chest Xray Additional verifications Fingerstick Blood Glucose: 123 Patient : No Anesthesia Reactions: No Hx Blood Transfusions: No Blood Transfusion Reaction: No Cardiovascular Assessment Heart Sounds: S1 & S2 Pulse Rhythm: Irregular Peripheral Edema: No Airway Assessment Mallampati Score:: Class II C-Spine Mobility Assessed: Yes (FROM demonstrated) TMJ Mobility Assessed: Yes Dentition: Good Dentition (Nothing loose per pt.) Neurological Assessment Level of Consciousness: Awake, Alert, Appropriate and Follows Commands Hx Seizures: No Numbness or tingling in extremities: No Anesthesia Plan Anesthesia Risk discussed: Yes Anesthesia Plan: Verified ASA Class: III Anesthesia Type: General
[2024-07-14] MEDS: CEFAZOLIN SODIUM 3 GM in 0.9 % SODIUM CHLORIDE 100 ML IV (11:45)
[2024-07-14] MEDS: LIDOCAINE 1% 30ML PF VIAL 30 ML (12:20)
[2024-07-14] MEDS: ROPIVACAINE 0.5% 30ML VIAL 150 MG (12:20)
--- NOTE | 2024-07-14 13:57 | EXP.OP.NOTE ---
Date of procedure: 07/14/24 Pre-op Diagnosis:: Recurrent umbilical hernia Post-op Diagnosis:: Recurrent chronically incarcerated umbilical hernia Procedure performed:: Laparoscopically directed repair of recurrent chronically incarcerated umbilical hernia with placement of large sized Bard Ventralex mesh after explantation of previously placed prefix plug mesh Surgeon:: Shoaib Garduno MD OPHTHALMIC SURGICAL ASSISTANT:: Mateus Fields Anesthesia: GETA Estimated blood loss (mL): 10 Clinical Note:: Patient presents for hernia repair. I saw him in the office on 03/18/2024. He is a 58-year-old male with a BMI of 53 with history of congestive heart failure, hyperlipidemia, obstructive sleep apnea, coronary disease, hypertension, diabetes. He was a self-referral for recurrent umbilical hernia. I had performed open umbilical hernia repair on him in 2004 with placement of small Bard prefix mesh plug for a tiny 14 mm defect. Over several weeks he has had an intermittent bulge near his umbilical area. He states that it occasionally swells as large as a golf ball. Patient did have a fall getting out of the vehicle (truck bed) and was evaluated in the emergency department with extensive scans performed on 03/10/2024. When I saw him in the office on 03/18/2024 it was felt that the patient likely did have recurrence of hernia. He underwent extensive cardiology evaluation. He would like to undergo hernia repair. I had previously discussed colonoscopy with the patient. He had been previously scheduled for colonoscopy but then canceled after his fall. He had a colonoscopy 11 years ago on 11/21/[address] Beard and had 2 small polyps removed and it was felt that he would likely require a colonoscopy in 1 year. Patient does not want undergo colonoscopy at this time. Operative findings:: Previously placed mesh plug was in place with some omentum adherent. Inferior to this there was a tiny fascial bridge where there was a small defect measuring likely 5 to 7 mmwith chronically incarcerated omentum. There is intense fibrous reaction and scarring around the previously placed mesh . Operative note:: Consent was obtained and patient was taken to the operating room. He was given preoperative intravenous antibiotics. In the operating room he was placed in a supine position. General anesthesia was induced via endotracheal tube. Hennessy catheter was placed. Abdomen was prepped and draped in the standard surgical fashion. Through 5 mm left subcostal incision optical trocar was carefully inserted. CO2 pneumoperitoneum was achieved to 15 mmHg. Laparoscopic surveillance was carried out. There was omentum adherent to apparent umbilical prefix mesh plug. Additional 5 mm trocar was inserted in the left lateral abdomen. Dissection was carried out of the region of the mesh dissecting free the omentum which was adherent using blunt dissection with some use of laparoscopic Metzenbaum dissection. The previously placed mesh was cleaned free. Additional dissection was carried out noting defect a few millimeters inferior to the mesh with fascial bridge intervening. There was some chronically incarcerated omentum. Attempt was made to reduce this without success. The previously placed mesh was dissected free as much as feasible laparoscopically. Plan was then made for open portion of the procedure. Infraumbilical incision was made. Dissection was carried down through subcutaneous tissues. CO2 pneumoperitoneum was then evacuated. The mesh was identified and dissected free from the surrounding fascia. There was an intense fibrous response around the mesh with thick scarring. Using sharp dissection it was dissected free from the surrounding fascia. The several millimeter intervening fascial bridge was then incised. There was a relatively large amount of omentum through a tiny defect. Defect measured 5 to 7 mm. Omentum was removed. The hernia sac was excised from surrounding subcutaneous tissues using electrocautery. Previously excised mesh with the hernia contents and hernia sac were sent off as specimen. Size of the defect with the removal, explantation, of the previous mesh with the tiny recurrent defect measured about 2 cm. Plan was made for repair with large size Bard Ventralex mesh. Large Ventralex mesh measuring 8 cm was rolled and inserted into the peritoneal cavity. The tails of the mesh were sutured superiorly and inferiorly to the fascial edges using 2-0 PDS suture. This resulted in apparent good repair. CO2 pneumoperitoneum was then reestablished. Mesh appeared to be in a good position with good fascial coverage. To ensure good placement and integrity of the mesh it was secured around its periphery with the OPTi fix tacking device. CO2 pneumoperitoneum was then evacuated once again. Fascia was closed over the mesh with interrupted 0 Ethibond sutures. Local anesthetic was infiltrated. Trocars were removed. Umbilical subdermis was reapproximated to the underlying fascia with several interrupted 2-0 Vicryl sutures. Several 2-0 Vicryl sutures were placed in the deep dermis. Skin incisions were closed with 4-0 Monocryl in a subcuticular fashion. Dermabond and dressings were applied. . Condition: stable Disposition: PACU Complications:: None immediately apparent
--- NOTE | 2024-07-14 14:12 | EXP.ANES.I ---
[facility] Anesthesia Record Part I Anesthesia Record I Intake, IV Amount: 1,100 Hydration: Adequate Estimated blood loss (mL): 15 Urine output (mL): 0 Blood Products used (#): none Blood Pressure: 121/82 SaO2: 94 Pulse Rate: 83 Airway Patency: Patent Respiratory Rate: 14 Temperature: 98.2 F Patient is:: Drowsy and Stable Stable to PACU at:: 14:00
[2024-07-14 14:25] LABS: Microscopic,Cath URINE MICROSCOPIC (MICROSCOPIC)
[2024-07-14 14:31] LABS: Appearance,Urine/Cath CLEAR (Clear); Bilirubin,Cath Negative (Negative); Blood, Urine/Cath Negative (Negative); Color,Urine/Cath YELLOW (Yellow); Glucose,Urine/Cath (UA) 1+ (Negative); Ketones,Urine/Cath Negative (Negative); Leukocyte Esterase,Cath Negative (Negative); Nitrate,Cath Negative (Negative); PH,Urine/Cath 6.5 (5.0-8.5); Protein,Urine/Cath Negative (Negative); Specific Gravity, Urine/Cath 1.015 (1.005-1.030); Urobilinogen,Cath 0.2 EU/dl (0.2)
[2024-07-14] MEDS: ALBUTEROL 0.083% 2.5 MG/3 ML NEB IH (14:45)
[2024-07-14 15:30] LABS: WBC,Urine/Cath Occasional #/hpf (0-3)
[2024-07-14 15:31] LABS: Bacteria,Urine/Cath TRACE /lpf
[2024-07-15 08:41] LABS: POC Glucose,Bedside 123 (70-110)
[2024-07-21 09:57] VITALS: BP 124/77; PULSE 77; RESP 18; TEMP 36.4; O2SAT 93
--- NOTE | 2024-07-21 09:57 | P.PNANES_ITS ---
[facility] Anesthesia Record Part II Anesthesia Record Part II Discharge Time: 14:50 Destination: Surgical Day Care (OP Surgery) PACU nurse assessment reviewed?: Yes Patient Condition:: Good Anesthesia Complications:: None Swallowing reflex intact?: Yes Airway Patency: Patent Cyanosis?: No Blood Pressure: 124/77 SaO2: 93 Respiratory Rate: 18 Pulse Rate: 77 Temperature: 97.5 F Mental Status: Alert & Oriented Pain level:: 0 Nausea and/or vomitting:: None Intake, IV Amount: 0 Hydration: Adequate
== END 2024-07-14 15:31 | disposition home or self-care (01) ==
PROVIDERS: PCP Internal Medicine Adolescent Medicine; Visit Provider Surgery
PROC: (CPT 49614; principal; 2024-07-14 11:30)
DX: K42.0 Umbilical hernia with obstruction, without gangrene (principal)
CPT/HCPCS: 49614; 49623; 81001; 82962; 94640; 96374; J3490; C1781; J1100; J2405; J3010; J7120; J7613

== ENCOUNTER 2024-09-01 11:00 | Outpatient (RCR) | payer BC, SELFPAY ==
--- NOTE | 2024-08-08 18:39 | HMH.PTOPEV ---
PT Outpatient Evaluation Rehab PT Outpatient Evaluation Start: 08/08/24 17:41 Freq: Status: Active Protocol: Document 08/08/24 17:41 GEOVANNA (Rec: 08/08/24 18:39 GEOVANNA [id number]) E-signed By Ramon Garces, PT Outpatient Therapy Subjective History Subjective History Patient is a 58 year old male presenting to outpatient PT with reports of LBP/B hip pain R>L. Symptom onset approx 4 months ago after a fall out of a truck. SI special tests negative. No recent LS/hip imaging to report. Comorbidities include hx of HTN, RI, CV stent placement x 3, L shoulder RCR and diabetes . New diagnosis of cancer in past 12 No months? Chief Complaint Pain,Spasms,Stiff Symptom Type Burning Symptoms Relieved By Rest/Positioning Symptoms Aggravated By Sitting,Standing,Bending/ Stooping,Physical Activity, Walking,Lifting Prior Functional Limitations None Current Functional Limitations Lifting,Housework,Sitting, Recreation Activity,Walking, Bending/Stooping Symptom Description Constant but Variable Level of pain today (0-10) 3 Pain scale - at its best (0-10) 3 Pain scale - at its worst (0-10) 8 Lumbopelvic Eval Posture Thoracic Spine Posture Standing Position Increased Kyphosis Lumbar Spine Posture Standing Position Increased Lordosis Assistive device Assistive Devices None / NA Palapation tenderness right Lumbar/Sacral Palpation Findings Tenderness Lumbar/Sacral Palpation Overall Comment R QL/SIJ 3/4 Accessory Movement L4 bilateral L5 bilateral S1 bilateral Range of Motion Lumbar Spine Active Flexion Range of 67 Motion (degrees) Lumbar Spine Active Extension Range of 9 Motion (degrees) Left Lumbar Spine Lateral Flexion Active 18 Range of Motion (degrees) Right Lumbar Spine Lateral Flexion 14 Active Range of Motion (degrees) Lumbar Spine ROM Limitations Soft Tissue Tightness,Bony Restriction Manual Muscle Test Bilateral Knee Extension Strength Grade 4 Good Knee Flexion Strength Grade 4 Good Hip Flexion Strength Grade 4 Good Extensor Hallucis Longus Strength Grade 4 Good Ankle Dorsiflexion Strength Grade 4 Good Gastronemius/Soleus Strength Grade 4 Good Altered Sensation Right LE Dermatome Level S1 Comment Burning not past knee Special Tests Hip Amos (JADEN) Test Positive Left,Positive Right Hip Ivy Test Positive Left,Positive Right Hip Piriformis Test Positive Left,Positive Right Rober Test Positive Sacroiliac Joint Distraction Test Negative Left,Negative Right Lumbar Spine Shah Test Negative Left,Negative Right Hip/Knee Eval Gait Observation General Gait Pattern Observation Antalgic Gait,Decrease Stride Lngth (R) Palpation Tenderness bilateral Knee Palpation Overall Comment B GT 3/4 Hip Palpation Findings Tenderness ROM Hip ROM Reason Not Measured Within Functional Limits Knee ROM Reason Not Measured Within Functional Limits Lower Extremity Functional Index Activities Today, do you or would you have any difficulty at all with: a.Any of your usual work, housework or Moderate difficulty school activities b. Your usual hobbies, recreational or A little bit of difficulty sporting activities c. Getting into or out of the bath A little bit of difficulty d. Walking between rooms A little bit of difficulty e. Putting on your shoes or socks A little bit of difficulty f. Squatting A little bit of difficulty g. Lifting an object, like a bag of A little bit of difficulty groceries from the floor h. Performing light activities around Moderate difficulty your home i. Performing heavy activities around Moderate difficulty your home j. Getting into or out of a car Moderate difficulty k. Walking 2 blocks Quite a bit of difficulty l. Walking a mile Extreme difficulty or unable to perform activity m. Going up or down 10 stairs (about 1 Moderate difficulty flight of stairs) n. Standing for 1 hour Moderate difficulty o. Sitting for 1 hour A little bit of difficulty p. Running on even ground Extreme difficulty or unable to perform activity q. Running on uneven ground Extreme difficulty or unable to perform activity r. Making sharp turns while running fast Extreme difficulty or unable to perform activity s. Hopping Extreme difficulty or unable to perform activity t. Rolling over in bed A little bit of difficulty LEFI Score Lower Extremity Functional Index Score 37 Outpatient Therapy Assessment Impairments Problems/Impairmments Palpation Tenderness,Impaired Range of Motion,Impaired Strength,Impaired Transfers, Impaired Gait Pattern,Impaired Walking,Impaired Standing, Impaired Sitting,Impaired Driving,Impaired Lifting, Impaired Dressing,Impaired Household Care,Impaired Recreational Activities, Subjective C/O Pain Clinical Impression Consistent with Diagnosis Yes Short Term Goals Number of Weeks 2 Decrease Subjective C/O Pain Yes: 5/10 at worst Patient to be Ind w/ HEP Yes Mcc Goals Number of Weeks 4-6 Decreased Palpation Tenderness Yes: 1/4 Increase Range of Motion Yes: LS/B hip WNL Increase Strength Yes: BLE core 5/5 Increase Ability to Walk Yes: 30 min without difficulty Increase Ability to Stand Yes Improve Ability For Household Care Yes Improve LEFI Score Yes: >60 Outpatient Therapy Plan of Care Treatment Plan May Include Therapeutic Exercise Including Home Yes Exercise Program Manual Therapy Techniques Yes Neuromuscular Re-education Yes Therapeutic Activities to Return to Yes Previous Functional/Work Level Gait Training Yes ADL/Self Care Education Yes Mechanical Traction Yes Dry Needling Yes Thermal Modalities Yes Electrical Stimulation Yes Ultrasound/Phonophoresis Yes Iontophoresis Yes Orthotics/Bracing/Splinting Yes Vasopneumatic Compression Pump Yes Massage Yes Eval/Re-Eval Yes Frequency Times per week 2-3 Duration Number of Weeks 4-6 Addendums This patient is a candidate for social No or vocational rehab? Patient/Guardian verbally acknowledges Yes understanding of treatment program and consents to further treatment? Patient/Guardian verbally acknowledges Yes understanding of diagnosis, prognosis and goals for treatment? Eval Complexity PT Charges 78306 - Moderate Complexity Shoulder/Elbow Eval Shoulder Objective Measurements Elbow Objective Measurements PHYSICIAN CERTIFICATION: I certify the specified therapy services for Maximo Espitia are required, authorized, and reviewed every 30 days.
== END 2024-09-01 23:59 | disposition home or self-care (01) ==
LOC: PT 11:00
PROVIDERS: Visit Provider Internal Medicine Adolescent Medicine
DX: M70.61 Trochanteric bursitis, right hip (principal); M70.62 Trochanteric bursitis, left hip
CPT/HCPCS: 97012; 97014; 97110; 97163; 97530; G0283

== ENCOUNTER 2024-09-15 11:05 | Outpatient (CLI) | payer BC, SELFPAY ==
[2024-09-15 12:22] LABS: Albumin Level 4.2 g/dl (3.5-5.0); Chloride 107 mmol/L (98-107); Potassium 4.6 mmoL/L (3.5-5.1); Sodium 139 mmol/L (136-145)
[2024-09-15 12:24] LABS: Bilirubin,Unconjugated 0.3 mg/dL (0.0-1.1); Blood Urea Nitrogen 33 mg/dl (9-20); Estimated Glomerular Filt Rate 57 ml/min (>60); GFR (African American) 69 ML/MIN (>60)
[2024-09-15 12:25] LABS: Alanine Aminotransferase 26 U/L (12-78); Alkaline Phosphatase 70 U/L (38-126); Anion Gap 12.6 mEq/L (5-15); Aspartate Amino Transferase 27 U/L (17-59); Bilirubin,Indirect 0.3 mg/dL (0.0-0.9); Bilirubin,Total 0.3 mg/dl (0.2-1.3); Calcium 9.3 mg/dl (8.4-10.2); Carbon Dioxide 24 mmol/L (22.0-30.0); Cholesterol 230 mg/dl (140-200); Glucose 108 mg/dl (74-100); HDL Cholesterol 35 mg/dl (40-60); Triglycerides 280 mg/dl (30-150); VLDL Cholesterol 56 mg/dL (0-40)
[2024-09-15 12:26] LABS: Chol/HDL Ratio 6.6 (1-3.5)
[2024-09-15 12:39] LABS: Direct LDL Cholesterol 143.37 mg/dL (100-129)
== END 2024-09-15 23:59 | disposition home or self-care (01) ==
LOC: LAB 11:06
PROVIDERS: PCP Internal Medicine Adolescent Medicine; Visit Provider Nurse Practitioner
DX: R29.90 Unspecified symptoms and signs involving the nervous system (principal); I50.30 Unspecified diastolic (congestive) heart failure; E78.2 Mixed hyperlipidemia; I25.118 Atherosclerotic heart disease of native coronary artery with other forms of angina pectoris; I10 Essential (primary) hypertension; Z95.5 Presence of coronary angioplasty implant and graft
CPT/HCPCS: 36415; 80048; 80061; 80076; 83735

== ENCOUNTER 2024-09-19 09:08 | Outpatient (CLI) | payer BC, SELFPAY ==
--- NOTE | 2024-09-19 09:10 | CA_ITS ---
APPROVED REPORT EXAM: Comprehensive 2D, Doppler, and color-flow Echocardiogram Golf Starter And Ranger: Traci Sewell RDCS Ht: 5 ft 11 in Wt: 396lbs BSA: 2.82 BP: 137/56 mmHg Indications: SOA,HTN,SMOKER,HLP,CAD MORBID OBESITY M-Mode Dimensions RVDd 2.14 cm (0.9-2.6) LA Diam 4.17 cm (1.9-4.0) LVDd 6.58 cm (3.5-5.7) LVDs 4.84 cm (3.5-5.7) IVSd 0.89 cm (0.6-1.1) PWd 0.98 cm (0.6-1.1) EF (Teich) 50.70% FS 26.40% EDV (Teich) 222.10 mL ESV (Teich) 109.60 mL LV Diastology E Decel Time 323 (160-240 msec) E/A Ratio 0.7 Mitral Valve MV E Max Hair. 61.0 (40-130 cm/s) MV A Velocity 84.0 (40-130 cm/s) E/A Ratio 0.73 MV PHT 95.0 ms Left Ventricle The left ventricle is normal size. The left ventricular systolic function is normal. The left ventricular ejection fraction is within the normal range. There is increased level thickness. There is normal LV segmental wall motion. The left ventricular diastolic function is normal. LVEF is 60%. Right Ventricle The right ventricle is normal size. The right ventricular systolic function is normal. Atria The left atrium size is normal. The right atrium size is normal. There is no Doppler evidence of interatrial shunt. Aortic Valve The aortic valve is mildly thickened. There is no aortic valvular stenosis. No aortic regurgitation is present. Mitral Valve The mitral valve is normal in structure. No evidence of mitral valve stenosis. Trace mitral regurgitation. Tricuspid Valve Tricuspid valve is grossly normal in structure and function. Trace tricuspid regurgitation. There is insufficient TR jet to estimate RVSP. Pulmonic Valve The pulmonary valve is normal in structure. Trace pulmonic regurgitation. Great Vessels The aortic root is normal in size. IVC is normal in size and collapses >50% with inspiration. Pericardium There is no pericardial effusion. An epicardial fat pad is present. Other Information Study Quality: Fair Conclusion Normal biventricular systolic function. No significant valvular stenosis or regurgitation. Electronically signed by : Yolanda Portillo MD 09/25/2024 11:07:04
--- NOTE | 2024-09-19 09:36 | CT_ITS ---
FINAL REPORT CLINICAL HISTORY: Neck tightness, shortness of breath, visual disturbances, faci COMPARISON: None FINDINGS: CT NECK ANGIO, WITHOUT AND WITH CONTRAST TECHNIQUE: Thin section axial CT with contrast with multiplanar 3D MIP reconstruction. This study was performed with techniques to keep radiation doses as low as reasonably achievable, (ALARA). Individualized dose reduction techniques using automated exposure control or adjustment of mA and/or kV according to the patient''s size were employed. NASCET criteria and technique was utilized during interpretation. FINDINGS: Aortic arch: Arch shows no significant narrowing. Great vessel origins are widely patent. The left vertebral artery arises directly from the aortic arch as a normal variant. Right carotid: No significant stenosis is seen of the cervical common or internal carotid artery. Left carotid: There is age-indeterminate occlusion of the left internal carotid artery extending from the origin into the skull base. The left common carotid artery is widely patent. Vertebrals: Left vertebral artery is dominant. No significant stenosis is present. 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 Correlate with any clinical history. MRI brain follow-up recommended. This study was performed using automated techniques to achieve radiation exposure as low as reasonably Reviewed, Interpreted and Dictated by Marce Don MD Transcribed by Josefina Marroquin Authenticated and [facility]
--- NOTE | 2024-09-19 09:36 | CT_ITS ---
FINAL REPORT TECHNIQUE: Noncontrast exam. Coronal and sagittal images were obtained and reviewed. This study was performed with techniques to keep radiation doses as low as reasonably achievable, (ALARA). Individualized dose reduction techniques using automated exposure control or adjustment of mA and/or kV according to the patient''s size were employed. CLINICAL HISTORY: Neck tightness, dyspnea, visual disturbances, faci COMPARISON: 03/10/2024 FINDINGS: No abnormal density is seen. Ventricles are normal. There is no hemorrhage. No mass effect is seen. Bone windows show no evidence of fracture. IMPRESSION: No acute findings Reviewed, Interpreted and Dictated by Marce Don MD Transcribed by Josefina Marroquin Authenticated and . [facility]
--- NOTE | 2024-09-19 09:36 | CT_ITS ---
FINAL REPORT CLINICAL HISTORY: Neck tightness, shortness of breath, visual disturbances, faci COMPARISON: None FINDINGS: CTA HEAD TECHNIQUE: Thin section axial CT with contrast with 3D MIP reconstruction This study was performed with techniques to keep radiation doses as low as reasonably achievable, (ALARA). Individualized dose reduction techniques using automated exposure control or adjustment of mA and/or kV according to the patient''s size were employed. FINDINGS: Distal right ICA and right anterior circulation are normal. There is reconstitution of post cavernous left ICA through collateral vessels. Left MCA and GRICELDA are intact. Posterior circulation is normal. 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 Remaining central intracranial circulation unremarkable. This study was performed using automated techniques to achieve radiation exposure as low as reasonably achievable Reviewed, Interpreted and Dictated by Marce Don MD Transcribed by Josefina Marroquin Authenticated and [facility]
[2024-09-19] MEDS: IOPAMIDOL-370 (76%);100ML BOTTLE 100 ML IV (10:16)
[2024-09-19] MEDS: SODIUM CHLORIDE 0.9% 10ML SYR (RAD ONLY) 10 ML IV (10:16)
[2024-09-19] MEDS: 0.9 % SODIUM CHLORIDE 50 ML VIAL IV (10:16)
== END 2024-09-19 23:59 | disposition home or self-care (01) ==
LOC: RT 09:09
PROVIDERS: PCP Internal Medicine Adolescent Medicine; Visit Provider Nurse Practitioner
DX: I11.0 Hypertensive heart disease with heart failure (principal); I25.118 Atherosclerotic heart disease of native coronary artery with other forms of angina pectoris; I50.32 Chronic diastolic (congestive) heart failure; Z95.5 Presence of coronary angioplasty implant and graft; E78.2 Mixed hyperlipidemia; R60.0 Localized edema; G47.33 Obstructive sleep apnea (adult) (pediatric)
CPT/HCPCS: 70450; 70496; 70498; 93306; Q9967

== ENCOUNTER 2024-10-20 13:43 | Outpatient (CLI) | payer BC, SELFPAY ==
--- NOTE | 2024-10-20 13:44 | MR_ITS ---
FINAL REPORT TECHNIQUE: Multiplanar MR, without and with gadolinium enhancement CLINICAL HISTORY: neck pain, neck tightness, dyspnea, visual distur 30 ml prohance COMPARISON: None FINDINGS: Diffusion sequences show no signal abnormality to indicate acute infarct. There are a few areas of increased signal in the frontal lobes bilaterally, slightly more prominent on the left than on the right, consistent with T2 shine through. No mass, hemorrhage or edema is seen. Ventricles are normal. There are numerous foci of periventricular white matter signal change, which are ovoid, and could represent either demyelination or moderate chronic microvascular disease, greater on the left than on the right. Following contrast administration, no mass or abnormal enhancement is seen. IMPRESSION: Significant periventricular white matter changes bilaterally, greater on the left than on the right. These most likely represent chronic microvascular disease, although demyelination cannot be excluded. No acute intracranial abnormality or enhancement is identified. Reviewed, Interpreted and Dictated by Marce Don MD Transcribed by Priscila Gates Authenticated and [facility]
[2024-10-20 14:40] LABS: Blood Urea Nitrogen 26 mg/dl (9-20); Estimated Glomerular Filt Rate 52 ml/min (>60); GFR (African American) 63 ML/MIN (>60)
[2024-10-20] MEDS: SODIUM CHLORIDE 0.9% 10ML SYR (RAD ONLY) 10 ML IV (16:18)
[2024-10-20] MEDS: GADOTERIDOL INJ 20ML SYRINGE 20 ML IV (16:19)
[2024-10-20] MEDS: GADOTERIDOL INJ 10ML SYRINGE 10 ML IV (16:19)
== END 2024-10-20 23:59 | disposition home or self-care (01) ==
LOC: RAD 13:44
PROVIDERS: PCP Internal Medicine Adolescent Medicine; Visit Provider Nurse Practitioner
DX: I20.89 Other forms of angina pectoris (principal); R06.09 Other forms of dyspnea; R93.89 Abnormal findings on diagnostic imaging of other specified body structures; R29.90 Unspecified symptoms and signs involving the nervous system; R55 Syncope and collapse
CPT/HCPCS: 36415; 70553; 82565; 84520; A9576

== ENCOUNTER 2024-10-27 07:46 | Outpatient (CLI) | payer BC, SELFPAY | END 2024-10-27 23:59 | disposition home or self-care (01) | LOC: RT 07:46 | PROVIDERS: PCP Internal Medicine Adolescent Medicine; Visit Provider Specialist | DX: R55 Syncope and collapse (principal); R05.4 Cough syncope; G47.33 Obstructive sleep apnea (adult) (pediatric) | CPT/HCPCS: 94010; 94727; 94729 ==

== ENCOUNTER 2025-07-15 14:00 | Outpatient (CLI) | payer BC, SELFPAY ==
[2025-07-15 15:58] LABS: Alanine Aminotransferase 37 U/L (12-78); Albumin Level 4.4 g/dl (3.5-5.0); Alkaline Phosphatase 80 U/L (38-126); Aspartate Amino Transferase 31 U/L (17-59); Bilirubin,Direct 0.1 mg/dl (0.0-0.4); Bilirubin,Indirect 0.3 mg/dL (0.0-0.9); Bilirubin,Total 0.4 mg/dl (0.2-1.3); Bilirubin,Unconjugated 0.3 mg/dL (0.0-1.1); Cholesterol 189 mg/dl (140-200); HDL Cholesterol 43 mg/dl (40-60); Total Protein,Serum 7.7 g/dl (6.3-8.2); Triglycerides 227 mg/dl (30-150)
[2025-07-15 18:20] LABS: Hemoglobin A1C 6.2 % (4.0-6.0)
== END 2025-07-15 23:59 | disposition home or self-care (01) ==
PROVIDERS: PCP Internal Medicine Adolescent Medicine; Visit Provider Nurse Practitioner
DX: I25.118 Atherosclerotic heart disease of native coronary artery with other forms of angina pectoris (principal); I10 Essential (primary) hypertension; E78.2 Mixed hyperlipidemia
CPT/HCPCS: 36415; 80061; 80076; 83036

== ENCOUNTER 2025-07-22 12:44 | Outpatient (CLI) | payer BC, SELFPAY ==
--- OUTSIDE RECORDS SUMMARY | 2024-11-08 16:30 | XMS_ITS ---
Author Organization [facility] Address [address] [place], [place] [address] Care Team Providers Care Plater Supervisor Name Role Phone Tej Hebert Primary Care Provider [phone] Tej Hebert Unavailable Unavailable Migration, Provider Unavailable Unavailable Allergies Allergen (clinical drug ingredient) Drug/Non Drug Allergy documented on EMR Reaction Allergy Type Onset Date Status Substance with 9-khtrrqh-7-methylglu taryl-coenzyme A reductase inhibitor mechanism of action (substance) Statins muscle cramps Drug Allergy [facility] Encounter Medications Medication SIG (Take, Route, Frequency, Duration) Notes Start Date End Date Status SEMGLEE 100 UNITS/ML 15UNITS SUBCUTANEOUSLY ONCE A DAY; Duration: 30 DAYS *Please review for potential replacement for e-prescription and drug interaction check* 10/22/2024 Active Mounjaro 5 MG/0.5 ML 5MG SUBCUTANEOUSLY ONCE A WEEK; Duration: 90 DAYS *Please review and pick correct strength-formulat ion [facility] options. If intended option is not shown, discontinue and re-order from Quick Search* 10/22/2024 Active Levothyroxine Sodium 200 MCG 1 tab(s) orally once a day; Duration: 30 day(s) Active Jardiance 25 MG 1 tab(s) orally once a day (in the morning); Duration: 90 days Active Bumetanide 2 MG 1 tab(s) orally twice a day Active COMFORT EZ PEN NEEDLES 32G X 5, 100 EA - DIRECTED ONCE A DAY; Duration: 100 DAYS *Please review for potential replacement for e-prescription and drug interaction check* Active ONE TOUCH VEREO TEST STRIPS N/A 1 FINGERSTICK 4 TIMES A DAY; Duration: 25 DAYS *Please review for potential replacement for e-prescription and drug interaction check* 09/19/2022 Active Indomethacin 50 MG 1 cap(s) orally 3 times a day as needed for Gout pain; Duration: 14 day(s) 03/15/2022 Active Losartan Potassium 100 MG 1 tab(s) orally once a day; Duration: 30 days Active ONE TOUCH DELICA LANCET 33G 1 4 TIMES A DAY; Duration: 25 DAYS *Please review for potential replacement for e-prescription and drug interaction check* Active Nitroglycerin 0.4 MG 1 tab(s) sublingually every 5 mins prn Active Metoprolol Succinate ER 100 MG 1 tab(s) orally once a day; Duration: 30 day(s) Active Clopidogrel Bisulfate 75 MG 1 tab(s) orally once a day; Duration: 30 day(s) Active Aspirin 81 MG 1 tab(s) orally once a day; Duration: 30 day(s) Active Isosorbide Mononitrate ER 60 MG 1 tab(s) orally once a day (in the morning); Duration: 30 day(s) Active Spironolactone 100 MG 1 tab(s) orally; Duration: 30 days once a day Active Encounters Encounter Location Date Provider Diagnosis [facility] [address] [facility] [address] [facility] [address] [place] [address] 11/08/2024 Provider Migration Plan Of Treatment Next Appt Details Provider Name:Tej Dawson Anup, 09/16/2025 11:45:00 AM, [address] [facility], [address], [place], [address], Progress Notes * Maximo RODRIGUEZDOB: [birth year] (59 yo M)Acc No.[id number]:11/08/2024 Patient: Maximo ANSARI Provider: Ysabel eddy Migration :1965 A ge:59 Y S ex:Male Date:11/08/2024 Address:[address] [place] [address], [id number] Pcp:Tej Hebert Subjective: * Chief Complaints: * 1 . Multum To Medispan Conversion Encounter. * Medical History: * Medications: T aking Bumetanide 2 MG Tablet 1 tab(s) orally twice a day , Taking Spironolactone 100 MG Tablet 1 tab(s) orally , Notes to Pharmacist: once a day, Taking Isosorbide Mononitrate ER 60 MG Tablet Extended Release 24 Hour 1 tab(s) orally once a day (in the morning) , Taking Clopidogrel Bisulfate 75 MG Tablet 1 tab(s) orally once a day , Taking Metoprolol Succinate ER 100 MG Tablet Extended Release 24 Hour 1 tab(s) orally once a day , Taking Nitroglycerin 0.4 MG Tablet Sublingual 1 tab(s) sublingually every 5 mins prn , Taking Aspirin 81 MG Tablet Delayed Release 1 tab(s) orally once a day , Taking Indomethacin 50 MG Capsule 1 cap(s) orally 3 times a day as needed for Gout pain , Taking ONE TOUCH VEREO TEST STRIPS N/A N/A 1 FINGERSTICK 4 TIMES A DAY , Notes to Pharmacist: *Please review for potential replacement for e-prescription and drug interaction check*, Taking COMFORT EZ PEN NEEDLES 32G X 5, 100 EA - DIRECTED ONCE A DAY , Notes to Pharmacist: *Please review for potential replacement for e-prescription and drug interaction check*, Taking ONE TOUCH DELICA LANCET 33G 1 4 TIMES A DAY , Notes to Pharmacist: *Please review for potential replacement for e-prescription and drug interaction check*, Taking Losartan Potassium 100 MG Tablet 1 tab(s) orally once a day , Taking Jardiance 25 MG Tablet 1 tab(s) orally once a day (in the morning) , Taking Levothyroxine Sodium 200 MCG Tablet 1 tab(s) orally once a day , Taking Mounjaro 5 MG/0.5 ML SOLUTION 5MG SUBCUTANEOUSLY ONCE A WEEK , Notes to Pharmacist: *Please review and pick correct strength[facility]ulation [facility]. If intended option is not shown, discontinue and re-order from Quick Search*, Taking SEMGLEE 100 UNITS/ML SOLUTION 15UNITS SUBCUTANEOUSLY ONCE A DAY , Notes to Pharmacist: *Please review for potential replacement for e-prescription and drug interaction check* * Allergies: S tatins: muscle cramps - Side Effects. Objective: * Vitals: Assessment: Plan: * Treatment: * * Electronic signature of Prov ider Migration on 07/22/2025 at 01:32 PM EST Sign off status: Pending * Provider: Ysabel eddy Migration Date: 0 11/08/2024 Generated for Surjit sullivan/Magali/Stephen on: 1 09/22/2024 01:32 PM EST
--- OUTSIDE RECORDS SUMMARY | 2025-07-01 05:15 | XMS_ITS ---
Author Organization [facility] Address [address] [facility] [address] [facility] [address] [place] [address] Care Team Providers Care Turf Farm Worker Name Role Phone Tej Hebert Primary Care Provider [phone] Tej Hebert Unavailable Unavailable REASON FOR VISIT 6 Week F/U Encounters Encounter Location Date Provider Diagnosis [facility] [address] [facility] [address] [place] [address] 07/01/2025 Tej Hebert Plan Of Treatment Next Appt Details Provider Name:Tej Hebert, 09/16/2025 11:45:00 AM, [address] [facility], [address], [place], [address], Progress Notes * Maximo RODRIGUEZDOB: [birth year] (59 yo M)Acc No.[id number]:07/01/2025 Progress Notes Patient: Maximo ANSARI Provider: Magy Hebert MD :1965 A ge:59 Y S ex:Male Date:07/01/2025 Address:[address], [id number] Subjective: * Chief Complaints: * 1 . 6 Week F/U. * Medical History: Objective: * Vitals: Assessment: Plan: * Treatment: * * Electronic signature of Malick Hebert MD FAAP on 07/22/2025 at 01:31 PM EST Sign off status: Pending * Provider: Magy Hebert MD Date: 08/31/2024 Generated for Surjit sullivan/Magali/Stephen on: 09/22/2024 01:31 PM EST
--- OUTSIDE RECORDS SUMMARY | 2025-07-22 05:00 | XMS_ITS ---
Author Organization [facility] D RO[facility] Address [address] [place] [address] Care Team Providers Care Superintendent [employer] Name Role Phone Tej Hebert Primary Care Provider Tej Hebert Unavailable Unavailable Allergies Allergen (clinical drug ingredient) Drug/Non Drug Allergy documented on EMR Reaction Allergy Type Onset Date Status Substance with 1-jrqwemd-7-methylglu taryl-coenzyme A reductase inhibitor mechanism of action (substance) Statins muscle cramps Drug Allergy Active REASON FOR VISIT 6 wk FU Medications Medication SIG (Take, Route, Frequency, Duration) Notes Start Date End Date Status Losartan Potassium 100 mg TAKE ONE TABLE T BY MOUTH EVERY DAY; Duration: 30 Active Pantoprazole Sodium 40 mg TAKE ONE TABLE T BY MOUTH EVERY EVENING; Duration: 30 prn Active Jardiance 25 mg TAKE ONE TABLET BY MOUTH EVERY DAY IN THE MORNING; Duration: 90 Active Levothyroxine Sodium 200 mcg TAKE ONE TABLET BY MOUTH EVERY DAY; Duration: 30 Active Aspirin 81 MG 1 tab(s) orally once a day; Duration: 30 day(s) Active Indomethacin 50 MG 1 cap(s) orally 3 times a day as needed for Gout pain; Duration: 14 day(s) 03/15/2022 Active COMFORT EZ PEN NEEDLES 32G X 5, 100 EA once a day Active OneTouch Delica Plus [id number] - USE TO test blood sugar FOUR TIMES DAILY; Duration: 25 Active ONE TOUCH VEREO TEST STRIPS N/A 1 4 TIMES A DAY; Duration: 25 days DX: E11.59 09/19/2022 Active Isosorbide Mononitrate ER 60 MG 1 tab(s) orally once a day (in the morning); Duration: 30 day(s) Active Clopidogrel Bisulfate 75 MG 1 tab(s) orally once a day; Duration: 30 day(s) Active Metoprolol Succinate ER 100 MG 1 tab(s) orally once a day; Duration: 30 day(s) Active Nitroglycerin 0.4 MG 1 tab(s) sublingual ly every 5 mins prn Active Spironolactone 100 MG 1 tab(s) orally; Duration: 30 days once a day Active Leqvio 284 MG/1.5ML 1.5 mL Subcutaneous every 6 months Active Bumetanide 2 MG 1 tab(s) orally twic e a day Active Soliqua 100-33 UNT-MCG/ML 60units Subcut aneous daily; Duration: 30 days 05/18/2025 Active Topiramate 25 MG 1 tablet Orally Once a day; Duration: 90 days 07/22/2025 Active Social History Tobacco Use: Social History Observation Description Date Details (start date - stop date) Former Smoker NA - NA Tobacco Control (Standard) Question Answer Notes Tobacco use: Former smoker How long has it been since you last smoked? 1-3 months Problems Problem Type SNOMED Code ICD Code Onset Dates Problem Status W/U Status Risk Notes Problem Severe obesity (690336547610 [id number]) Severe obesity (E66.01) Active confirmed Vital Signs Temperature 97.6 degrees Fahrenheit 07/22/20 25 Blood pressure systolic 100 mm Hg 07/22/20 25 Blood pressure diastolic 52 mm Hg 025 Heart Rate 94 /min 07/22/2025 Height 5 ft 11 in in 07/22/2025 Weight 410.4 lbs 07/22/2025 BMI 57.23 kg/m2 07/22/2025 Encounters Encounter Location Date Provider Diagnosis [facility] [address] [facility] [address] [place] [id number] 07/22/2025 Tej Hebert Type 2 diabetes mellitus with hyperglycemia, without long-term current use of insulin E11.65 ; Mixed hyperlipidemia E78.2 and Severe obesity E66.01 Assessments Encounter Date Diagnosis (ICD Code) Assessment Notes Treatment Notes Treatment Clinical Notes Section Notes 07/22/2025 Type 2 diabetes mellitus with hyperglycemia, without long-term current use of insulin (ICD-10 - E11.65) Increase Soliqua to 60U qAM and RTC in 6 weeks for repeat labs including A1c, RFP. Last A1c = 6.2%, at goal. 07/22/2025 Mixed hyperlipidemia (ICD-10 - E78.2) Continue current regimen. LDL improved on labs at [facility] last week, 119. Did not get liver monitoring or kidney monitoring, will do this in 2 months. 07/22/2025 Severe obesity (ICD-10 - E66.01) Increase Soliqua as above and trial Topiramate at low dose. Discussed other lifestyle modifications including diet w/ calorie tracking and exercise. Plan Of Treatment Medication Medication Name Sig Start Date Stop Date Notes Soliqua 100-33 UNT-MCG/ML 60units Subcut aneous daily; Duration: 30 days 05/18/2025 Topiramate 25 MG 1 tablet Orally Once a day; Duration: 90 days 07/22/2025 Treatment Notes Assessment Notes Type 2 diabetes mellitus wit h hyperglycemia, without long-term current use of insulin Increase Soliqua to 60U qAM and RTC in 6 weeks for repeat labs including A1c, RFP. Last A1c = 6.2%, at goal. Mixed hyperlipidemia Continue current regimen. LDL improved on labs at [facility] last week, 119. Did not get liver monitoring or kidney monitoring, will do this in 2 months. Severe obesity Increase Soliqua as above and trial Topiramate at low dose. Discussed other lifestyle modifications including diet w/ calorie tracking and exercise. Next Appt Details Follow Up: prn, Reason: Provider Name:Tej Hebert, 09/16/2025 11:45:00 AM, [address] [facility], [address], [place], [address], Progress Notes * Maximo RODRIGUEZDOB: [birth year] (59 yo M)Acc No.[id number]:07/22/2025 Progress Notes Patient: Maximo ANSARI Provider: Magy Hebert MD :1965 A ge:59 Y S ex:Male Date:07/22/2025 Address:[address], [place], [id number] Subjective: * Chief Complaints: * 1 . 6 wk FU. * HPI: g en: Patient presents for scheduled six week medication follow-up. Last visit, stopped Mounjaro due to GI side effects and started Soliqua. He has been tolerating this well, although has had significant weight gain since last visit (394 410 lbs). 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 Tried PT previously, but reliably later in the day would have L/D so stopped going and is not interested in returning. Wants to discuss other options for losing weight. * Medical History: H eart Attack, HTN, Hyperlipidemia, Umbilical Hernia. * Surgical History: 2 cardiac stents 2016, 1 cardiac stent 2018, left rotator cuff repair 10/2021, Colonoscopy s/p diverticulitis, negative for polys 2013, lt shoulder surgery 2021, Heart Cath 05/2024, Hernia Repair 07/2024. * Hospitalization/Major Diagno stic Procedure: 2 cardiac stents 2016, lt shoulder surgery 2021. * Family History: F ather: alive. M other: alive. P aternal Grand Father: . P aternal Grand Mother: . M aternal Grand Father: . M aternal Grand Mother: alive. P aternal uncle: alive. P aternal aunt: alive, 2 . M aternal uncle: alive. M aternal aunt: . S iblings: alive, sister-heart attack, diagnosed with Heart Disease. C hildren: alive, oldest -cerebal palsy. 1 brother(s) , 1 sister(s) - healthy. 2 daughter(s) . . * Social History: R ecreational drug use: no. Exercise: yes. Home smoke detector use: yes. Caffeine: no. Living Will: No. Alcohol: socially, Type: , Frequency: ,Years: , Determination:. Sexually active: yes. Travel outside [place]: no. Occupation: Disabled. Tobacco Control (Standard) T obacco use: F ormer smoker, H ow long has it been since you last smoked? 1 -3 months. * Medications: T aking Leqvio 284 MG/1.5ML Solution Prefilled Syringe 1.5 mL Subcutaneous every 6 months , Taking Bumetanide 2 MG Tablet 1 tab(s) orally [...] as needed for Gout pain , Taking COMFORT EZ PEN NEEDLES 32G X 5, 100 EA once a day , Taking OneTouch Delica Plus [id number] - Miscellaneous USE TO test blood sugar FOUR TIMES DAILY , Taking ONE TOUCH VEREO TEST STRIPS N/A N/A 1 4 TIMES A DAY , Notes to Pharmacist: DX: E11.59, Taking Soliqua 100-33 UNT- MCG/ML Solution Pen-injector 40 units Subcutaneous daily , Taking Losartan Potassium 100 mg Tablet TAKE ONE TABLET BY MOUTH EVERY DAY , Taking Pantoprazole Sodium 40 mg Tablet Delayed Release TAKE ONE TABLET BY MOUTH EVERY EVENING , Notes to Pharmacist: prn, Taking Jardiance 25 mg Tablet TAKE ONE TABLET BY MOUTH EVERY DAY IN THE MORNING , Taking Levothyroxine Sodium 200 mcg Tablet TAKE ONE TABLET BY MOUTH EVERY DAY , Discontinued Basaglar KwikPen 100 UNIT/ML Solution Pen-injector INJECT UP TO 50 UNITS SUBCUTANEOUSLY EVERY DAY , Medication List reviewed and reconciled with the patient * Allergies: S tatins: muscle cramps - Side Effects. Objective: * Vitals: N urse: jl, Pain: 7, Temp: 97.6, RR: 20, HR: 94, BP: 100/52, Ht: 5 ft 11 in, Wt: 410.4, BMI:57.23. * Examination: G eneral Examination: General N AD, obese. Heart: R RR, no appreciable m/r/g. Lungs: C TAB. Peripheral pulses: R adial pulses 2+, dorsalis pedis pulses difficult to palpate. Assessment: * Assessment: 1. T ype 2 diabetes mellitus with hyperglycemia, without long-term current use of insulin - E11.65 (Primary) 2 . M ixed hyperlipidemia - E78.2 3 . S evere obesity - E66.01 Plan: * Treatment: 2. M ixed hyperlipidemia Notes: Continue current regimen. LDL improved on labs at [facility] last week, 119. Did not get liver monitoring or kidney monitoring, will do this in 2 months. 3. S evere obesity Start Topiramate Tablet, 25 MG, 1 tablet, Orally, Once a day, 90 days, 90 Tablet, Refills 1. ? Notes: Increase Soliqua as above and trial Topiramate at low dose. Discussed other lifestyle modifications including diet w/ calorie tracking and exercise. * Follow Up: p rn * * Sign off status: Completed true * Provider: Magy Hebert MD Date: 09/22/2024 Generated for Surjit sullivan/Magali/eTransmitting on: 09/22/2024 01:31 PM EST History and Physical Notes * HPI (History of Present Illness) Category Sub-Category Detail Notes Category Not es gen Patient present s for scheduled six week medication follow-up. Last visit, stopped Mounjaro due to GI side effects and started Soliqua. He has been tolerating this well, although has had significant weight gain since last visit (394 --> 410 lbs). 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 Tried PT previously, but reliably later in the day would have L/D so stopped going and is not interested in returning. Wants to discuss other options for losing weight. Examination Category Sub-Category Detail Notes Category Not es General Examination Heart: RRR, no appreciable m /r/g Lungs: CTAB Peripheral pulses: Radial pulses 2+, do rsalis pedis pulses difficult to palpate General NAD, obese
--- NOTE | 2025-07-22 13:00 | CA_ITS ---
FINAL REPORT TECHNIQUE: Nicolas scale, color and spectral doppler images of the bilateral carotid arteries were obtained. CLINICAL HISTORY: KARAN,HTN,HLD,OBESITY,KNOWN OCCLUSION OF LEFT ICA FINDINGS: Peak systolic velocity in the right internal carotid artery is 73 cm/sec. The internal carotid to common carotid artery ratio is 1.8. There is no significant carotid artery stenosis. There is mild plaque formation. The right vertebral artery is normal in direction. The left internal carotid artery is occluded. The internal carotid to common carotid artery ratio is 1.7. There is mild plaque formation of the common carotid artery. The left vertebral artery is normal in direction. IMPRESSION: Less than 50% stenosis on the right. Left internal carotid artery is occluded. Please refer to CTA dated 09/19/2024. Reviewed, Interpreted and Dictated by Jessica Schaefer MD Transcribed by Natty Flores Authenticated and [facility]
--- OUTSIDE RECORDS SUMMARY | 2025-07-22 13:32 | XMS_ITS | Patient Health Record ---
Author Organization [facility] Address [address] [place] [address] Care Team Providers Care Mooner Name Role Phone Tej Hebert Primary Care Provider Tej Hebert Unavailable Unavailable Migration, Provider Unavailable Unavailable Allergies Allergen (clinical drug ingredient) Drug/Non Drug Allergy documented on EMR Reaction Allergy Type Onset Date Status Substance with 7-mbmivsm-0-methylglu taryl-coenzyme A reductase inhibitor mechanism of action (substance) Statins muscle cramps Drug Allergy Active Results Component Value Reference Range Notes HEMOGLOBIN A1c (496) Reviewed date:10/24/2024 10:02:13 AM Interpretation: Performing Lab:[facility] [id number] [facility] Maximo Richter Notes/Report: NON-FASTING; NON-FASTING HEMOGLOBIN A1c 6.4 <5.7 % of total Hgb Currently, no consensus exists regarding use of hemoglobin A1c for diagnosis of diabetes for children. For someone without known diabetes, a hemoglobin [...] consistent with an increased risk of diabetes. BASIC METABOLIC PANEL (54813 ) Reviewed date:10/24/2024 10:02:13 AM Interpretation: Performing Lab:[facility], [facility] [id number], [facility] Maximo Richter Notes/Report: NON-FASTING; NON-FASTING GLUCOSE 91 65-99 mg/dL Fasting referen ce interval UREA NITROGEN (BUN) 20 7-25 mg/dL CREATININE 1.28 0.70-1.30 mg/dL EGFR 65 > OR = 60 mL/min/1.73m2 BUN/CREATININE RATIO SEE NOTE: 6-22 (calc) Not Reported: BUN and Creatinine are within reference range. SODIUM 137 135-146 mmol/L POTASSIUM 4.3 3.5-5.3 mmol/L CHLORIDE 101 98-110 mmol/L CARBON DIOXIDE 25 20-32 mmol/L CALCIUM 10.1 8.6-10.3 mg/dL Reason For Referral No Information Medications Medication SIG (Take, Route, Frequency, Duration) Notes Start Date End Date Status Aspirin 81 MG 1 tab(s) orally once a day; Duration: 30 day(s) Active Indomethacin 50 MG 1 cap(s) orally 3 times a day as needed for Gout pain; Duration: 14 day(s) 03/15/2022 Active COMFORT EZ PEN NEEDLES 32G X 5, 100 EA once a day Active Isosorbide Mononitrate ER 60 MG 1 tab(s) orally once a day (in the morning); Duration: 30 day(s) Active Losartan Potassium 100 mg TAKE ONE TABLE T BY MOUTH EVERY DAY; Duration: 30 Active Clopidogrel Bisulfate 75 MG 1 tab(s) orally once a day; Duration: 30 day(s) Active Pantoprazole Sodium 40 mg TAKE ONE TABLE T BY MOUTH EVERY EVENING; Duration: 30 prn Active Metoprolol Succinate ER 100 MG 1 tab(s) orally once a day; Duration: 30 day(s) Active Jardiance 25 mg TAKE ONE TABLET BY MOUTH EVERY DAY IN THE MORNING; Duration: 90 Active Nitroglycerin 0.4 MG 1 tab(s) sublingual ly every 5 mins prn Active Levothyroxine Sodium 200 mcg TAKE ONE TABLET BY MOUTH EVERY DAY; Duration: 30 Active Soliqua 100-33 UNT-MCG/ML 60units Subcut aneous daily; Duration: 30 days 05/18/2025 Active Topiramate 25 MG 1 tablet Orally Once a day; Duration: 90 days 07/22/2025 Active OneTouch Delica Plus [id number] - USE TO test blood sugar FOUR TIMES DAILY; Duration: 25 Active Leqvio 284 MG/1.5ML 1.5 mL Subcutaneous every 6 months Active ONE TOUCH VEREO TEST STRIPS N/A 1 4 TIMES A DAY; Duration: 25 days DX: E11.59 09/19/2022 Active Bumetanide 2 MG 1 tab(s) orally twic e a day Active Spironolactone 100 MG 1 tab(s) orally; Duration: 30 days once a day Active Social History Tobacco Use: Social History Observation Description Date Details (start date - stop date) Former Smoker NA - NA Tobacco Control (Standard) Question Answer Notes Tobacco use: Former smoker How long has it been since you last smoked? 1-3 months Problems Problem Type SNOMED Code ICD Code Onset Dates Problem Status W/U Status Risk Notes Problem Peripheral circulatory disorder associated with diabetes mellitus (483205333) Type 2 diabetes mellitus with other circulatory complications (E11.59) Active confirmed Problem Mixed hyperlipidemia (515822052) Mixed hyperlipidemia (E78.2) Active confirmed Problem Atherosclerotic heart disease of [place] coronary artery without angina pectoris (838817599075740) Atherosclerotic heart disease of [place] coronary artery without angina pectoris (I25.10) Active confirmed Problem Nicotine dependence (37054132) Personal history of nicotine dependence (Z87.891) Active confirmed Problem Morbid obesity (193363192) Morbid obesity (E66.01) Active confirmed Problem Long-term current use of insulin (122930772) 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) Active confirmed Problem 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, multiple joint involvement (M12.9) Active confirmed Problem Arthropathy (651459829) Arthritis involving multiple sites (M12.9) Active confirmed Problem Gastroesophageal reflux disease without esophagitis (391773967) Gastroesophageal reflux disease without esophagitis (K21.9) Active confirmed Problem Gouty arthritis (59543330) Gouty arthritis (M10.9) Active confirmed Problem Allergic rhinitis caused by pollen (03665298) Seasonal allergic rhinitis due to pollen (J30.1) Active confirmed Problem Primary hypertension (60141381) Primary hypertension (I10) Active confirmed Problem Acquired lymphedema of lower extremity (242320118) Acquired lymphedema of lower extremity (I89.0) Active confirmed Problem Severe obesity (79363306182320) Severe obesity (E66.01) Active confirmed Vital Signs Heart Rate 94 /min 07/22/2025 Temperature 97.6 degrees Fahrenheit 07/22/2025 Blood pressure diastolic 52 mm Hg 07/22/2025 Height 5 ft 11 in in 07/22/2025 Blood pressure systolic 100 mm Hg 07/22/2025 Weight 410.4 lbs 07/22/2025 BMI 57.23 kg/m2 07/22/2025 Encounters Encounter Location Date Provider Diagnosis [facility] [address] [place] [address] 11/08/2024 Provider Migration [facility] [address] [place] [address] 10/22/2024 Tej Hebert Primary hypertension I10 ; Morbid obesity E66.01 ; Type 2 diabetes mellitus with other circulatory complications E11.59 ; Dizziness R42 and Healthcare maintenance Z00.00 [facility] [address] [place] [address] 11/05/2024 Tej Hebert Type 2 diabetes cecile itus with other circulatory complications E11.59 ; Morbid obesity E66.01 ; Dizziness R42 and Dyspnea on exertion R06.09 [facility] [address] [place] [address] 01/05/2025 Tej Hebert Type 2 diabetes cecile itus with other circulatory complications E11.59 ; Morbid obesity E66.01 and Primary hypertension I10 [facility] [address] [place] [address] 03/09/2025 Tej Hebert Gastroesophageal ref lux disease without esophagitis K21.9 ; Drug-induced constipation K59.03 ; Bug bite with infection, initial encounter W57.XXXA ; Type 2 diabetes mellitus with other circulatory complications E11.59 and Morbid obesity E66.01 [facility] [address] [place] [address] 05/18/2025 Tej Hebert Type 2 diabetes cecile itus with other circulatory complications E11.59 [facility] [address] [place] [address] 07/22/2025 Tej Hebert Type 2 diabetes cecile itus with hyperglycemia, without long-term current use of insulin E11.65 ; Mixed hyperlipidemia E78.2 and Severe obesity E66.01 [facility] [address] [address] 10/22/2024 Tej Besson [facility] [address] [place] [address] 11/21/2024 Tej Besson [facility] [address] [place] [address] 01/05/2025 Tejyoshi Hebert Type 2 diabetes cecile itus with other circulatory complications E11.59 [facility] [address] [address] 01/26/2025 Tejyoshi Hebert Type 2 diabetes cecile itus with other circulatory complications E11.59 [facility] [address] [address] 02/02/2025 Tejyoshi Hebert Type 2 diabetes cecile itus with other circulatory complications E11.59 Assessments Encounter Date Diagnosis (ICD Code) Assessment Notes Treatment Notes Treatment Clinical Notes Section Notes 10/22/2024 Primary hypertension (ICD-10 - I10) BP well controlled in office today, continue current regimen. 11/05/2024 Type 2 diabetes mellitus with other circulatory complications (ICD-10 - E11.59) Tolerating mounjaro well. Counseled on dietary changes including avoiding sweets, particularly sweet tea in mornings, replace w a protein source. Will keep on 5 mg mounjaro for now, increase in 3 months if weight loss plateaus. 11/05/2024 Morbid obesity (ICD-10 - E66.01) Will continue Mounjaro, diet discussion as noted above 10/22/2024 Morbid obesity (ICD-10 - E66.01) Will start mounjaro today to help with A1c and obesity. Counseled on healthy diet and exercise. 01/05/2025 Type 2 diabetes mellitus with other circulatory complications (ICD-10 - E11.59) Try to dilute Mounjaro fairly rapidly to help with weight loss to help with all of his comorbid conditions including cardiovascular risk, significant hip pain and back pain. Congratulated on quitting smoking 01/05/2025 Morbid obesity (ICD-10 - E66.01) 01/05/2025 Type 2 diabetes mellitus with other circulatory complications (ICD-10 - E11.59) 01/26/2025 Type 2 diabetes mellitus with other circulatory complications (ICD-10 - E11.59) 02/02/2025 Type 2 diabetes mellitus with other circulatory complications (ICD-10 - E11.59) 05/18/2025 Type 2 diabetes mellitus with other circulatory complications (ICD-10 - E11.59) PT shravan be swutched to Seliqua 25 units due to tolerability. HE states he was on this before and it worked. We will stop the Mounjaro and Basaglar and start Seliqua 25 units in the morning. Was told to use the Basaglar if sugars were still high. Pt will follow-up in 6 weeks to re-evaluate medication. 07/22/2025 Mixed hyperlipidemia (ICD-10 - E78.2) Continue current regimen. LDL improved on labs at [facility] last week, 119. Did not get liver monitoring or kidney monitoring, will do this in 2 months. 07/22/2025 Type 2 diabetes mellitus with hyperglycemia, without long-term current use of insulin (ICD-10 - E11.65) Increase Soliqua to 60U qAM and RTC in 6 weeks for repeat labs including A1c, RFP. Last A1c = 6.2%, at goal. 03/09/2025 Gastroesophageal reflux disease without esophagitis (ICD-10 - K21.9) Start PPI each night 03/09/2025 Drug-induced constipation (ICD-10 - K59.03) Recommend to supplement diet with metamucil daily 03/09/2025 Bug bite with infection, initial encounter (ICD-10 - W57.XXXA) Use warm compress twice daily then Start Mupirocin ointment BID 10/22/2024 Type 2 diabetes mellitus with other circulatory complications (ICD-10 - E11.59) Will stop soliqua, start basal insulin with mounjaro 5 mg weekly. obtain A1c and BMP today. 07/22/2025 Severe obesity (ICD-10 - E66.01) Increase Soliqua as above and trial Topiramate at low dose. Discussed other lifestyle modifications including diet w/ calorie tracking and exercise. 01/05/2025 Primary hypertension (ICD-10 - I10) Better blood pressure control, no change in plans 11/05/2024 Dizziness (ICD-10 - R42) Will try to obtain PFT results. Patient has follow up with neurology next month. 11/05/2024 Dyspnea on exertion (ICD-10 - R06.09) I reviewed PFTs and called patient. PFT showed no evidence of obstructive disease or asthma, show mild restrictive pattern, possibly related to his obesity. Patient notes that he has been cigarette free now for 18 days, I have encouraged him in this effort. Follow-up in 2 months to reassess weight and possibly and consider increasing Mounjaro 10/22/2024 Dizziness (ICD-10 - R42) will obtain labs today. Seeing neuro, cards, vasc surgery, pulm. Will have follow up in a few weeks after PFTs. 03/09/2025 Type 2 diabetes mellitus with other circulatory complications (ICD-10 - E11.59) Increase dose to 12.5 mg, follow up in 2 months 03/09/2025 Morbid obesity (ICD-10 - E66.01) 10/22/2024 Healthcare maintenance (ICD-10 - Z00.00) Due for colonoscopy, declined at this time while undergoing dizziness workup. Will obtain A1c and BMP today. Plan Of Treatment Pending Test Test Name Order Date Physical Therapy : Lymphedema 01/09/2022 M-Complete Blood Count Auto Diff 023 M-Comprehensive Metabolic Panel 08/30/19 23 M-Hemoglobin A1C 08/30/2022 M-Uric Acid 08/30/2022 M-Lipid Panel 08/30/2022 M-Thyroid Stimulating Hormone 08/30/2022 CT Scan : Chest, Lung Cancer Screening 0 08/30/2022 Uric Acid 05/17/2022 Physical Therapy Eval and Treat 07/09/20 24 Next Appt Details Provider Name:Tej Hebert, 09/16/2025 11:45:00 AM, [address], [place], [address], Insurance Providers Payer Name Payer Address Payer Phone Subscriber Number Group Number Insured Name Patient Relationship to Insured Coverage Start Date Coverage End Date [facility] [employer] [employer] [address] [place] [address] [phone] [id number] OmkarMaximo Self - patient is the insured Medications Administered Medication Instructions Date of Administration Dosage Notes Dexamethasone 4mg Injection 01/03/2023 4 mg Medical (General) History Medical History History ICD Code Heart Attack HTN Hyperlipidemia Umbilical Hernia Surgical History Surgery Date(Month/Year) 2 cardiac stents 2016 1 cardiac stent 2018 left rotator cuff repair 10/2021 Colonoscopy s/p diverticulitis, negative for polys 2013 lt shoulder surgery 2021 Heart Cath 05/2024 Hernia Repair 07/2024 Hospitalization History Reason Date(Month/Year) lt shoulder surgery 2021 2 cardiac stents 2016
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
--- OUTSIDE RECORDS SUMMARY | 2025-07-22 13:32 | XMS_ITS | Referral Summary ---
Author Organization [facility] [facility] ([place], [place], [place], [place], [place]) Address [address] [place] [address] Care Team Providers Care Tank Stave Assembler Name Role Phone Unavailable Primary Care Provider Unavailabl e Social History Tobacco Use Types Packs/Day Years Used Date Smoking Tobacco: Never Assessed Sex and Gender Information Value Date Recorded Sex Assigned at Male 01/31/2022 9:03 PM CDT Legal Sex Male 9:03 PM CDT Gender Identity Male 01/31/2022 9:03 PM CDT Sexual Orientation Not on file Plan of Treatment Not on file
--- OUTSIDE RECORDS SUMMARY | 2025-07-22 13:32 | XMS_ITS | Clinical Summary ---
Author Organization [facility] ([place], [place], [place], [place], [place]) Address [address] [place] [address] Care Team Providers Care Corner Block Cutter Name Role Phone Unavailable Primary Care Provider [...]
== END 2025-07-22 23:59 | disposition home or self-care (01) ==
LOC: RT 12:46
PROVIDERS: PCP Internal Medicine Adolescent Medicine; Visit Provider Nurse Practitioner
DX: I65.23 Occlusion and stenosis of bilateral carotid arteries (principal); I25.118 Atherosclerotic heart disease of native coronary artery with other forms of angina pectoris; I10 Essential (primary) hypertension; E78.5 Hyperlipidemia, unspecified; E66.9 Obesity, unspecified; R29.90 Unspecified symptoms and signs involving the nervous system
CPT/HCPCS: 93880